=== PATIENT | male | born 1940 | race Caucasian/White ===

== ENCOUNTER 2020-05-06 10:36 | Inpatient (IN) | payer BC, MEDICARE ==
[2020-05-06] MEDS ORDERED: SODIUM CHLORIDE 0.9% 500 ML 500 ML IV STA (10:46)
--- NOTE | 2020-05-06 10:51 | ED ---
General Adult HPI - General Stated complaint: Altered mental status Time Seen by Provider: 05/06/20 10:39 Source: patient Mode of arrival: EMS Limitations: no limitations - History of Present Illness Initial comments: Dictation was produced using [employer] dictation software. please excuse any grammatical, word or spelling errors. This patient was cared for during a federal and state declared state of emergency secondary to Covid 19 Chief Complaint: 79-year-old male presents with altered mental status. History of Present Illness: 79-year-old male is brought in by EMS for altered mental status. Patient was allegedly on the phone with his significant other who lives in [place]. He was found to be really abnormal with his speech over the phone. EMS was called. Patient allegedly lives alone. He has his family members assist with taking care of him. Patient unable to provide history of present illness this time. According to EMS who received report from patient's daughter that he's been seemingly more confused over the last 7 days however considerably worse this morning. It's unclear with patient's medical history is. Patient unable to provide detailed HPI. Unable to obtain significant mental status PHYSICAL EXAM: General Impression: Alert and oriented x2/4, not in acute distress HEENT: Normocephalic atraumatic, extra-ocular movements intact, pupils equal and reactive to light bilaterally, mucous membranes moist. Cardiovascular: Heart regular rate and rhythm Chest: Able to complete full sentences, no retractions, no tachypnea Abdomen: abdomen soft, non-tender, non-distended, no organomegaly Musculoskeletal: Pulses present and equal in all extremities, no peripheral edema Motor: no focal deficits noted Neurological: CN II-XII grossly intact, no focal motor or sensory deficits noted, and NIH 4, aphasic Skin: Intact with no visualized rashes ED course: 79-year-old male with unknown past medical history presents with altered mental status. Code stroke was paged. Patient is NIH of 0. He is aphasic. At this point is unclear when the onset of symptoms was. Rest of history suggesting of 7 days or yesterday. Case is discussed with Dr. Murray, stroke neurologist at approximately 10:55 AM. Patient not a TPA candidate. Computed tomography scan of the brain shows no acute processes. Chest x-ray does show patchy infiltrates concerning for pneumonia. CT angios the head and neck shows 60% luminal diameter narrowing of the proximal right internal carotid artery. No other vascular negative she is noted. There are patchy groundglass opacities in the lungs concerning for coronavirus. Pending rapid coronavirus test. Patient given azithromycin. EKG shows no onset atrial fibrillation. Patient started on heparin. Patient given aspirin. Patient be admitted. Case was discussed with Dr. Ruby who is willing to accept patients care. Neurology will be consulted. EKG interpretation: Ventricular rate 81, A. fib, QRS 96, QTC 462. No IL prolongation, no QTC prolongation, no ST or T-wave changes noted. - Related Data Home Medications Medication Instructions Recorded Confirmed Atorvastatin Calcium [Lipitor] 20 mg PO DAILY 05/06/20 05/06/20 Clopidogrel [Plavix] 75 mg PO DAILY 05/06/20 05/06/20 Lisinopril-Hctz 20-25 mg 1 tab PO DAILY 05/06/20 05/06/20 [Zestoretic 20-25] Allergies Allergy/AdvReac Type Severity Reaction Status Date / Time No Known Allergies Allergy Verified 05/06/20 11:56 Review of Systems ROS Statement: Those systems with pertinent positive or pertinent negative responses have been documented in the HPI. ROS Other: All systems not noted in ROS Statement are negative. Past Medical History Past Medical History: CVA/TIA History of Any Multi-Drug Resistant Organisms: None Reported Past Surgical History: Unable to Obtain Past Psychological History: No Psychological Hx Reported Smoking Status: Never smoker Past Alcohol Use History: None Reported Past Drug Use History: None Reported General Exam Limitations: no limitations Course Vital Signs 05/06/20 05/06/20 11:23 12:43 Temperature 98.5 F Pulse Rate 77 78 Respiratory 16 14 Rate Blood Pressure 137/70 109/70 O2 Sat by Pulse 97 96 Oximetry Medical Decision Making - Lab Data Result diagrams: 05/06/20 11:24 05/06/20 11:24 Lab Results 05/06/20 05/06/20 05/06/20 Range/Units 11:24 11:24 11:24 WBC 3.4 L (3.8-10.6) k/uL RBC 3.91 L (4.30-5.90) m/uL Hgb 12.5 L (13.0-17.5) gm/dL Hct 36.2 L (39.0-53.0) % MCV 92.6 (80.0-100.0) fL MCH 31.9 (25.0-35.0) pg MCHC 34.5 (31.0-37.0) g/dL RDW 13.0 (11.5-15.5) % Plt Count 178 (150-450) k/uL MPV 7.6 Neutrophils % 83 % Lymphocytes % 8 % Monocytes % 7 % Eosinophils % 0 % Basophils % 0 % Neutrophils # 2.8 (1.3-7.7) k/uL Lymphocytes # 0.3 L (1.0-4.8) k/uL Monocytes # 0.2 (0-1.0) k/uL Eosinophils # 0.0 (0-0.7) k/uL Basophils # 0.0 (0-0.2) k/uL PT 11.4 (9.0-12.0) sec INR 1.1 (<1.2) APTT 19.2 L (22.0-30.0) sec Sodium 131 L (137-145) mmol/L Potassium 3.7 (3.5-5.1) mmol/L Chloride 97 L (98-107) mmol/L Carbon Dioxide 26 (22-30) mmol/L Anion Gap 8 mmol/L BUN 63 H (9-20) mg/dL Creatinine 1.27 H (0.66-1.25) mg/dL Est GFR (CKD-EPI)AfAm 62 (>60 ml/min/1.73 sqM) Est GFR (CKD-EPI)NonAf 53 (>60 ml/min/1.73 sqM) Glucose 157 H (74-99) mg/dL Calcium 7.8 L (8.4-10.2) mg/dL Total Bilirubin 1.2 (0.2-1.3) mg/dL AST 49 (17-59) U/L ALT 30 (4-49) U/L Alkaline Phosphatase 32 L (38-126) U/L Troponin I (0.000-0.034) ng/mL Total Protein 5.5 L (6.3-8.2) g/dL Albumin 3.0 L (3.5-5.0) g/dL 12/15/20 Range/Units 11:24 WBC (3.8-10.6) k/uL RBC (4.30-5.90) m/uL Hgb (13.0-17.5) gm/dL Hct (39.0-53.0) % MCV (80.0-100.0) fL MCH (25.0-35.0) pg MCHC (31.0-37.0) g/dL RDW (11.5-15.5) % Plt Count (150-450) k/uL MPV Neutrophils % % Lymphocytes % % Monocytes % % Eosinophils % % Basophils % % Neutrophils # (1.3-7.7) k/uL Lymphocytes # (1.0-4.8) k/uL Monocytes # (0-1.0) k/uL Eosinophils # (0-0.7) k/uL Basophils # (0-0.2) k/uL PT (9.0-12.0) sec INR (<1.2) APTT (22.0-30.0) sec Sodium (137-145) mmol/L Potassium (3.5-5.1) mmol/L Chloride (98-107) mmol/L Carbon Dioxide (22-30) mmol/L Anion Gap mmol/L BUN (9-20) mg/dL Creatinine (0.66-1.25) mg/dL Est GFR (CKD-EPI)AfAm (>60 ml/min/1.73 sqM) Est GFR (CKD-EPI)NonAf (>60 ml/min/1.73 sqM) Glucose (74-99) mg/dL Calcium (8.4-10.2) mg/dL Total Bilirubin (0.2-1.3) mg/dL AST (17-59) U/L ALT (4-49) U/L Alkaline Phosphatase (38-126) U/L Troponin I 0.050 H* (0.000-0.034) ng/mL Total Protein (6.3-8.2) g/dL Albumin (3.5-5.0) g/dL Disposition Clinical Impression: Stroke, New onset a-fib, Pneumonia Disposition: ADMITTED IP TO THIS [facility] Condition: Fair Referrals: Naz Ruby DO [Primary Care Provider] - 1-2 days Decision Time: 13:09
--- NOTE | 2020-05-06 11:12 | CT ---
EXAMINATION TYPE: CT brain wo con for TPA DATE OF EXAM: 05/06/2020 COMPARISON: 05/16/2020 INDICATION: Neuro deficits DLP: 1074.8 mGycm, Automated exposure control for dose reduction was used. CONTRAST: None CT of the brain is performed utilizing 3 mm thick sections through the posterior fossa and 3 mm thick sections through the remaining calvarium. Study is performed within 24 hours of arrival to the hosp ital. No abnormal hyperdensity is present to suggest an acute intracranial hemorrhage. No mass lesion is evident. Physiologic basal ganglion calcifications present bilaterally. No acute infarcts are evident. Ventricles and sulci are prominent for the patient age. Paranasal sinuses and mastoid air cells within the [id number] are clear. No significant interval change. IMPRESSIONS: 1. Atrophy. 2. No acute intracranial process.
--- NOTE | 2020-05-06 11:39 | XR ---
EXAMINATION TYPE: XR chest 2V DATE OF EXAM: 05/06/2020 COMPARISON: 06/16/2013 TECHNIQUE: PA and lateral views submitted. HISTORY: Altered mental status FINDINGS: There is patchy bilateral areas of consolidation and interstitial prominence. Prominence the right hi lum also noted. Patient is rotated which may account for the finding. No sizable pneumothorax. Arthro joel of the shoulders. Heart size normal. IMPRESSION: 1. Patchy bilateral infiltrates correlate for developing pneumonia, interstitial pneumonia or venous congestion
[2020-05-06 11:40] LABS: Basophils % (A) 0 %; Eosinophils % (A) 0 %; HCT 36.2 % (39.0-53.0); HGB 12.5 gm/dL (13.0-17.5); Lymphocytes # (A) 0.3 k/uL (1.0-4.8); Lymphocytes % (A) 8 %; MCH 31.9 pg (25.0-35.0); MCHC 34.5 g/dL (31.0-37.0); MCV 92.6 fL (80.0-100.0); Mean Platelet Volume 7.6; Monocytes # (A) 0.2 k/uL (0-1.0); Monocytes % (A) 7 %; Neutrophils # (A) 2.8 k/uL (1.3-7.7); Neutrophils % (A) 83 %; Platelet Count 178 k/uL (150-450); RBC 3.91 m/uL (4.30-5.90); WBC 3.4 k/uL (3.8-10.6)
[2020-05-06 11:49] LABS: Calcium 7.8 mg/dL (8.4-10.2); Potassium 3.7 mmol/L (3.5-5.1); Total Bilirubin 1.2 mg/dL (0.2-1.3); Total Protein 5.5 g/dL (6.3-8.2)
[2020-05-06 11:57] LABS: INR 1.1 (<1.2); Prothrombin Time 11.4 sec (9.0-12.0)
--- NOTE | 2020-05-06 12:13 | CT ---
EXAMINATION TYPE: CT angio head neck DATE OF EXAM: 05/06/2020 HISTORY: AMS, code stroke. Acute onset neuro deficit. COMPARISON: CTA neck March 11, 2016 CT DLP: 574.6 mGycm. Automated Exposure Control for Dose Reduction was Utilized. TECHNIQUE: CTA scan of the head and neck are performed with IV Contrast, patient injected with 65 mL of Isovue 370, axial images are obtained, coronal and sagittal reformatted images are reviewed. Thre e-D reconstructed images are created on an independent workstation and reviewed. FINDINGS: Carotid/Vascular Structures: Normal three-vessel origin from aortic arch. Normal origin right common carotid artery from the right brachiocephalic artery. Stable mild to moderate eccentric noncalcified plaque in the left subclavian artery. No significant stenosis. No significant plaque or stenosis righ t common carotid artery. Persistent severe predominantly noncalcified plaque right carotid bulb exten ds into proximal internal carotid artery causing significant stenosis over roughly 1.0 to 1.5 cm segm ent, ligament diameter narrowed to 2.0 mm and reconstitutes to 5.0 mm superior to this. This has prog ressed from 2016 study. Remainder right internal carotid artery shows mild calcified plaque. No signi ficant plaque or stenosis right external carotid artery. There is [id number] calcified plaque l eft carotid bulb extending into proximal internal carotid artery without significant stenosis. Remain mery of common and internal carotid arteries is unremarkable. Patent external carotid artery. Dominant right vertebral artery filling the basilar artery is redemonstrated. Patent left posterior c ommunicating artery is redemonstrated. Hypoplastic right posterior communicating artery. No new signi ficant focal stenosis or aneurysmal change of the posterior circulation. Patent small caliber anterio r communicating artery. No significant focal stenosis or aneurysmal change in the anterior circulatio n. Other: Moderate disc space narrowing and spurring C4-C5 through C6-C7 levels with straightening align ment. Visualized upper lungs show partial visualization of groundglass opacities and peripheral organ izing consolidations bilaterally. IMPRESSION: 1. Significant stenosis proximal right internal carotid artery up to 60% luminal diameter narrowing p rogressed from 2016 study. 2. No new significant stenosis or aneurysm at level of [place]. 3. Patchy areas of groundglass opacity and organizing peripheral consolidation in the visualized uppe r lungs, correlate to exclude covid-19 infection in current environment.
[2020-05-06 12:21] LABS: Partial Thromboplastin Time 19.2 sec (22.0-30.0)
[2020-05-06] MEDS ORDERED: HEPARIN SODIUM,PORCINE 5,000 UNIT/ML 1 ML VIAL IV ONE (12:58)
[2020-05-06] MEDS ORDERED: AZITHROMYCIN 500 MG in SODIUM CHLORIDE 0.9% 250 ML IVPB STA (12:58)
[2020-05-06] MEDS ORDERED: HEPARIN SODIUM,PORCINE 5,000 UNIT/ML 1 ML VIAL IV PRN (12:58)
[2020-05-06] MEDS ORDERED: ASPIRIN 81 MG PO STA (13:07)
[2020-05-06] MEDS: SODIUM CHLORIDE 0.9% 1,000 ML IV SCH ×2 (14:31→23:52)
[2020-05-06] MEDS: HEPARIN SOD,PORK IN 0.45% NACL 25,000 UNIT in 0.45% NACL 1 250ML.BAG IV SCH (14:41)
[2020-05-06] MEDS ORDERED: ACETAMINOPHEN TAB 325 MG TAB PO PRN (18:46)
[2020-05-06] MEDS ORDERED: ATORVASTATIN 80 MG TAB PO SCH (21:00)
[2020-05-06] MEDS: TIMOLOL 0.5% OPHTH DROPS 5 ML BTL RIGHT EYE SCH (22:16)
[2020-05-06] MEDS: prednisoLONE ACETATE 1% OPHTH DROPS 5 ML BTL RIGHT EYE SCH (22:17)
[2020-05-07 06:31] LABS: Cholesterol 79 mg/dL (<200); HDL Cholesterol 23 mg/dL (40-60); LDL Cholesterol,Calculated 43 mg/dL (0-99); Triglycerides 65 mg/dL (<150)
[2020-05-07] MEDS ORDERED: ASPIRIN 325 MG TAB PO SCH (09:00)
[2020-05-07 09:02] LABS: African American GFR (CKD) >90 (>60 ml/min/1.73 sqM); Anion Gap 2 mmol/L; Blood Urea Nitrogen 34 mg/dL (9-20); Calcium 7.6 mg/dL (8.4-10.2); Carbon Dioxide 31 mmol/L (22-30); Chloride 102 mmol/L (98-107); Glucose 117 mg/dL (74-99); Non-African American GFR(CKD) 85 (>60 ml/min/1.73 sqM); Potassium 3.4 mmol/L (3.5-5.1); Sodium 135 mmol/L (137-145)
[2020-05-07 09:03] LABS: Basophils % (A) 1 %; Eosinophils % (A) 1 %; HCT 34.7 % (39.0-53.0); HGB 12.4 gm/dL (13.0-17.5); Lymphocytes # (A) 0.5 k/uL (1.0-4.8); Lymphocytes % (A) 12 %; MCH 33.5 pg (25.0-35.0); MCHC 35.9 g/dL (31.0-37.0); MCV 93.5 fL (80.0-100.0); Mean Platelet Volume 7.4; Monocytes # (A) 0.3 k/uL (0-1.0); Monocytes % (A) 9 %; Neutrophils # (A) 2.9 k/uL (1.3-7.7); Neutrophils % (A) 77 %; Platelet Count 169 k/uL (150-450); RBC 3.71 m/uL (4.30-5.90); RDW 12.3 % (11.5-15.5); WBC 3.8 k/uL (3.8-10.6)
[2020-05-07] MEDS: prednisoLONE ACETATE 1% OPHTH DROPS 5 ML BTL RIGHT EYE SCH ×3 (10:13→21:11)
[2020-05-07] MEDS: TIMOLOL 0.5% OPHTH DROPS 5 ML BTL RIGHT EYE SCH ×3 (10:13→21:11)
[2020-05-07] MEDS: CLOPIDOGREL 75 MG TAB PO SCH (10:13)
[2020-05-07] MEDS: ATORVASTATIN 20 MG TAB PO SCH (10:13)
[2020-05-07] MEDS: LISINOPRIL-HCTZ 20-25 MG 1 EACH TAB PO SCH (10:13)
[2020-05-07 11:51] LABS: Glucose,Whole Blood 109 mg/dL (75-99)
[2020-05-07] MEDS ORDERED: Potassium Replacement Protocol 1 EACH MISC MISCELLANE PRN (12:48)
--- NOTE | 2020-05-07 13:00 | P.CNNES ---
History of Present Illness Consult date: 05/07/20 Requesting physician: Papito Hawkins Reason for Consult: CVA History of Present Illness: Patient is a 79-year-old male, came to the hospital yesterday at 10:36 AM by ambulance for altered mental status. Patient does not know why he came to the hospital, states "somebody sent me here". according to the electronic records, patient was on the phone with his significant other who lives in [place]. She noted that patient was speaking abnormal over the phone. Patient has been seemingly more confused over last 7 days however considerably worse this morning. Stroke code was initiated, his NIH stroke scale was 0. Patient was aphasic. Patient's onset of symptoms was not clear, therefore patient was considered not a candidate for TPA. Vital signs on arrival was blood pressure 137/70, pulse is 77, temperature 98. 5.blood test showsWBC 3.4 hemoglobin 12.5 and platelets 178. PT/INR normal, sodium 131 potassium 3.7, BUN 63, creatinine 1.27, troponin mildly elevated 0.05,total cholesterol 79, LDL 43, HDL 23 and triglycerides 65. Patient is collins virus positive. Computed tomography scan of head showed no acute process, cerebral atrophy. CTA of head and neck showed significant stenosis proximal right ICA up to 60% luminal diameter narrowing progressed from 2016 study. No new significant stenosis or aneurysm at the level of [place]. Patchy areas of groundglass opacity and organizing peripheral consolidation in the visualized upper lungs, correlate to exclude Covid 19 infection in current environment. Patient's chest x-ray showed patchy bilateral infiltrates correlate for developing pneumonia, interstitial pneumonia or venous congestion. EKG shows atrial fibrillation. Patient has been started on heparin infusion. Patient takes Zestoretic, Plavix 75 mg, Lipitor 20 mg at home. Review of Systems patient denies any chest pain shortness of breath wheezing or cough. Denies any double vision, loss of vision, hearing loss, hoarseness, sore throat, dysphagia. Denies any abdominal pain nausea vomiting. All other review of systems unremarkable. Past Medical History Past Medical History: Atrial Fibrillation, CVA/TIA History of Any Multi-Drug Resistant Organisms: None Reported Past Surgical History: No Surgical Hx Reported Past Anesthesia/Blood Transfusion Reactions: No Reported Reaction Past Psychological History: No Psychological Hx Reported Smoking Status: Never smoker Past Alcohol Use History: None Reported Past Drug Use History: None Reported Medications and Allergies Home Medications Medication Instructions Recorded Confirmed Type Atorvastatin Calcium [Lipitor] 20 mg PO DAILY 05/06/20 05/06/20 History Clopidogrel [Plavix] 75 mg PO DAILY 05/06/20 05/06/20 History Lisinopril-Hctz 20-25 mg 1 tab PO DAILY 05/06/20 05/06/20 History [Zestoretic 20-25] Timolol 0.5% Ophth Soln [Timoptic 1 drop RIGHT EYE TID 05/06/20 05/06/20 History 0.5% Ophth Soln] prednisoLONE ACETATE 1% OPHTH 1 drop RIGHT EYE TID 05/06/20 05/06/20 History [Pred Forte 1%] Allergies Allergy/AdvReac Type Severity Reaction Status Date / Time No Known Allergies Allergy Verified 05/06/20 11:56 Physical Examination - Vital Signs Vital Signs: Vital Signs Temp Pulse Pulse Resp BP BP Pulse Ox 05/07/20 04:00 98.0 F 65 18 105/58 94 L 05/07/20 02:00 65 18 05/07/20 00:00 97.6 F 65 18 130/72 97 05/06/20 20:00 97.4 F L 65 18 116/56 94 L 05/06/20 16:32 99.1 F 61 16 115/62 99 05/06/20 15:10 69 18 129/81 100 05/06/20 14:04 69 18 103/63 98 05/06/20 12:43 98.5 F 78 14 109/70 96 05/06/20 11:23 77 16 137/70 97 Intake and Output 05/06/20 05/07/20 05/07/20 22:59 06:59 14:59 Intake Total 236 944.206 Output Total 465 Balance 236 479.206 Intake: IV 800 0.9 800 Intake, IV Titration 144.206 Amount Heparin Sod,Pork in 0.45% 144.206 NaCl 25,000 unit In 0.45 % NaCl 1 250ml.bag @ 12 UNITS/KG/HR 9.972 mls/hr IV .Q24H [facility] Rx#: [id number] Oral 236 Output: Urine 465 Other: Voiding Method Toilet Toilet # Voids 1 1 Weight 83.098 kg 76 kg on examination patient is an elderly male, in no acute distress. Patient is alert and awake. Speech and language functions are normal. Attention, concentration, fund of knowledge appears adequate. He knows that he is in [facility] in [facility] and that it is April 2020. Knows his name and age. On cranial nerve examination pupils are round and reactive to light, visual russell are full to confrontation, extraocular muscles are intact with no nystagmus. Face is symmetric, tongue protrudes to the midline. Palatal elevation and sensation normal. Hearing and shoulder shrug normal. On muscle strength testing there is no pronator drift and the strength is normal in arms and legs distally and proximally reflexes are 1+ and plantars downgoing. Sensory touch is equal. No ataxia for liduqm-rb-oein testing, tone and bulk of muscles normal. Gait deferred. On general examination, there is no obvious murmur, S1 and S2 audible, abdomen soft nontender, chest is clear, neck is supple, peripheral pulses are present. No edema. Results - Laboratory Findings CBC and BMP: 05/07/20 07:56 05/07/20 07:56 Abnormal Lab Findings: Abnormal Labs 05/06/20 05/06/20 05/06/20 11:24 11:24 11:24 WBC 3.4 L RBC 3.91 L Hgb 12.5 L Hct 36.2 L Lymphocytes # 0.3 L APTT 19.2 L Sodium 131 L Potassium Chloride 97 L Carbon Dioxide BUN 63 H Creatinine 1.27 H Glucose 157 H Calcium 7.8 L Alkaline Phosphatase 32 L Troponin I Total Protein 5.5 L Albumin 3.0 L HDL Cholesterol Coronavirus (PCR) 05/06/20 05/06/20 05/06/20 11:24 14:45 22:22 WBC RBC Hgb Hct Lymphocytes # APTT 76.4 H Sodium Potassium Chloride Carbon Dioxide BUN Creatinine Glucose Calcium Alkaline Phosphatase Troponin I 0.050 H* Total Protein Albumin HDL Cholesterol Coronavirus (PCR) Detected A 05/07/20 05/07/20 05/07/20 05:31 05:31 07:56 WBC RBC 3.71 L Hgb 12.4 L Hct 34.7 L Lymphocytes # 0.5 L APTT 67.7 H Sodium Potassium Chloride Carbon Dioxide BUN Creatinine Glucose Calcium Alkaline Phosphatase Troponin I Total Protein Albumin HDL Cholesterol 23 L Coronavirus (PCR) 05/07/20 05/07/20 07:56 07:56 WBC RBC Hgb Hct Lymphocytes # APTT Sodium 135 L Potassium 3.4 L Chloride Carbon Dioxide 31 H BUN 34 H Creatinine Glucose 117 H Calcium 7.6 L Alkaline Phosphatase Troponin I 0.043 H* Total Protein Albumin HDL Cholesterol Coronavirus (PCR) Assessment and Plan Assessment: * Probable TIA manifesting with transient aphasia, now seems to have resolved. His current examination is normal, with NIH stroke scale is 0. * New onset atrial fibrillation * Right ICA stenosis, 60%, progressed from 2016 study. * Acute COVID-19 infection. Plan: * Patient has been started on Apixaban 5 mg twice a day for atrial fibrillation, for secondary stroke prevention. * Patient is also on Plavix 75 mg daily for atherosclerotic carotid disease. Consider vascular surgical consultation. * Continue Lipitor 20 mg. Patient's lipids are well controlled, with belkys sterol 79, LDL 43, HDL 23 and triglycerides 65. * We will check hemoglobin A1c. * 2-D echo completed, results pending. Cardiology on the case.
[2020-05-07] MEDS: POTASSIUM CHLORIDE ER 20 MEQ TAB.ER PO SCH ×2 (13:22→13:23)
[2020-05-07] MEDS: APIXABAN 5 MG TAB PO SCH ×2 (13:22→21:10)
[2020-05-07] MEDS: SODIUM CHLORIDE 0.9% 1,000 ML IV SCH ×2 (13:22→21:13)
[2020-05-07] MEDS: HEPARIN SOD,PORK IN 0.45% NACL 25,000 UNIT in 0.45% NACL 1 250ML.BAG IV SCH (13:23)
--- NOTE | 2020-05-07 15:28 | P.CRDCN ---
History of Present Illness Consult date: 05/07/20 History of present illness: CHIEF COMPLAINT: New onset atrial fibrillation HISTORY OF PRESENT ILLNESS: This is a 79-year-old male with a past medical history significant for TIA, hyperlipidemia, hypertension. Patient is admitted to hospital secondary to possible CVA. We have been asked to see the patient in consultation for new onset atrial fibrillation. DIAGNOSTICS: EKG reveals atrial fibrillation with controlled ventricular rate Chest xray patchy bilateral infiltrates. Correlate for developing pneumonia, interstitial pneumonia, or venous congestion Laboratory data: W BC 3.8. Hemoglobin 12.4. Platelet count 169. Sodium 135. Potassium 3.4. BUN 34. Creatinine 0.81. Troponin 0.050. 0.043. Current home cardiac medications include Lipitor 20 mg daily, Plavix 75mg daily, and lisinopril-HCTZ 20-25mg daily REVIEW OF SYSTEMS: Thorough review of systems not completed secondary to limited evaluation/examination and due to Covid19 PHYSICAL EXAM: Thorough physical exam not completed secondary to limited evaluation/examination and due to Covid19 ASSESSMENT: Acute Covid 19 New-onset atrial fibrillation Possible CVA Hypertension Hyperlipidemia PLAN: Resume home cardiac medications Obtain 2-D echo to assess cardiac structure and function Continue Plavix 75 mg daily. Discontinue aspirin. Begin Eliquis 5 mg PO BID Further recommendations pending patient course Nurse practitioner note has been reviewed by physician. Signing provider agrees with the documented findings, assessment, and plan of care. Past Medical History Past Medical History: Atrial Fibrillation, CVA/TIA History of Any Multi-Drug Resistant Organisms: None Reported Past Surgical History: No Surgical Hx Reported Past Anesthesia/Blood Transfusion Reactions: No Reported Reaction Past Psychological History: No Psychological Hx Reported Smoking Status: Never smoker Past Alcohol Use History: None Reported Past Drug Use History: None Reported Medications and Allergies Home Medications Medication Instructions Recorded Confirmed Type Atorvastatin Calcium [Lipitor] 20 mg PO DAILY 05/06/20 05/06/20 History Clopidogrel [Plavix] 75 mg PO DAILY 05/06/20 05/06/20 History Lisinopril-Hctz 20-25 mg 1 tab PO DAILY 05/06/20 05/06/20 History [Zestoretic 20-25] Timolol 0.5% Ophth Soln [Timoptic 1 drop RIGHT EYE TID 05/06/20 05/06/20 History 0.5% Ophth Soln] prednisoLONE ACETATE 1% OPHTH 1 drop RIGHT EYE TID 05/06/20 05/06/20 History [Pred Forte 1%] Allergies Allergy/AdvReac Type Severity Reaction Status Date / Time No Known Allergies Allergy Verified 05/06/20 11:56 Physical Exam Vitals: Vital Signs Temp Pulse Resp BP Pulse Ox 05/07/20 14:00 76 18 05/07/20 12:00 98.0 F 76 18 133/63 95 05/07/20 08:00 98.6 F 68 18 160/70 96 05/07/20 04:00 98.0 F 65 18 105/58 94 L 05/07/20 02:00 65 18 05/07/20 00:00 97.6 F 65 18 130/72 97 05/06/20 20:00 97.4 F L 65 18 116/56 94 L 05/06/20 16:32 99.1 F 61 16 115/62 99 Intake and Output 05/07/20 05/07/20 05/07/20 06:59 14:59 22:59 Intake Total 944.206 288.614 Output Total 465 200 Balance 479.206 88.614 Intake: IV 800 0.9 800 Intake, IV Titration 144.206 48.614 Amount Heparin Sod,Pork in 0.45% 144.206 48.614 NaCl 25,000 unit In 0.45 % NaCl 1 250ml.bag @ 12 UNITS/KG/HR 9.972 mls/hr IV .Q24H [facility] Rx#: [id number] Oral 240 Output: Urine 465 200 Other: Voiding Method Toilet Toilet # Voids 1 1 Weight 76 kg Results 05/07/20 07:56 05/07/20 07:56 Cardiac Enzymes 05/07/20 Range/Units 07:56 Troponin I 0.043 H* (0.000-0.034) ng/mL Coagulation 05/06/20 05/07/20 05/07/20 Range/Units 22:22 05:31 11:49 APTT 76.4 H 67.7 H 38.3 H (22.0-30.0) sec Lipids 05/07/20 Range/Units 05:31 Triglycerides 65 (<150) mg/dL Cholesterol 79 (<200) mg/dL HDL Cholesterol 23 L (40-60) mg/dL CBC 05/07/20 Range/Units 07:56 WBC 3.8 (3.8-10.6) k/uL RBC 3.71 L (4.30-5.90) m/uL Hgb 12.4 L (13.0-17.5) gm/dL Hct 34.7 L (39.0-53.0) % Plt Count 169 (150-450) k/uL Comprehensive Metabolic Panel 05/07/20 Range/Units 07:56 Sodium 135 L (137-145) mmol/L Potassium 3.4 L (3.5-5.1) mmol/L Chloride 102 (98-107) mmol/L Carbon Dioxide 31 H (22-30) mmol/L BUN 34 H (9-20) mg/dL Creatinine 0.81 (0.66-1.25) mg/dL Glucose 117 H (74-99) mg/dL Calcium 7.6 L (8.4-10.2) mg/dL Current Medications Generic Name Dose Route Start Last Admin Trade Name Freq PRN Reason Stop Dose Admin Acetaminophen 650 mg 05/06/20 18:46 Acetaminophen Tab 325 Mg Tab PO Q6HR PRN Fever and/ or Pain Apixaban 5 mg 05/07/20 12:00 05/07/20 13:22 Apixaban 5 Mg Tab PO 5 mg BID [facility] Administration Atorvastatin Calcium 20 mg 05/07/20 09:00 05/07/20 10:13 Atorvastatin 20 Mg Tab PO 20 mg DAILY [facility] Administration Clopidogrel Bisulfate 75 mg 05/07/20 09:00 05/07/20 10:13 Clopidogrel 75 Mg Tab PO 75 mg DAILY [facility] Administration Lisinopril/HCTZ 1 each 05/07/20 09:00 05/07/20 10:13 Lisinopril-Hctz 20-25 Mg 1 Each Tab PO 1 each DAILY [facility] Administration Heparin Sodium (Porcine) 0 unit 05/06/20 12:58 Heparin Sodium,Porcine 5,000 Unit/Ml 1 Ml Vial IV 05/07/20 18:00 PER PROTOCOL PRN Low PTT Protocol Heparin Sodium/Sodium Chloride 250 mls @ 9.972 mls/hr 05/06/20 13:00 05/07/20 13:23 25,000 unit/ Sodium Chloride IV 05/07/20 18:00 10 units/kg/hr .Q24H [facility] 8.31 mls/hr Administration Protocol 12 UNITS/KG/HR Sodium Chloride 1,000 mls @ 100 mls/hr 05/06/20 13:15 05/07/20 13:22 Saline 0.9% IV 100 mls/hr .Q10H [facility] Administration Miscellaneous Information 1 each 05/07/20 12:48 Potassium Replacement Protocol 1 Each Misc MISCELLANE DAILY PRN Per Protocol Protocol Prednisolone Acetate 1 drops 05/06/20 22:00 05/07/20 10:13 Prednisolone Acetate 1% Ophth Drops 5 Ml Btl RIGHT EYE 1 drops TID [facility] Administration Timolol Maleate 1 drops 05/06/20 22:00 05/07/20 10:13 Timolol 0.5% Ophth Drops 5 Ml Btl RIGHT EYE 1 drops TID [facility] Administration Intake and Output 05/07/20 05/07/20 05/07/20 06:59 14:59 22:59 Intake Total 944.206 288.614 Output Total 465 200 Balance 479.206 88.614 Intake: IV 800 0.9 800 Intake, IV Titration 144.206 48.614 Amount Heparin Sod,Pork in 0.45% 144.206 48.614 NaCl 25,000 unit In 0.45 % NaCl 1 250ml.bag @ 12 UNITS/KG/HR 9.972 mls/hr IV .Q24H [facility] Rx#: [id number] Oral 240 Output: Urine 465 200 Other: Voiding Method Toilet Toilet # Voids 1 1 Weight 76 kg 05/07/20 07:56 05/07/20 07:56
[2020-05-07] MEDS ORDERED: APIXABAN 5 MG TAB PO SCH (21:00)
--- NOTE | 2020-05-07 23:37 | P.HPIM ---
History of Present Illness H&P Date: 05/07/20 Chief Complaint: weakness, AMS Rory Ambriz is a 79 yo M with PMH of HTN, TIA who presented to the hospital via EMS after his significant other noticed him to be slurry words and not making sense. Pt does not remember what brought him into the hospital, apparently he had been acting more confused and lethargic over the past few days and he was on the phone with his significant other when she noticed his behavior. Pt denies cough or shortness of breath although admits to fatigue. On presentation BP stable, WBC 3.4 with lymphopenia, Cr 1.27, trop 0.05, COVID PCR positive. EKG did show new onset atrial fibrillation, CT head no acute process. Review of Systems All systems: negative Constitutional: Reports fatigue, Denies chills, Denies fever Eyes: denies blurred vision, denies pain Ears, nose, mouth and throat: Denies headache, Denies sore throat Cardiovascular: Denies chest pain, Denies shortness of breath Respiratory: Denies cough Gastrointestinal: Denies abdominal pain, Denies diarrhea, Denies nausea, Denies vomiting Musculoskeletal: Denies myalgias Integumentary: Denies pruritus, Denies rash Neurological: Reports aphasia, Reports memory loss, Denies numbness, Denies weakness Psychiatric: Denies anxiety, Denies depression Endocrine: Denies fatigue, Denies weight change Past Medical History Past Medical History: Atrial Fibrillation, CVA/TIA History of Any Multi-Drug Resistant Organisms: None Reported Past Surgical History: No Surgical Hx Reported Past Anesthesia/Blood Transfusion Reactions: No Reported Reaction Past Psychological History: No Psychological Hx Reported Smoking Status: Never smoker Past Alcohol Use History: None Reported Past Drug Use History: None Reported Medications and Allergies Home Medications Medication Instructions Recorded Confirmed Type Atorvastatin Calcium [Lipitor] 20 mg PO DAILY 05/06/20 05/06/20 History Clopidogrel [Plavix] 75 mg PO DAILY 05/06/20 05/06/20 History Lisinopril-Hctz 20-25 mg 1 tab PO DAILY 05/06/20 05/06/20 History [Zestoretic 20-25] Timolol 0.5% Ophth Soln [Timoptic 1 drop RIGHT EYE TID 05/06/20 05/06/20 History 0.5% Ophth Soln] prednisoLONE ACETATE 1% OPHTH 1 drop RIGHT EYE TID 05/06/20 05/06/20 History [Pred Forte 1%] Allergies Allergy/AdvReac Type Severity Reaction Status Date / Time No Known Allergies Allergy Verified 05/06/20 11:56 Physical Exam Vitals: Vital Signs Temp Pulse Resp BP Pulse Ox 05/07/20 20:00 98.0 F 76 18 127/58 96 05/07/20 16:00 98.0 F 70 18 132/94 96 05/07/20 14:00 76 18 05/07/20 12:00 98.0 F 76 18 133/63 95 05/07/20 08:00 98.6 F 68 18 160/70 96 05/07/20 04:00 98.0 F 65 18 105/58 94 L 05/07/20 02:00 65 18 05/07/20 00:00 97.6 F 65 18 130/72 97 Intake and Output 05/07/20 05/07/20 05/08/20 14:59 22:59 06:59 Intake Total 288.614 240 Output Total 200 625 Balance 88.614 -385 Intake: Intake, IV Titration 48.614 Amount Heparin Sod,Pork in 0.45% 48.614 NaCl 25,000 unit In 0.45 % NaCl 1 250ml.bag @ 12 UNITS/KG/HR 9.972 mls/hr IV .Q24H [facility] Rx#: [id number] Oral 240 240 Output: Urine 200 625 Other: Voiding Method Toilet Urinal # Voids 1 General: well nourished, well developed, NAD. Vitals reviewed Eyes: PERRL, EOMI, conjunctiva normal HENT: normocephalic, mucus membranes moist Neck: supple, no JVD Lungs: normal respiratory effort, no wheezes or rales CV: Irregularly irregular, no murmur. Peripheral pulses 2+ Abdomen: soft, nondistended, no organomegaly Lymph: no cervical or axillary LAD Skin: warm and dry. Neuro: A&Ox3, normal mood and affect Results CBC & Chem 7: 05/07/20 07:56 05/07/20 07:56 Labs: Abnormal Lab Results - Last 24 Hours (Table) 05/06/20 05/07/20 05/07/20 Range/Units 14:45 05:31 05:31 RBC (4.30-5.90) m/uL Hgb (13.0-17.5) gm/dL Hct (39.0-53.0) % Lymphocytes # (1.0-4.8) k/uL APTT 67.7 H (22.0-30.0) sec Sodium (137-145) mmol/L Potassium (3.5-5.1) mmol/L Carbon Dioxide (22-30) mmol/L BUN (9-20) mg/dL Glucose (74-99) mg/dL POC Glucose (mg/dL) (75-99) mg/dL Calcium (8.4-10.2) mg/dL Troponin I (0.000-0.034) ng/mL HDL Cholesterol 23 L (40-60) mg/dL Coronavirus (PCR) Detected A (Not Detected) 05/07/20 05/07/20 05/07/20 Range/Units 07:56 07:56 07:56 RBC 3.71 L (4.30-5.90) m/uL Hgb 12.4 L (13.0-17.5) gm/dL Hct 34.7 L (39.0-53.0) % Lymphocytes # 0.5 L (1.0-4.8) k/uL APTT (22.0-30.0) sec Sodium 135 L (137-145) mmol/L Potassium 3.4 L (3.5-5.1) mmol/L Carbon Dioxide 31 H (22-30) mmol/L BUN 34 H (9-20) mg/dL Glucose 117 H (74-99) mg/dL POC Glucose (mg/dL) (75-99) mg/dL Calcium 7.6 L (8.4-10.2) mg/dL Troponin I 0.043 H* (0.000-0.034) ng/mL HDL Cholesterol (40-60) mg/dL Coronavirus (PCR) (Not Detected) 05/07/20 05/07/20 05/07/20 Range/Units 11:48 11:49 18:48 RBC (4.30-5.90) m/uL Hgb (13.0-17.5) gm/dL Hct (39.0-53.0) % Lymphocytes # (1.0-4.8) k/uL APTT 38.3 H 48.5 H (22.0-30.0) sec Sodium (137-145) mmol/L Potassium (3.5-5.1) mmol/L Carbon Dioxide (22-30) mmol/L BUN (9-20) mg/dL Glucose (74-99) mg/dL POC Glucose (mg/dL) 109 H (75-99) mg/dL Calcium (8.4-10.2) mg/dL Troponin I (0.000-0.034) ng/mL HDL Cholesterol (40-60) mg/dL Coronavirus (PCR) (Not Detected) Thrombosis Risk Factor Assmnt - Choose All That Apply Any of the Below Risk Factors Present?: No Each Risk Factor Represents 3 Points: Age 75 years or older Thrombosis Risk Factor Assessment Total Risk Factor Score: 3 Thrombosis Risk Factor Assessment Level: Moderate Risk Assessment and Plan (1) TIA (transient ischemic attack) Current Visit: Yes Status: Acute Code(s): G45.9 - TRANSIENT CEREBRAL ISCHEMIC ATTACK, UNSPECIFIED SNOMED Code(s): 985821260 (2) COVID-19 Current Visit: Yes Status: Acute Code(s): U07.1 - COVID-19 SNOMED Code(s): 752161696 (3) New onset a-fib Current Visit: Yes Status: Acute Code(s): I48.91 - UNSPECIFIED ATRIAL FIBRILLATION SNOMED Code(s): 28143624 Plan: 1. TIA, likely secondary to COVID 19 and atrial fibrillation. Neurology consult, resume lipitor and plavix 2. Atrial fibrillation. Cardiology consulted, echocardiogram, start eliquis and continue plavix 3. Essential hypertension. Continue lisinopril 4. COVID 19 positive, start azithromycin, vitamin C
[2020-05-08 03:42] LABS: Hemoglobin A1C 6.6 % (4.0-6.0)
[2020-05-08] MEDS: SODIUM CHLORIDE 0.9% 1,000 ML IV SCH ×3 (06:18→21:11)
--- NOTE | 2020-05-08 07:59 | ECHOF ---
Referral Reason:new afib, lv function MEASUREMENTS -------- HEIGHT: 172.7 cm WEIGHT: 75.7 kg BP: RVIDd: 3.1 cm (< 3.3) IVSd: 1.1 cm (0.6 - 1.1) LVIDd: 3.4 cm (3.9 - 5.3) LVPWd: 1.2 cm (0.6 - 1.1) IVSs: 2.5 cm LVIDs: 1.3 cm LVPWs: 2.4 cm LA Diam: 1.3 cm (2.7 - 3.8) Ao Diam: 2.6 cm (2.0 - 3.7) AV Cusp: 2.0 cm (1.5 - 2.6) LA Diam: 3.8 cm (2.7 - 3.8) MV EXCURSION: 12.148 mm (> 18.000) MV EF SLOPE: 102 mm/s (70 - 150) EPSS: 0.7 cm AR PHT: 988 ms RAP: 5.00 mmHg RVSP: 21.99 mmHg FINDINGS -------- Undetermined rhythm. This was a technically adequate study. The left ventricular size is normal. There is borderline concentric left ventricular hypertrophy. Overall left ventricular systolic function is normal with, an EF between 55 - 60 %. The right ventricle is normal in size. The left atrial size is normal. The right atrial size is normal. Aortic valve is trileaflet and is mildly thickened. Trace amount of aortic regurgitation. The mitral valve is normal. There is trace mitral regurgitation. The tricuspid valve appears structurally normal. Trace tricuspid regurgitation present. Right evert tricular systolic pressure is normal at < 35 mmHg. There is no pulmonic regurgitation present. The aortic root size is normal. IVC Not well visulized. There is no pericardial effusion. CONCLUSIONS -------- 1. The left ventricular size is normal. 2. There is borderline concentric left ventricular hypertrophy. 3. Overall left ventricular systolic function is normal with, an EF between 55 - 60 %. 4. Aortic valve is trileaflet and is mildly thickened. 5. Trace amount of aortic regurgitation. 6. There is trace mitral regurgitation. 7. Trace tricuspid regurgitation present. 8. There is no pericardial effusion. CAR TOP BOLTER: Serene Ruelas RD
[2020-05-08] MEDS: CLOPIDOGREL 75 MG TAB PO SCH (08:43)
[2020-05-08] MEDS: ASCORBIC ACID 500 MG TAB PO SCH (08:43)
[2020-05-08] MEDS: APIXABAN 5 MG TAB PO SCH ×2 (08:43→21:06)
[2020-05-08] MEDS: LISINOPRIL-HCTZ 20-25 MG 1 EACH TAB PO SCH (08:43)
[2020-05-08] MEDS: ATORVASTATIN 20 MG TAB PO SCH (08:43)
[2020-05-08] MEDS: prednisoLONE ACETATE 1% OPHTH DROPS 5 ML BTL RIGHT EYE SCH ×3 (08:44→21:06)
[2020-05-08] MEDS: TIMOLOL 0.5% OPHTH DROPS 5 ML BTL RIGHT EYE SCH ×3 (08:44→21:06)
[2020-05-08] MEDS ORDERED: Potassium Replacement Protocol 1 EACH MISC MISCELLANE PRN (09:55)
[2020-05-08 12:13] LABS: Basophils % (A) 1 %; Eosinophils # (A) 0.1 k/uL (0-0.7); Eosinophils % (A) 1 %; HCT 35.7 % (39.0-53.0); HGB 12.2 gm/dL (13.0-17.5); Lymphocytes # (A) 0.6 k/uL (1.0-4.8); Lymphocytes % (A) 11 %; MCH 32.1 pg (25.0-35.0); MCHC 34.3 g/dL (31.0-37.0); MCV 93.7 fL (80.0-100.0); Mean Platelet Volume 7.4; Monocytes # (A) 0.3 k/uL (0-1.0); Monocytes % (A) 7 %; Neutrophils # (A) 3.9 k/uL (1.3-7.7); Neutrophils % (A) 79 %; Platelet Count 182 k/uL (150-450); RBC 3.81 m/uL (4.30-5.90)
[2020-05-08 12:30] LABS: African American GFR (CKD) >90 (>60 ml/min/1.73 sqM); Anion Gap 3 mmol/L; Blood Urea Nitrogen 24 mg/dL (9-20); Calcium 7.9 mg/dL (8.4-10.2); Carbon Dioxide 31 mmol/L (22-30); Chloride 101 mmol/L (98-107); Glucose 147 mg/dL (74-99); Non-African American GFR(CKD) >90 (>60 ml/min/1.73 sqM); Potassium 4.3 mmol/L (3.5-5.1); Sodium 135 mmol/L (137-145)
--- NOTE | 2020-05-08 15:03 | P.PN ---
Subjective Progress Note Date: 05/08/20 CHIEF COMPLAINT: New onset atrial fibrillation HISTORY OF PRESENT ILLNESS: This is a 79-year-old male with a past medical history significant for TIA, hyperlipidemia, hypertension. Patient is admitted to hospital secondary to possible CVA. Cardiology is following for new onset atrial fibrillation. Echocardiogram completed revealing ejection fraction 55-60%, trace mitral regurgitation, trace aortic regurgitation, and trace tricuspid regurgitation. PHYSICAL EXAM: Thorough physical exam not completed secondary to limited evaluation/examination and due to Covid19 ASSESSMENT: Acute Covid 19 New-onset paroxysmal atrial fibrillation Possible CVA Hypertension Hyperlipidemia PLAN: Continue current cardiac medications Continue Eliquis and Plavix. Aspirin does not need to be resumed. We will sign off. Please reconsult if needed. Patient to follow-up on an outpatient basis. Nurse practitioner note has been reviewed by physician. Signing provider agrees with the documented findings, assessment, and plan of care. Objective - Vital Signs Vital signs: Vital Signs Temp 99.7 F H 05/08/20 13:00 Pulse 68 05/08/20 14:00 Resp 18 05/08/20 14:00 BP 130/68 05/08/20 12:00 Pulse Ox 96 05/08/20 13:00 Intake & Output 05/07/20 05/08/20 05/08/20 18:59 06:59 18:59 Intake Total 528.614 80 480 Output Total 625 200 Balance -96.386 -120 480 Weight 79 kg Intake: IV 80 0.9 80 Intake, IV Titration 48.614 Amount Heparin Sod,Pork in 0.45% 48.614 NaCl 25,000 unit In 0.45 % NaCl 1 250ml.bag @ 12 UNITS/KG/HR 9.972 mls/hr IV .Q24H [facility] Rx#: [id number] Oral 480 480 Output: Urine 625 200 Other: Voiding Method Toilet Urinal Urinal # Voids 1 2 - Labs CBC & Chem 7: 05/08/20 12:00 05/08/20 12:00 Labs: Abnormal Lab Results - Last 24 Hours (Table) 05/07/20 05/07/20 05/08/20 Range/Units 18:48 18:48 12:00 RBC 3.81 L (4.30-5.90) m/uL Hgb 12.2 L (13.0-17.5) gm/dL Hct 35.7 L (39.0-53.0) % Lymphocytes # 0.6 L (1.0-4.8) k/uL APTT 48.5 H (22.0-30.0) sec Sodium (137-145) mmol/L Carbon Dioxide (22-30) mmol/L BUN (9-20) mg/dL Glucose (74-99) mg/dL Hemoglobin A1c 6.6 H (4.0-6.0) % Calcium (8.4-10.2) mg/dL 05/08/20 Range/Units 12:00 RBC (4.30-5.90) m/uL Hgb (13.0-17.5) gm/dL Hct (39.0-53.0) % Lymphocytes # (1.0-4.8) k/uL APTT (22.0-30.0) sec Sodium 135 L (137-145) mmol/L Carbon Dioxide 31 H (22-30) mmol/L BUN 24 H (9-20) mg/dL Glucose 147 H (74-99) mg/dL Hemoglobin A1c (4.0-6.0) % Calcium 7.9 L (8.4-10.2) mg/dL
[2020-05-08] MEDS: CHOLECALCIFEROL 1,000 UNIT TAB PO SCH (17:14)
--- NOTE | 2020-05-08 18:30 | P.DS ---
Providers Date of admission: 05/06/20 13:12 Expected date of discharge: 05/08/20 Attending physician: Clifford Ruby MD Consults: 05/06/20 13:10 Consult Physician Routine Consulting Provider: Marshall Castaneda Consult Reason/Comments: cva Do you want consulting provider notified?: Yes Primary care physician: Naz Ruby Hospital Course: Final Diagnoses: Transient aphasia, suspect TIA, symptoms resolved Acute Covid-19 infection Carotid stenosis, right ICA 60%, progressed from 2016, further follow-up outpatient with vascular surgery New onset paroxysmal A. fib Essential hypertension Hyperlipidemia Hospital course:Rory Ambriz is a 79 yo M with PMH of HTN, TIA who presented to the hospital via EMS after his significant other noticed him to be slurry words and not making sense. Pt does not remember what brought him into the hospital, apparently he had been acting more confused and lethargic over the past few days and he was on the phone with his significant other when she noticed his behavior. Pt denies cough or shortness of breath although admits to fatigue. On presentation BP stable, WBC 3.4 with lymphopenia, Cr 1.27, trop 0.05, COVID PCR positive. EKG did show new onset atrial fibrillation, CT head no acute process. Evaluated by both cardiology and neurology with recommendations noted and appreciated. Echo reported EF 55-60%. Continues on Eliquis and Plavix, statin. Cleared by both neurology and cardiology for discharge. Minimal low-grade fevers currently. Continue monitoring overnight with discharge planning in progress for tomorrow morning, in a stable condition with guarded prognosis. The impression and plan of care has been dictated as directed. : I performed a history and examination of this patient, discussed the same with the dictator. I agree with the dictator's note ,documented as a scribe. Any additional findings or plans will be noted. Patient Condition at Discharge: Stable Plan - Discharge Summary New Discharge Prescriptions: New Apixaban [Eliquis] 5 mg PO BID #60 tab Zinc Sulfate [Orazinc] 220 mg PO DAILY #30 capsule Ascorbic Acid [Vitamin C] 500 mg PO DAILY tab Cholecalciferol [Vitamin D3 (25 Mcg = 1000 Iu)] 1,000 unit PO DAILY #30 tablet Continue Lisinopril-Hctz 20-25 mg [Zestoretic 20-25] 1 tab PO DAILY Clopidogrel [Plavix] 75 mg PO DAILY Atorvastatin Calcium [Lipitor] 20 mg PO DAILY Timolol 0.5% Ophth Soln [Timoptic 0.5% Ophth Soln] 1 drop RIGHT EYE TID prednisoLONE ACETATE 1% OPHTH [Pred Forte 1%] 1 drop RIGHT EYE TID Discharge Medication List Atorvastatin Calcium [Lipitor] 20 mg PO DAILY 05/06/20 [History] Clopidogrel [Plavix] 75 mg PO DAILY 05/06/20 [History] Lisinopril-Hctz 20-25 mg [Zestoretic 20-25] 1 tab PO DAILY 05/06/20 [History] Timolol 0.5% Ophth Soln [Timoptic 0.5% Ophth Soln] 1 drop RIGHT EYE TID 05/06/20 [History] prednisoLONE ACETATE 1% OPHTH [Pred Forte 1%] 1 drop RIGHT EYE TID 05/06/20 [History] Apixaban [Eliquis] 5 mg PO BID #60 tab 05/08/20 [Rx] Ascorbic Acid [Vitamin C] 500 mg PO DAILY tab 05/08/20 [Rx] Cholecalciferol [Vitamin D3 (25 Mcg = 1000 Iu)] 1,000 unit PO DAILY #30 tablet 05/08/20 [Rx] Zinc Sulfate [Orazinc] 220 mg PO DAILY #30 capsule 05/08/20 [Rx] Follow up Appointment(s)/Referral(s): [facility] [Provider Group] - 2 Weeks Naz Ruby DO [Primary Care Provider] - 3 Days [facility], [NON-STAFF] - 1-2 Days Fred Palacios DO [STAFF PHYSICIAN] - 2 Weeks Activity/Diet/Wound Care/Special Instructions: Outpatient follow-up with vascular surgery regarding right internal carotid artery stenosis up to 60% progressed from 2016.
--- NOTE | 2020-05-08 19:50 | P.PN ---
Subjective Progress Note Date: 05/08/20 Patient was seen for a follow-up. Offers no complaints. Denies headache, denies any new focal symptoms. Objective - Vital Signs Vital signs: Vital Signs Temp 98.6 F 05/08/20 16:00 Pulse 70 05/08/20 16:00 Resp 18 05/08/20 16:00 BP 145/67 05/08/20 16:00 Pulse Ox 97 05/08/20 16:00 Intake & Output 05/08/20 05/08/20 05/09/20 06:59 18:59 06:59 Intake Total 80 720 Output Total 200 600 Balance -120 120 Weight 79 kg Intake: IV 80 0.9 80 Oral 720 Output: Urine 200 600 Other: Voiding Method Urinal Urinal # Voids 2 0 # Bowel Movements 0 - Exam On examination patient is alert and awake in no distress. Patient is very hard of hearing. Patient's speech and language functions are normal. Patient's pupils are round and reacting, visual russell are full, extraocular muscles intact, face is symmetric and tongue protrudes the midline. On muscle strength testing there is no pronator drift and the strength is normal in arms and legs. No ataxia. Sensations are equal with no neglect. - Labs CBC & Chem 7: 05/08/20 12:00 05/08/20 12:00 Labs: Abnormal Lab Results - Last 24 Hours (Table) 05/07/20 05/08/20 05/08/20 Range/Units 18:48 12:00 12:00 RBC 3.81 L (4.30-5.90) m/uL Hgb 12.2 L (13.0-17.5) gm/dL Hct 35.7 L (39.0-53.0) % Lymphocytes # 0.6 L (1.0-4.8) k/uL Sodium 135 L (137-145) mmol/L Carbon Dioxide 31 H (22-30) mmol/L BUN 24 H (9-20) mg/dL Glucose 147 H (74-99) mg/dL Hemoglobin A1c 6.6 H (4.0-6.0) % Calcium 7.9 L (8.4-10.2) mg/dL Assessment and Plan Assessment: * Probable TIA manifesting with transient aphasia, now seems to have resolved. His current examination is normal, with NIH stroke scale is 0. * New onset atrial fibrillation * Right ICA stenosis, 60%, progressed from 2016 study. * Acute COVID-19 infection. Plan: * Patient has been started on Apixaban 5 mg twice a day for atrial fibrillation, for secondary stroke prevention. * Patient is also on Plavix 75 mg daily for atherosclerotic carotid disease. Consider vascular surgical consultation. * Continue Lipitor 20 mg. Patient's lipids are well controlled, with cholesterol 79, LDL 43, HDL 23 and triglycerides 65. * Hemoglobin A1c 6.6, well controlled. * 2-D echo revealed normal left-ventricular size, borderline concentric LVH, EF is 55-60%. Aortic valve is trileaflet and is mildly thickened. Trace AR. Mild MR. Cardiology on the case. * Neurologically clear for discharge. We will sign off. Please reconsult if any concerns.
[2020-05-09 04:35] VITALS: RESP 16; TEMP 98.1
[2020-05-09] MEDS: ASCORBIC ACID 500 MG TAB PO SCH (09:45)
[2020-05-09] MEDS: ATORVASTATIN 20 MG TAB PO SCH (09:45)
[2020-05-09] MEDS: CLOPIDOGREL 75 MG TAB PO SCH (09:45)
[2020-05-09] MEDS: APIXABAN 5 MG TAB PO SCH (09:45)
[2020-05-09] MEDS: LISINOPRIL-HCTZ 20-25 MG 1 EACH TAB PO SCH (09:45)
[2020-05-09] MEDS: CHOLECALCIFEROL 1,000 UNIT TAB PO SCH (09:45)
[2020-05-09] MEDS: TIMOLOL 0.5% OPHTH DROPS 5 ML BTL RIGHT EYE SCH (09:47)
[2020-05-09] MEDS: prednisoLONE ACETATE 1% OPHTH DROPS 5 ML BTL RIGHT EYE SCH (09:47)
[2020-05-09 13:09] VITALS: BP 114/68; PULSE 72
== END 2020-05-09 11:54 | disposition home health service (06) | DRG 177 ==
LOC: EC 10:36 → 3SCARD 13:12
PROVIDERS: ADMIT Family Medicine; ATTEND Family Medicine
DX: U07.1 COVID-19 (principal); J12.89 Other viral pneumonia; R47.01 Aphasia; G45.9 Transient cerebral ischemic attack, unspecified; I48.91 Unspecified atrial fibrillation; R29.700 NIHSS score 0; E11.9 Type 2 diabetes mellitus without complications; D72.810 Lymphocytopenia; I65.21 Occlusion and stenosis of right carotid artery; I10 Essential (primary) hypertension; I48.0 Paroxysmal atrial fibrillation; E78.5 Hyperlipidemia, unspecified; Z79.899 Other long term (current) drug therapy; Z79.02 Long term (current) use of antithrombotics/antiplatelets; Z86.73 Personal history of transient ischemic attack (TIA), and cerebral infarction without residual deficits
CPT/HCPCS: 36415; 70450; 70496; 70498; 71046; 80048; 80053; 80061; 83036; 83735; 84484; 85025; 85610; 85730; 93005; 93306; 96365; 99285

== ENCOUNTER → 2020-06-19 | Outpatient (CLI) | payer MEDICARE ==
--- NOTE | 2020-06-19 19:16 | MR ---
MR brain without contrast HISTORY: Cerebrovascular accident, behavior changes, memory loss and balance Multiplanar multisequence imaging through the brain Correlation CT brain 05/06/2020 There is no restricted diffusion. Cortical atrophy is again noted. Cerebellopontine angles, corpus ca llosum, pituitary, cervical medullary junction are unremarkable. There is no hemorrhage or hydrocepha priscila. Periventricular scattered and confluent hyperintensities are present on inversion recovery T2-we ighted sequences, approximately 15-20 lesions are present. Mucoperiosteal thickening present within t he ethmoid air cells. The orbits show symmetric appearance. There are normal vascular flow voids. IMPRESSION: Age-related changes of atrophy and chronic small vessel ischemia.
== END | disposition home or self-care (01) ==
LOC: RADMRIMAIN 07:25
PROVIDERS: ATTEND Psychiatry & Neurology Neurology
DX: I67.82 Cerebral ischemia (principal); G31.1 Senile degeneration of brain, not elsewhere classified
CPT/HCPCS: 70551

== ENCOUNTER 2022-11-07 09:54 | Inpatient (IN) | payer MEDICARE ==
[2022-11-07] MEDS ORDERED: ACETAMINOPHEN TAB 500 MG TAB PO STA (10:11)
[2022-11-07 10:25] LABS: Glucose,Whole Blood 205 mg/dL (70-110)
[2022-11-07 10:37] LABS: Basophils % (A) 0 %; Eosinophils % (A) 0 %; HCT 39.8 % (39.0-53.0); HGB 13.3 gm/dL (13.0-17.5); Lymphocytes # (A) 0.5 k/uL (1.0-4.8); Lymphocytes % (A) 4 %; MCH 32.2 pg (25.0-35.0); MCHC 33.4 g/dL (31.0-37.0); MCV 96.1 fL (80.0-100.0); Mean Platelet Volume 7.8; Monocytes # (A) 1.1 k/uL (0-1.0); Monocytes % (A) 7 %; Neutrophils # (A) 13.2 k/uL (1.3-7.7); Neutrophils % (A) 89 %; Platelet Count 161 k/uL (150-450); RBC 4.14 m/uL (4.30-5.90); RDW 13.9 % (11.5-15.5); WBC 14.9 k/uL (3.8-10.6)
[2022-11-07 10:46] LABS: INR 1.1 (<1.2); Partial Thromboplastin Time 24.3 sec (22.0-30.0); Prothrombin Time 11.7 sec (9.0-12.0)
[2022-11-07 10:59] LABS: ALT 24 U/L (4-49); AST 29 U/L (17-59); African American GFR (CKD) 9 (>60 ml/min/1.73 sqM); Albumin 4.4 g/dL (3.5-5.0); Alkaline Phosphatase 62 U/L (38-126); Anion Gap 14 mmol/L; Blood Urea Nitrogen 61 mg/dL (9-20); Calcium 8.8 mg/dL (8.4-10.2); Carbon Dioxide 24 mmol/L (22-30); Chloride 100 mmol/L (98-107); Glucose 204 mg/dL (74-99); Non-African American GFR(CKD) 8 (>60 ml/min/1.73 sqM); Potassium 4.8 mmol/L (3.5-5.1); Sodium 138 mmol/L (137-145); Total Bilirubin 2.8 mg/dL (0.2-1.3); Total Protein 7.2 g/dL (6.3-8.2)
--- NOTE | 2022-11-07 10:59 | CT ---
EXAMINATION TYPE: CT brain wo con CT DLP: 1099.4 mGycm, Automated exposure control for dose reduction was used. DATE OF EXAM: 11/07/2022 10:44 AM COMPARISON: 05/06/2020. CLINICAL INDICATION:Male, 82 years old with history of Altered mental status, Altered mental status, Fever, confusion, History of stroke TECHNIQUE: Brain: Axial CT images of the brain were obtained with coronal and sagittal reformats created and rev iewed. Contrast used: None. Oral contrast used: None. FINDINGS: Brain: Extra-axial spaces: No abnormal extra-axial fluid collections. Ventricular system: Dilatation in proportion to cerebral atrophy. Cerebral parenchyma: Cerebral atrophy. Mineralization of the basal ganglia. No acute intraparenchymal hemorrhage or mass effect. The schreiber-white junction is well differentiated. Scattered hypoattenuatin g areas are seen within the white matter. Cerebellum: Unremarkable. Mass effect: No evidence of midline shift. Intracranial vasculature: Atherosclerotic calcifications of the intracranial vessels. Soft tissues: Normal. Calvarium/osseous structures: No depressed skull fracture. Paranasal sinuses and mastoid air cells: Mild scattered paranasal sinus disease. Visualized orbits: Bilateral aphakia IMPRESSION: 1. No acute intracranial process. 2. Nonspecific white matter changes, likely secondary to chronic small vessel ischemic disease.
--- NOTE | 2022-11-07 10:59 | XR ---
EXAMINATION TYPE: XR chest 2V DATE OF EXAM: 11/07/2022 10:44 AM COMPARISON: Chest radiographs from 05/06/2020 TECHNIQUE: XR chest 2V Frontal and lateral views of the chest. CLINICAL INDICATION:Male, 82 years old with history of altered mental status; FINDINGS: Lungs/Pleura: There is no evidence of pleural effusion, focal consolidation, or pneumothorax. Pulmonary vascularity: Unremarkable. Heart/mediastinum: Cardiomediastinal silhouette is prominent in size. Musculoskeletal: No acute osseous pathology. IMPRESSION: No acute cardiopulmonary disease/process.
[2022-11-07 11:48] LABS: Appearance,Urine Turbid (Clear); Bilirubin,Urine Negative (Negative); Blood,Urine Moderate (Negative); Color,Urine Light Red; Glucose,Urine (UA) Negative (Negative); Ketones,Urine Negative (Negative); Leukocyte Esterase,Urine Large (Negative); Nitrite,Urine Negative (Negative); Protein,Urine 3+ (Negative); RBC,Urine >182 /hpf (0-5); Urobilinogen,Urine <2.0 mg/dL (<2.0); WBC,Urine >182 /hpf (0-5)
[2022-11-07 11:50] LABS: Specific Gravity,Urine 1.011 (1.001-1.035)
[2022-11-07] MEDS ORDERED: cefTRIAXone IN SWFI 1,000 MG/10 ML SYRINGE IVP STA (11:55)
--- NOTE | 2022-11-07 11:55 | ED ---
Altered Mental Status HPI - General Chief Complaint: Altered Mental Status Stated Complaint: AMS Time Seen by Provider: 11/07/22 09:55 Source: EMS Mode of arrival: EMS Limitations: altered mental status - History of Present Illness Initial Comments: 82-year-old male with past medical history of CVA, A. fib who presents to the emergency department with altered mental status. Significant other is at bedside and provides the history. States that the patient was very fatigued yesterday. They went to visit her daughter in [place]. She states that he dosed off throughout the course of the day which is not atypical for him but he seemed more disoriented than usual. He does have some dementia. This morning the confusion seemed to be even worse and therefore she called EMS. Patient has no complaints. Denies headache or visual changes. Does not remember events from yesterday. No chest pain or shortness of breath. No abdominal pain. EMS did find that the patient had a fever. He denies cough or changes in his bowel habits. Does admit that he has had decreased frequency of urination. No other alleviating, precipitating modifying factors MD Complaint: confusion - Related Data Home Medications Medication Instructions Recorded Confirmed Atorvastatin Calcium [Lipitor] 20 mg PO HS 05/06/20 11/07/22 Timolol 0.5% Ophth Soln [Timoptic 1 drop RIGHT EYE TID 05/06/20 11/07/22 0.5% Ophth Soln] Donepezil [Aricept] 5 mg PO BID 06/23/22 11/07/22 Escitalopram [Lexapro] 10 mg PO DAILY 06/23/22 11/07/22 Memantine [Namenda] 10 mg PO BID 11/07/22 11/07/22 Mirabegron [Myrbetriq] 50 mg PO DAILY 11/07/22 11/07/22 oxyBUTYnin chloride [oxyBUTYnin 5 mg PO DAILY 11/07/22 11/07/22 chloride ER] Previous Rx's Medication Instructions Recorded Apixaban [Eliquis] 2.5 mg PO BID #60 tab 11/12/22 Ketoconazole 2% Cream [Nizoral 2%] 1 applic TOPICAL BID PRN #0 11/12/22 Magnesium Oxide [Mag-Ox] 400 mg PO BID #0 tab 11/12/22 amLODIPine [Norvasc] 5 mg PO BID #30 tab 11/12/22 polyethylene glycoL 3350 [Miralax] 17 gm PO DAILY packet 11/12/22 Ciprofloxacin HCl [Cipro] 500 mg PO Q12HR 5 Days #10 tab 11/15/22 Allergies Allergy/AdvReac Type Severity Reaction Status Date / Time No Known Allergies Allergy Verified 11/07/22 15:11 Review of Systems ROS Statement: Those systems with pertinent positive or pertinent negative responses have been documented in the HPI. ROS Other: All systems not noted in ROS Statement are negative. Past Medical History Past Medical History: Atrial Fibrillation, CVA/TIA, Sleep Apnea/CPAP/BIPAP Additional Past Medical History / Comment(s): Some memory issues. History of Any Multi-Drug Resistant Organisms: None Reported Past Surgical History: Hernia Repair Additional Past Surgical History / Comment(s): implant in bladder in 2021. (incontinence) States thinks he had a TURP. Past Anesthesia/Blood Transfusion Reactions: No Reported Reaction Past Psychological History: No Psychological Hx Reported Smoking Status: Never smoker Past Alcohol Use History: None Reported Past Drug Use History: None Reported - Past Family History Mother Family Medical History: Cancer Father Family Medical History: Myocardial Infarction (MA) Sister(s) Family Medical History: CVA/TIA General Exam Limitations: altered mental status General appearance: alert, in no apparent distress, lethargic Head exam: Present: atraumatic, normocephalic, normal inspection Eye exam: Present: normal appearance, PERRL, EOMI. Absent: scleral icterus, conjunctival injection, periorbital swelling ENT exam: Present: normal exam, mucous membranes moist Neck exam: Present: normal inspection. Absent: tenderness, meningismus, lymphadenopathy Respiratory exam: Present: normal lung sounds bilaterally. Absent: respiratory distress, wheezes, rales, rhonchi, stridor Cardiovascular Exam: Present: regular rate, normal rhythm, normal heart sounds. Absent: systolic murmur, diastolic murmur, rubs, gallop, clicks GI/Abdominal exam: Present: soft, normal bowel sounds. Absent: distended, tenderness, guarding, rebound, rigid Extremities exam: Present: normal inspection, full ROM, normal capillary refill. Absent: tenderness, pedal edema, joint swelling, calf tenderness Back exam: Present: normal inspection Neurological exam: Present: alert, CN II-XII intact Psychiatric exam: Present: flat affect Skin exam: Present: warm, dry, intact, normal color. Absent: rash Course Vital Signs 11/07/22 11/07/22 09:57 11:45 Temperature 102.1 F H 98.6 F Pulse Rate 86 Respiratory 20 Rate Blood Pressure 179/83 O2 Sat by Pulse 97 Oximetry Medical Decision Making - Medical Decision Making Was pt. sent in by a medical professional or institution (, PARK, VENEREAL DISEASE INVESTIGATOR, urgent care, hospital, or snf...) When possible be specific @ -no Did you speak to anyone other than the patient for history (EMS, parent, family, police, friend...)? What history was obtained from this source @ -significant other provides history Did you review nursing and triage notes (agree or disagree)? Why? @ -I reviewed and agree with nursing and triage notes Were old charts reviewed (outside hosp., previous admission, EMS record, old EKG, old radiological studies, urgent care reports/EKG's, snf records)? Report findings @ -no Differential Diagnosis (chest pain, altered mental status, abdominal pain women, abdominal pain men, vaginal bleeding, weakness, fever, dyspnea, syncope, headache, dizziness, GI bleed, back pain, seizure, CVA, palpatations, mental health, musculoskeletal)? @ -cva, sah, brain mass, sepsis, uti, alyssa EKG interpreted by me (3pts min.). @ -Yes and demonstrates sinus rhythm with a rate of 89. AZ interval 182. QRS 100. QTC of 406. No acute ST segment elevation or depression X-rays interpreted by me (1pt min.). @ yes - no acute process CT interpreted by me (1pt min.). @ -yes - no acute process U/S interpreted by me (1pt. min.). @ -None done What testing was considered but not performed or refused? (CT, X-rays, U/S, labs)? Why? @ -None What meds were considered but not given or refused? Why? @ -None Did you discuss the management of the patient with other professionals (professionals i.e. P[facility] Isbell, VENEREAL DISEASE INVESTIGATOR, lab, RT, psych nurse, social media intern, burn center nurse, teacher, police officer booking, bilingual patient support caseworker)? Give summary @ -dr chan who will admit pt Was smoking cessation discussed for >3mins.? @ -No Was critical care preformed (if so, how long)? @ -no Were there social determinants of health that impacted care today? How? (Homelessness, low income, unemployed, alcoholism, drug addiction, transportation, low edu. Level, literacy, decrease access to med. care, detention, rehab)? @ -No Was there de-escalation of care discussed even if they declined (Discuss DNR or withdrawal of care, Hospice)? DNR status @ -No What co-morbidities impacted this encounter? (DM, HTN, Smoking, COPD, CAD, Cancer, CVA, ARF, Chemo, Hep., AIDS, mental health diagnosis, sleep apnea, morbid obesity)? @ -dementia, boh Was patient admitted / discharged? Hospital course, mention meds given and route, prescriptions, significant lab abnormalities, going to OR and other pertinent info. @ -Upon arrival patient is placed in room 2. Thorough history and physical exam was performed. Last known well was Tuesday. EKG is performed here patient hooked to continuous pulse ox and cardiac monitoring. Lab studies are conducted which demonstrates a markedly elevated creatinine at 5.9. Johnson is placed and patient does put out 1100 mL of urine. Urinalysis demonstrates UTI. Blood cultures obtained and patient is given Rocephin 1 g. troponin is elevated likely due to kidney injury. CT the head is negative for acute process. Patient will be admitted for for nephrology consultation. Spoke with Dr. Chan for admission. Undiagnosed new problem with uncertain prognosis? @ -yes Drug Therapy requiring intensive monitoring for toxicity (Heparin, Nitro, Insulin, Cardizem)? @ -No Were any procedures done? @ -yes, johnson insertion Diagnosis/symptom? @ -acute kidney injury, acute uti, acute encephalopathy, urinary retention Acute, or Chronic, or Acute on Chronic? @ -acute Uncomplicated (without systemic symptoms) or Complicated (systemic symptoms)? @ -complicated Side effects of treatment? @ -allergic reaction Exacerbation, Progression, or Severe Exacerbation? @ -No Poses a threat to life or bodily function? How? (Chest pain, USA, MA, pneumonia, PE, COPD, DKA, ARF, appy, cholecystitis, CVA, Diverticulitis, Homicidal, Suicidal, threat to staff... and all critical care pts) @ -yes, patient in severe kidney failure - Lab Data Result diagrams: 11/10/22 06:56 11/13/22 07:00 Lab Results 11/07/22 11/07/22 11/07/22 Range/Units 10:17 10:17 10:17 WBC 14.9 H (3.8-10.6) k/uL RBC 4.14 L (4.30-5.90) m/uL Hgb 13.3 (13.0-17.5) gm/dL Hct 39.8 (39.0-53.0) % MCV 96.1 (80.0-100.0) fL MCH 32.2 (25.0-35.0) pg MCHC 33.4 (31.0-37.0) g/dL RDW 13.9 (11.5-15.5) % Plt Count 161 (150-450) k/uL MPV 7.8 Neutrophils % 89 % Lymphocytes % 4 % Monocytes % 7 % Eosinophils % 0 % Basophils % 0 % Neutrophils # 13.2 H (1.3-7.7) k/uL Lymphocytes # 0.5 L (1.0-4.8) k/uL Monocytes # 1.1 H (0-1.0) k/uL Eosinophils # 0.0 (0-0.7) k/uL Basophils # 0.0 (0-0.2) k/uL PT 11.7 (9.0-12.0) sec INR 1.1 (<1.2) APTT 24.3 (22.0-30.0) sec Sodium (137-145) mmol/L Potassium (3.5-5.1) mmol/L Chloride (98-107) mmol/L Carbon Dioxide (22-30) mmol/L Anion Gap mmol/L BUN (9-20) mg/dL Creatinine (0.66-1.25) mg/dL Est GFR (CKD-EPI)AfAm (>60 ml/min/1.73 sqM) Est GFR (CKD-EPI)NonAf (>60 ml/min/1.73 sqM) Glucose (74-99) mg/dL POC Glucose (mg/dL) (70-110) mg/dL POC Glu Decision Analyst ID Lactic Ac Sepsis Rflx Plasma Lactic Acid Babar (0.7-2.0) mmol/L Calcium (8.4-10.2) mg/dL Total Bilirubin (0.2-1.3) mg/dL AST (17-59) U/L ALT (4-49) U/L Alkaline Phosphatase (38-126) U/L Troponin I (0.000-0.034) ng/mL Total Protein (6.3-8.2) g/dL Albumin (3.5-5.0) g/dL Urine Color Light Red Urine Appearance Turbid (Clear) Urine pH 6.0 (5.0-8.0) Ur Specific [place] 1.011 (1.001-1.035) Urine Protein 3+ H (Negative) Urine Glucose (UA) Negative (Negative) Urine Ketones Negative (Negative) Urine Blood Moderate H (Negative) Urine Nitrite Negative (Negative) Urine Bilirubin Negative (Negative) Urine Urobilinogen <2.0 (<2.0) mg/dL Ur Leukocyte Esterase Large H (Negative) Urine RBC >182 H (0-5) /hpf Urine WBC >182 H (0-5) /hpf Urine WBC Clumps Many H (None) /hpf Influenza Type A (PCR) (Not Detectd) Influenza Type B (PCR) (Not Detectd) RSV (PCR) (Not Detectd) SARS-CoV-2 (PCR) (Not Detectd) 11/07/22 11/07/22 11/07/22 Range/Units 10:17 10:17 10:17 WBC (3.8-10.6) k/uL RBC (4.30-5.90) m/uL Hgb (13.0-17.5) gm/dL Hct (39.0-53.0) % MCV (80.0-100.0) fL MCH (25.0-35.0) pg MCHC (31.0-37.0) g/dL RDW (11.5-15.5) % Plt Count (150-450) k/uL MPV Neutrophils % % Lymphocytes % % Monocytes % % Eosinophils % % Basophils % % Neutrophils # (1.3-7.7) k/uL Lymphocytes # (1.0-4.8) k/uL Monocytes # (0-1.0) k/uL Eosinophils # (0-0.7) k/uL Basophils # (0-0.2) k/uL PT (9.0-12.0) sec INR (<1.2) APTT (22.0-30.0) sec Sodium 138 (137-145) mmol/L Potassium 4.8 (3.5-5.1) mmol/L Chloride 100 (98-107) mmol/L Carbon Dioxide 24 (22-30) mmol/L Anion Gap 14 mmol/L BUN 61 H (9-20) mg/dL Creatinine 5.95 H (0.66-1.25) mg/dL Est GFR (CKD-EPI)AfAm 9 (>60 ml/min/1.73 sqM) Est GFR (CKD-EPI)NonAf 8 (>60 ml/min/1.73 sqM) Glucose 204 H (74-99) mg/dL POC Glucose (mg/dL) (70-110) mg/dL POC Glu Decision Analyst ID Lactic Ac Sepsis Rflx Plasma Lactic Acid Babar (0.7-2.0) mmol/L Calcium 8.8 (8.4-10.2) mg/dL Total Bilirubin 2.8 H (0.2-1.3) mg/dL AST 29 (17-59) U/L ALT 24 (4-49) U/L Alkaline Phosphatase 62 (38-126) U/L Troponin I 0.060 H* (0.000-0.034) ng/mL Total Protein 7.2 (6.3-8.2) g/dL Albumin 4.4 (3.5-5.0) g/dL Urine Color Urine Appearance (Clear) Urine pH (5.0-8.0) Ur Specific [place] (1.001-1.035) Urine Protein (Negative) Urine Glucose (UA) (Negative) Urine Ketones (Negative) Urine Blood (Negative) Urine Nitrite (Negative) Urine Bilirubin (Negative) Urine Urobilinogen (<2.0) mg/dL Ur Leukocyte Esterase (Negative) Urine RBC (0-5) /hpf Urine WBC (0-5) /hpf Urine WBC Clumps (None) /hpf Influenza Type A (PCR) Not Detected (Not Detectd) Influenza Type B (PCR) Not Detected (Not Detectd) RSV (PCR) Not Detected (Not Detectd) SARS-CoV-2 (PCR) Not Detected (Not Detectd) 11/07/22 11/07/22 11/07/22 Range/Units 10:19 10:22 11:04 WBC (3.8-10.6) k/uL RBC (4.30-5.90) m/uL Hgb (13.0-17.5) gm/dL Hct (39.0-53.0) % MCV (80.0-100.0) fL MCH (25.0-35.0) pg MCHC (31.0-37.0) g/dL RDW (11.5-15.5) % Plt Count (150-450) k/uL MPV Neutrophils % % Lymphocytes % % Monocytes % % Eosinophils % % Basophils % % Neutrophils # (1.3-7.7) k/uL Lymphocytes # (1.0-4.8) k/uL Monocytes # (0-1.0) k/uL Eosinophils # (0-0.7) k/uL Basophils # (0-0.2) k/uL PT (9.0-12.0) sec INR (<1.2) APTT (22.0-30.0) sec Sodium (137-145) mmol/L Potassium (3.5-5.1) mmol/L Chloride (98-107) mmol/L Carbon Dioxide (22-30) mmol/L Anion Gap mmol/L BUN (9-20) mg/dL Creatinine (0.66-1.25) mg/dL Est GFR (CKD-EPI)AfAm (>60 ml/min/1.73 sqM) Est GFR (CKD-EPI)NonAf (>60 ml/min/1.73 sqM) Glucose (74-99) mg/dL POC Glucose (mg/dL) 205 H (70-110) mg/dL POC Glu Decision Analyst ID Manju Lisa Lactic Ac Sepsis Rflx Y Plasma Lactic Acid Babar 2.1 H* (0.7-2.0) mmol/L Calcium (8.4-10.2) mg/dL Total Bilirubin (0.2-1.3) mg/dL AST (17-59) U/L ALT (4-49) U/L Alkaline Phosphatase (38-126) U/L Troponin I (0.000-0.034) ng/mL Total Protein (6.3-8.2) g/dL Albumin (3.5-5.0) g/dL Urine Color Urine Appearance (Clear) Urine pH (5.0-8.0) Ur Specific [place] (1.001-1.035) Urine Protein (Negative) Urine Glucose (UA) (Negative) Urine Ketones (Negative) Urine Blood (Negative) Urine Nitrite (Negative) Urine Bilirubin (Negative) Urine Urobilinogen (<2.0) mg/dL Ur Leukocyte Esterase (Negative) Urine RBC (0-5) /hpf Urine WBC (0-5) /hpf Urine WBC Clumps (None) /hpf Influenza Type A (PCR) (Not Detectd) Influenza Type B (PCR) (Not Detectd) RSV (PCR) (Not Detectd) SARS-CoV-2 (PCR) (Not Detectd) Disposition Clinical Impression: Acute encephalopathy, Acute kidney failure, Urinary retention, Pyrexia Disposition: ADMITTED IP TO THIS HOSP Condition: Stable Is patient prescribed a controlled substance at d/c from ED?: No Time of Disposition: 11:51 Decision to Admit Reason: Admit from EC Decision Date: 11/07/22 Decision Time: 12:01
[2022-11-07] MEDS ORDERED: NALOXONE 0.4 MG/ML 1 ML VIAL IV PRN (12:05)
[2022-11-07] MEDS: SODIUM CHLORIDE 0.9% 1,000 ML IV SCH (12:22)
--- NOTE | 2022-11-07 14:40 | P.HPIM ---
History of Present Illness H&P Date: 11/07/22 History of present illness; patient is a 82 year old gentleman with past medical history significant for CVA, dementia presented to the ER because of altered mental status. Most of the history is taken from the EMR and from the patient's significant other at the bedside. According to her patient has been acting did not his usual self since yesterday, patient has been very lethargic and has been dosing throughout the day. There was no complain of any nausea or vomiting. No complaint of chest pain or shortness of breath. This morning he became more confused so she called EMS and brought him to the ER. Initial vital signs in the ER showed patient to have a temperature of 102.1. Initial lab work done in the ER showed white count of 14.9, hemoglobin 13.3, sodium 138, potassium 4.8, BUN 61, creatinine 5.95 CT brain negative for acute intracranial process Chest x-ray showed no acute cardiopulmonary process REVIEW OF SYSTEMS: Review of systems cannot be obtained as patient is confused at this time PHYSICAL EXAMINATION: GENERAL: The patient is alert to self, baseline dementia, not in any acute distress. Well developed, well nourished. HEENT: Pupils are round and equally reacting to light. EOMI. No scleral icterus. No conjunctival pallor. Normocephalic, atraumatic. No pharyngeal erythema. No thyromegaly. CARDIOVASCULAR: S1 and S2 present. No murmurs, rubs, or gallops. PULMONARY: Chest is clear to auscultation, no wheezing or crackles. ABDOMEN: Soft, nontender, nondistended, normoactive bowel sounds. No palpable organomegaly. MUSCULOSKELETAL: No joint swelling or deformity. EXTREMITIES: No cyanosis, clubbing, or pedal edema. NEUROLOGICAL: Gross neurological examination did not reveal any focal deficits. SKIN: No rashes. Assessment and plan Acute kidney injury Acute metabolic encephalopathy UTI History of dementia Hypertension Plan; Monitor vital signs Monitor CBC Strict I's and O's Daily weights Continue IV fluids Continue IV Rocephin Follow-up on urine culture Nephrology consulted urology consulted Past Medical History Past Medical History: Atrial Fibrillation, CVA/TIA, Dementia, Hearing Disorder / Deafness, Hyperlipidemia, Memory Impairment, Prostate Disorder, Renal Disease, Sleep Apnea/CPAP/BIPAP Additional Past Medical History / Comment(s): tia 2018 ?, cva 2019, urinary incontinence, glaucoma History of Any Multi-Drug Resistant Organisms: None Reported Past Surgical History: Hernia Repair, Prostate Surgery Additional Past Surgical History / Comment(s): bladder stimulator in 2021, States thinks he had a TURP. Past Anesthesia/Blood Transfusion Reactions: No Reported Reaction Past Psychological History: No Psychological Hx Reported Smoking Status: Never smoker Past Alcohol Use History: None Reported Past Drug Use History: None Reported - Past Family History Mother Family Medical History: Cancer Father Family Medical History: Myocardial Infarction (MS) Sister(s) Family Medical History: CVA/TIA Medications and Allergies Home Medications Medication Instructions Recorded Confirmed Type Atorvastatin Calcium [Lipitor] 20 mg PO DAILY 05/06/20 06/24/22 History Lisinopril-Hctz 20-25 mg 1 tab PO DAILY 05/06/20 06/24/22 History [Zestoretic 20-25] Timolol 0.5% Ophth Soln [Timoptic 1 drop RIGHT EYE TID 05/06/20 06/24/22 History 0.5% Ophth Soln] Apixaban [Eliquis] 5 mg PO BID #60 tab 05/08/20 06/24/22 Rx Ascorbic Acid [Vitamin C] 500 mg PO DAILY tab 05/08/20 06/24/22 Rx Cholecalciferol [Vitamin D3 (25 1,000 unit PO DAILY #30 tablet 05/08/20 06/24/22 Rx Mcg = 1000 Iu)] Zinc Sulfate [Orazinc] 220 mg PO DAILY #30 capsule 05/08/20 06/24/22 Rx Donepezil [Aricept] 5 mg PO DAILY 06/23/22 06/24/22 History Escitalopram [Lexapro] 10 mg PO DAILY 06/23/22 06/24/22 History Allergies Allergy/AdvReac Type Severity Reaction Status Date / Time No Known Allergies Allergy Verified 11/07/22 10:01 Physical Exam Vitals: Vital Signs Temp Pulse Pulse Resp BP BP Pulse Ox 11/07/22 13:50 97.4 F L 94 18 159/71 94 L 11/07/22 13:21 82 18 172/80 96 11/07/22 11:45 98.6 F 11/07/22 09:57 102.1 F H 86 20 179/83 97 Intake and Output 11/06/22 11/07/22 11/07/22 22:59 06:59 14:59 Output Total 1300 Balance -1300 Output: Urine 1300 Other: Voiding Method Indwelling Catheter Weight 93.894 kg Results CBC & Chem 7: 11/07/22 10:17 11/07/22 10:17 Labs: Abnormal Lab Results - Last 24 Hours (Table) 11/07/22 11/07/22 11/07/22 Range/Units 10:17 10:17 10:17 WBC 14.9 H (3.8-10.6) k/uL RBC 4.14 L (4.30-5.90) m/uL Neutrophils # 13.2 H (1.3-7.7) k/uL Lymphocytes # 0.5 L (1.0-4.8) k/uL Monocytes # 1.1 H (0-1.0) k/uL BUN 61 H (9-20) mg/dL Creatinine 5.95 H (0.66-1.25) mg/dL Glucose 204 H (74-99) mg/dL POC Glucose (mg/dL) (70-110) mg/dL Plasma Lactic Acid Babar (0.7-2.0) mmol/L Total Bilirubin 2.8 H (0.2-1.3) mg/dL Troponin I (0.000-0.034) ng/mL Urine Protein 3+ H (Negative) Urine Blood Moderate H (Negative) Ur Leukocyte Esterase Large H (Negative) Urine RBC >182 H (0-5) /hpf Urine WBC >182 H (0-5) /hpf Urine WBC Clumps Many H (None) /hpf 11/07/22 11/07/22 11/07/22 Range/Units 10:17 10:19 10:22 WBC (3.8-10.6) k/uL RBC (4.30-5.90) m/uL Neutrophils # (1.3-7.7) k/uL Lymphocytes # (1.0-4.8) k/uL Monocytes # (0-1.0) k/uL BUN (9-20) mg/dL Creatinine (0.66-1.25) mg/dL Glucose (74-99) mg/dL POC Glucose (mg/dL) 205 H (70-110) mg/dL Plasma Lactic Acid Babar 2.1 H* (0.7-2.0) mmol/L Total Bilirubin (0.2-1.3) mg/dL Troponin I 0.060 H* (0.000-0.034) ng/mL Urine Protein (Negative) Urine Blood (Negative) Ur Leukocyte Esterase (Negative) Urine RBC (0-5) /hpf Urine WBC (0-5) /hpf Urine WBC Clumps (None) /hpf Thrombosis Risk Factor Assmnt - Choose All That Apply Each Risk Factor Represents 3 Points: Age 75 years or older Thrombosis Risk Factor Assessment Total Risk Factor Score: 3 Thrombosis Risk Factor Assessment Level: Moderate Risk
[2022-11-07] MEDS: TIMOLOL 0.5% OPHTH DROPS 5 ML BTL RIGHT EYE SCH ×2 (18:16→20:10)
[2022-11-07] MEDS ORDERED: DEXTROSE 50% SYRINGE 50 ML IVP PRN ×2 (18:28)
[2022-11-07] MEDS ORDERED: ONDANSETRON 4 MG/2 ML VIAL IVP PRN (18:30)
--- NOTE | 2022-11-07 19:31 | US ---
EXAMINATION TYPE: US kidneys/renal and bladder DATE OF EXAM: 11/07/2022 COMPARISON: NONE CLINICAL INDICATION: Male, 82 years old with history of diana; DIANA EXAM MEASUREMENTS: Right Kidney: 10.0 x 3.9 x 5.2 cm Left Kidney: 10.3 x 5.9 x 4.0 cm Right Kidney: No hydronephrosis or masses seen. Normal cortical-medullary differentiation. Left Kidney: No hydronephrosis or masses seen. Normal cortical medullary differentiation. Bladder: Collapsed around Lama catheter. IMPRESSION: No evidence for hydronephrosis.
[2022-11-07] MEDS: APIXABAN 2.5 MG TABLET PO SCH (20:02)
[2022-11-07] MEDS: ATORVASTATIN 20 MG TAB PO SCH (20:02)
[2022-11-07] MEDS: ACETAMINOPHEN TAB 325 MG TAB PO PRN (20:03)
[2022-11-07] MEDS: amLODIPine 5 MG TAB PO SCH (20:03)
[2022-11-07] MEDS: MEMANTINE 10 MG TAB PO SCH (20:25)
[2022-11-07] MEDS: DONEPEZIL 5 MG TAB PO SCH (20:25)
[2022-11-07 20:37] LABS: Glucose,Whole Blood 187 mg/dL (70-110)
[2022-11-07] MEDS: INSULIN ASPART (NovoLOG) 100 UNIT/ML VIAL SQ SCH (20:59)
[2022-11-07] MEDS ORDERED: APIXABAN 5 MG TAB PO SCH (21:00)
[2022-11-08] MEDS: SODIUM CHLORIDE 0.9% 1,000 ML IV SCH ×2 (03:25→16:08)
[2022-11-08 06:38] LABS: Basophils % (A) 0 %; Eosinophils % (A) 0 %; HCT 35.8 % (39.0-53.0); HGB 11.8 gm/dL (13.0-17.5); Lymphocytes # (A) 0.8 k/uL (1.0-4.8); Lymphocytes % (A) 7 %; MCH 32.6 pg (25.0-35.0); MCHC 33.1 g/dL (31.0-37.0); MCV 98.5 fL (80.0-100.0); Mean Platelet Volume 8.2; Monocytes # (A) 0.8 k/uL (0-1.0); Monocytes % (A) 7 %; Neutrophils # (A) 9.4 k/uL (1.3-7.7); Neutrophils % (A) 84 %; Platelet Count 126 k/uL (150-450); RBC 3.64 m/uL (4.30-5.90); RDW 13.7 % (11.5-15.5); WBC 11.2 k/uL (3.8-10.6)
[2022-11-08 07:16] LABS: Glucose,Whole Blood 159 mg/dL (70-110)
[2022-11-08 07:58] LABS: African American GFR (CKD) 31 (>60 ml/min/1.73 sqM); Anion Gap 9 mmol/L; Blood Urea Nitrogen 50 mg/dL (9-20); Carbon Dioxide 29 mmol/L (22-30); Chloride 103 mmol/L (98-107); Glucose 169 mg/dL (74-99); Non-African American GFR(CKD) 27 (>60 ml/min/1.73 sqM); Potassium 3.6 mmol/L (3.5-5.1); Sodium 141 mmol/L (137-145)
[2022-11-08] MEDS: APIXABAN 2.5 MG TABLET PO SCH ×2 (09:42→21:38)
[2022-11-08] MEDS: amLODIPine 5 MG TAB PO SCH (09:42)
[2022-11-08] MEDS: ACETAMINOPHEN TAB 325 MG TAB PO PRN ×2 (09:42→22:34)
[2022-11-08] MEDS: FAMOTIDINE 20 MG/2 ML VIAL IV SCH (09:43)
[2022-11-08] MEDS: INSULIN ASPART (NovoLOG) 100 UNIT/ML VIAL SQ SCH ×4 (09:44→21:41)
[2022-11-08] MEDS: ESCITALOPRAM 10 MG TAB PO SCH (09:55)
[2022-11-08] MEDS: MEMANTINE 10 MG TAB PO SCH ×2 (09:56→21:38)
[2022-11-08] MEDS: DONEPEZIL 5 MG TAB PO SCH ×2 (09:56→21:38)
[2022-11-08] MEDS: TIMOLOL 0.5% OPHTH DROPS 5 ML BTL RIGHT EYE SCH ×3 (09:56→21:39)
[2022-11-08 11:09] LABS: Glucose,Whole Blood 247 mg/dL (70-110)
--- NOTE | 2022-11-08 13:31 | P.NPCON ---
History of Present Illness - Reason for Consult acute renal failure - History of Present Illness Patient is an 82-year-old male with history of CVA, dementia who was brought in by the family due to increased confusion and fatigue. Patient was noted to have a temperature of 10 2F and a serum creatinine of 5.9. Significant urine retention of about 1000 mL of urine was noted and a Lama catheter has been placed. He does have a history of BPH for which patient has recently been evaluated by Dr. garcia from urology Serum creatinine improved to 2.1 today. Blood pressure has not been low in fact it is on the higher side. UA shows more than 182 WBCs and patient is started on IV fluids and IV antibiotics. Previous creatinine 0.7 on 05/08/2020. Patient was maintained on ALFREDO inhibitor as prior to admission, currently on hold No history of use of NSAIDs Review of Systems As per HPI Past Medical History Past Medical History: Atrial Fibrillation, CVA/TIA, Dementia, Hearing Disorder / Deafness, Hyperlipidemia, Memory Impairment, Prostate Disorder, Renal Disease, Sleep Apnea/CPAP/BIPAP Additional Past Medical History / Comment(s): tia 2018 ?, cva 2019, urinary incontinence, glaucoma History of Any Multi-Drug Resistant Organisms: None Reported Past Surgical History: Hernia Repair, Prostate Surgery Additional Past Surgical History / Comment(s): bladder stimulator in 2021, States thinks he had a TURP. Past Anesthesia/Blood Transfusion Reactions: No Reported Reaction Past Psychological History: No Psychological Hx Reported Smoking Status: Never smoker Past Alcohol Use History: None Reported Past Drug Use History: None Reported - Past Family History Mother Family Medical History: Cancer Father Family Medical History: Myocardial Infarction ([place]) Sister(s) Family Medical History: CVA/TIA Medications and Allergies Home Medications Medication Instructions Recorded Confirmed Type Atorvastatin Calcium [Lipitor] 20 mg PO HS 05/06/20 11/07/22 History Lisinopril-Hctz 20-25 mg 1 tab PO DAILY 05/06/20 11/07/22 History [Zestoretic 20-25] Timolol 0.5% Ophth Soln [Timoptic 1 drop RIGHT EYE TID 05/06/20 11/07/22 History 0.5% Ophth Soln] Apixaban [Eliquis] 5 mg PO BID #60 tab 05/08/20 11/07/22 Rx Donepezil [Aricept] 5 mg PO BID 06/23/22 11/07/22 History Escitalopram [Lexapro] 10 mg PO DAILY 06/23/22 11/07/22 History Ketoconazole 2% Cream [Nizoral 2%] 1 applic TOPICAL BID 11/07/22 11/07/22 History Memantine [Namenda] 10 mg PO BID 11/07/22 11/07/22 History Mirabegron [Myrbetriq] 50 mg PO DAILY 11/07/22 11/07/22 History oxyBUTYnin chloride [oxyBUTYnin 5 mg PO DAILY 11/07/22 11/07/22 History chloride ER] Allergies Allergy/AdvReac Type Severity Reaction Status Date / Time No Known Allergies Allergy Verified 11/07/22 15:11 Physical Exam Vitals: Vital Signs Temp Pulse Pulse Resp BP Pulse Ox 11/08/22 10:14 101.9 F H 11/08/22 08:00 15 11/08/22 07:20 100 F H 81 15 158/72 98 11/08/22 02:00 99.7 F H 76 16 163/65 95 11/08/22 00:09 99.3 F 11/07/22 20:00 18 11/07/22 19:25 103.1 F H 87 18 157/65 97 11/07/22 15:28 99 F 11/07/22 13:50 97.4 F L 94 18 159/71 94 L Intake and Output 11/07/22 11/08/22 11/08/22 22:59 06:59 14:59 Output Total 750 3300 Balance -750 -3300 Output: Urine 750 3300 Uretheral (Lama) 1500 Other: Voiding Method Indwelling Catheter Indwelling Catheter Patient is awake, comfortable, no acute distress Examination of the heart S1 and S2 Examination of the lungs bilateral breath sounds are heard Abdomen is soft nontender Examination of lower extremities shows no significant edema ENTRY LEVEL ACCOUNT MANAGER exam shows patient is moving all 4 extremities Results - Lab Results Most recent lab results Calcium 8.0 mg/dL (8.4-10.2) L 11/08/22 06:04 11/08/22 06:04 11/08/22 06:04 Assessment and Plan Assessment: 1. Acute kidney injury secondary to urine retention and underlying infection. Nonoliguric and improving. 2. Severe urine retention with underlying history of BPH currently with indwelling Lama catheter. 1300 ML of urine noted on initial Lama placement 3. UTI started on antibiotics, urine culture is pending 4. Hypertension with elevated blood pressure 5. Dyslipidemia 6. Chronic A. fib maintained on anticoagulation 7. History of dementia with previous CVA/TIA Plan: Continue IV fluids Continue Lama catheter Check ultrasound of the kidneys Consult urology Repeat labs in a.m. May resume Alfredo inhibitors tomorrow as blood pressure is elevated. Thank you for the consultation. We will continue to follow the patient with you during her hospitalization
--- NOTE | 2022-11-08 13:54 | P.PN ---
Subjective Progress Note Date: 11/08/22 This is a pleasant 82-year-old gentleman with baseline dementia brought in by family secondary to increased fatigue and confusion .Lama catheter placed for urinary retention .T-max 101.9, WBC decreased to 11.2, maintained on ceftriaxone IV. Continues on gentle IV fluid hydration with renal function improving, BUN 50, creatinine 2.19, bicarb 29. Lama catheter with significant sediment. Positive chills and shivering. Denies chest pain, palpitations or shortness of breath. Objective - Vital Signs Vital signs: Vital Signs Temp 101.9 F H 11/08/22 10:14 Pulse 81 11/08/22 07:20 Resp 15 11/08/22 08:00 BP 158/72 11/08/22 07:20 Pulse Ox 98 11/08/22 07:20 FiO2 Intake & Output 11/07/22 11/08/22 11/08/22 18:59 06:59 18:59 Output Total 20490 Balance -2049 -3299 Weight 93.894 kg Output: Urine 2049 3299 Uretheral (Lama) 1500 Other: Voiding Method Indwelling Catheter Indwelling Catheter Indwelling Catheter - Exam PHYSICAL EXAM: VITAL SIGNS: As above GENERAL: Sitting up in bed, shivering alert and oriented to person, place, baseline dementia HEENT: Conjunctivae normal. eyes normal. NECK: Supple, No JVD. CARDIOVASCULAR: S1, S2 regular.. No murmur RESPIRATION: Breath sounds diminished in the bases. No rhonchi or crackles. ABDOMEN: Soft, nontender . No guarding. no masses palpable. Bowel sounds heard. LEGS: No edema. no swelling NERVOUS SYSTEM: Cranial N 2-12 grossly normal. No focal deficits. Skin: Warm and dry, no rash - Labs CBC & Chem 7: 11/08/22 06:04 11/08/22 06:04 Labs: Abnormal Lab Results - Last 24 Hours (Table) 11/07/22 11/08/22 11/08/22 Range/Units 20:35 06:04 06:04 WBC 11.2 H (3.8-10.6) k/uL RBC 3.64 L (4.30-5.90) m/uL Hgb 11.8 L (13.0-17.5) gm/dL Hct 35.8 L (39.0-53.0) % Plt Count 126 L (150-450) k/uL Neutrophils # 9.4 H (1.3-7.7) k/uL Lymphocytes # 0.8 L (1.0-4.8) k/uL BUN (9-20) mg/dL Creatinine (0.66-1.25) mg/dL Glucose (74-99) mg/dL POC Glucose (mg/dL) 187 H (70-110) mg/dL Hemoglobin A1c 6.7 H (<=6.0) % Calcium (8.4-10.2) mg/dL 11/08/22 11/08/22 11/08/22 Range/Units 06:04 07:15 11:08 WBC (3.8-10.6) k/uL RBC (4.30-5.90) m/uL Hgb (13.0-17.5) gm/dL Hct (39.0-53.0) % Plt Count (150-450) k/uL Neutrophils # (1.3-7.7) k/uL Lymphocytes # (1.0-4.8) k/uL BUN 50 H (9-20) mg/dL Creatinine 2.19 H (0.66-1.25) mg/dL Glucose 169 H (74-99) mg/dL POC Glucose (mg/dL) 159 H 247 H (70-110) mg/dL Hemoglobin A1c (<=6.0) % Calcium 8.0 L (8.4-10.2) mg/dL Assessment and Plan Assessment: Sepsis secondary to acute UTI related to urinary retention Acute renal failure secondary to the above Acute metabolic encephalopathy secondary to the above Urinary retention with history of BPH, Lama catheter placed History of underlying dementia Chronic A. fib History of CVA, TIA Plan: Continue on current medication regime ,monitoring and symptomatic treatment. Maintain IV fluid hydration, antibiotics of IV ceftriaxone. Urine and Blood cultures in progress. Renal ultrasound pending. Urology consult in place, recommendations pending. The impression and plan of care has been dictated as directed. : I performed a history and examination of this patient, discussed the same with the dictator. I agree with the dictator's note ,documented as a scribe. Any additional findings or plans will be noted.
--- NOTE | 2022-11-08 17:10 | P.GSCN ---
History of Present Illness Consult date: 11/08/22 Reason for Consult: Urinary retention Requesting physician: Alexei Chan History of present illness: The patient is an 82-year-old white male who previously sustained a CVA. He has dementia presented to the ER with confusion. He is admitted for evaluation of altered mental status. He has been found to be in urinary retention. A Lama catheter was placed and is currently draining well. The patient underwent sacral neuromodulation by Dr. Rosado June 2022 for overactive bladder symptoms. He did experience slight dysuria prior to admission. He denies hematuria but states that he did pass a clot 1-2 weeks ago. His PSA level was 16.80 in July 2022. Review of Systems - Constitutional Reports chills, Reports fever - Cardiovascular Denies chest pain - Respiratory Denies dyspnea Past Medical History Past Medical History: Atrial Fibrillation, CVA/TIA, Dementia, Hearing Disorder / Deafness, Hyperlipidemia, Memory Impairment, Prostate Disorder, Renal Disease, Sleep Apnea/CPAP/BIPAP Additional Past Medical History / Comment(s): tia 2017 ?, cva 2019, urinary incontinence, glaucoma History of Any Multi-Drug Resistant Organisms: None Reported Past Surgical History: Hernia Repair, Prostate Surgery Additional Past Surgical History / Comment(s): bladder stimulator in 2021, States thinks he had a TURP. Past Anesthesia/Blood Transfusion Reactions: No Reported Reaction Past Psychological History: No Psychological Hx Reported Smoking Status: Never smoker Past Alcohol Use History: None Reported Past Drug Use History: None Reported - Past Family History Mother Family Medical History: Cancer Father Family Medical History: Myocardial Infarction ([place]) Sister(s) Family Medical History: CVA/TIA Medications and Allergies Home Medications Medication Instructions Recorded Confirmed Type Atorvastatin Calcium [Lipitor] 20 mg PO HS 05/06/20 11/07/22 History Lisinopril-Hctz 20-25 mg 1 tab PO DAILY 05/06/20 11/07/22 History [Zestoretic 20-25] Timolol 0.5% Ophth Soln [Timoptic 1 drop RIGHT EYE TID 05/06/20 11/07/22 History 0.5% Ophth Soln] Apixaban [Eliquis] 5 mg PO BID #60 tab 05/08/20 11/07/22 Rx Donepezil [Aricept] 5 mg PO BID 06/23/22 11/07/22 History Escitalopram [Lexapro] 10 mg PO DAILY 06/23/22 11/07/22 History Ketoconazole 2% Cream [Nizoral 2%] 1 applic TOPICAL BID 11/07/22 11/07/22 History Memantine [Namenda] 10 mg PO BID 11/07/22 11/07/22 History Mirabegron [Myrbetriq] 50 mg PO DAILY 11/07/22 11/07/22 History oxyBUTYnin chloride [oxyBUTYnin 5 mg PO DAILY 11/07/22 11/07/22 History chloride ER] Allergies Allergy/AdvReac Type Severity Reaction Status Date / Time No Known Allergies Allergy Verified 11/07/22 15:11 Surgical - Exam Vital Signs Temp Pulse Resp BP Pulse Ox 102.1 F H 86 20 179/83 97 11/07/22 09:57 11/07/22 09:57 11/07/22 09:57 11/07/22 09:57 11/07/22 09:57 - General well developed, well nourished, no distress - Respiratory normal respiratory effort - Abdomen Abdomen: soft, non tender, no guarding, no rigid, no rebound - Genitourinary Normal phallus, normal urethral meatus. Lama catheter is draining clear yellow urine. Normal scrotum and testes. Small right hydrocele. - Psychiatric oriented to time, oriented to person, oriented to place, speech is normal, memory intact Results - Labs 11/08/22 06:04 11/08/22 06:04 Abnormal Lab Results - Last 24 Hours (Table) 11/07/22 11/07/22 11/07/22 Range/Units 10:17 10:17 10:17 WBC 14.9 H (3.8-10.6) k/uL RBC 4.14 L (4.30-5.90) m/uL Hgb (13.0-17.5) gm/dL Hct (39.0-53.0) % Plt Count (150-450) k/uL Neutrophils # 13.2 H (1.3-7.7) k/uL Lymphocytes # 0.5 L (1.0-4.8) k/uL Monocytes # 1.1 H (0-1.0) k/uL BUN 61 H (9-20) mg/dL Creatinine 5.95 H (0.66-1.25) mg/dL Glucose 204 H (74-99) mg/dL POC Glucose (mg/dL) (70-110) mg/dL Plasma Lactic Acid Babar (0.7-2.0) mmol/L Total Bilirubin 2.8 H (0.2-1.3) mg/dL Troponin I (0.000-0.034) ng/mL Urine Protein 3+ H (Negative) Urine Blood Moderate H (Negative) Ur Leukocyte Esterase Large H (Negative) Urine RBC >182 H (0-5) /hpf Urine WBC >182 H (0-5) /hpf Urine WBC Clumps Many H (None) /hpf 11/07/22 11/07/22 11/07/22 Range/Units 10:17 10:19 10:22 WBC (3.8-10.6) k/uL RBC (4.30-5.90) m/uL Hgb (13.0-17.5) gm/dL Hct (39.0-53.0) % Plt Count (150-450) k/uL Neutrophils # (1.3-7.7) k/uL Lymphocytes # (1.0-4.8) k/uL Monocytes # (0-1.0) k/uL BUN (9-20) mg/dL Creatinine (0.66-1.25) mg/dL Glucose (74-99) mg/dL POC Glucose (mg/dL) 205 H (70-110) mg/dL Plasma Lactic Acid Babar 2.1 H* (0.7-2.0) mmol/L Total Bilirubin (0.2-1.3) mg/dL Troponin I 0.060 H* (0.000-0.034) ng/mL Urine Protein (Negative) Urine Blood (Negative) Ur Leukocyte Esterase (Negative) Urine RBC (0-5) /hpf Urine WBC (0-5) /hpf Urine WBC Clumps (None) /hpf 11/07/22 11/08/22 11/08/22 Range/Units 20:35 06:04 07:15 WBC 11.2 H (3.8-10.6) k/uL RBC 3.64 L (4.30-5.90) m/uL Hgb 11.8 L (13.0-17.5) gm/dL Hct 35.8 L (39.0-53.0) % Plt Count 126 L (150-450) k/uL Neutrophils # 9.4 H (1.3-7.7) k/uL Lymphocytes # 0.8 L (1.0-4.8) k/uL Monocytes # (0-1.0) k/uL BUN (9-20) mg/dL Creatinine (0.66-1.25) mg/dL Glucose (74-99) mg/dL POC Glucose (mg/dL) 187 H 159 H (70-110) mg/dL Plasma Lactic Acid Babar (0.7-2.0) mmol/L Total Bilirubin (0.2-1.3) mg/dL Troponin I (0.000-0.034) ng/mL Urine Protein (Negative) Urine Blood (Negative) Ur Leukocyte Esterase (Negative) Urine RBC (0-5) /hpf Urine WBC (0-5) /hpf Urine WBC Clumps (None) /hpf Diabetes panel 11/07/22 Range/Units 10:17 Sodium 138 (137-145) mmol/L Potassium 4.8 (3.5-5.1) mmol/L Chloride 100 (98-107) mmol/L Carbon Dioxide 24 (22-30) mmol/L BUN 61 H (9-20) mg/dL Creatinine 5.95 H (0.66-1.25) mg/dL Glucose 204 H (74-99) mg/dL Calcium 8.8 (8.4-10.2) mg/dL AST 29 (17-59) U/L ALT 24 (4-49) U/L Alkaline Phosphatase 62 (38-126) U/L Total Protein 7.2 (6.3-8.2) g/dL Albumin 4.4 (3.5-5.0) g/dL Calcium panel 11/07/22 Range/Units 10:17 Calcium 8.8 (8.4-10.2) mg/dL Albumin 4.4 (3.5-5.0) g/dL Pituitary panel 11/07/22 Range/Units 10:17 Sodium 138 (137-145) mmol/L Potassium 4.8 (3.5-5.1) mmol/L Chloride 100 (98-107) mmol/L Carbon Dioxide 24 (22-30) mmol/L BUN 61 H (9-20) mg/dL Creatinine 5.95 H (0.66-1.25) mg/dL Glucose 204 H (74-99) mg/dL Calcium 8.8 (8.4-10.2) mg/dL Adrenal panel 11/07/22 Range/Units 10:17 Sodium 138 (137-145) mmol/L Potassium 4.8 (3.5-5.1) mmol/L Chloride 100 (98-107) mmol/L Carbon Dioxide 24 (22-30) mmol/L BUN 61 H (9-20) mg/dL Creatinine 5.95 H (0.66-1.25) mg/dL Glucose 204 H (74-99) mg/dL Calcium 8.8 (8.4-10.2) mg/dL Total Bilirubin 2.8 H (0.2-1.3) mg/dL AST 29 (17-59) U/L ALT 24 (4-49) U/L Alkaline Phosphatase 62 (38-126) U/L Total Protein 7.2 (6.3-8.2) g/dL Albumin 4.4 (3.5-5.0) g/dL - Imaging US - kidney/bladder: report reviewed Assessment and Plan (1) Urinary retention Current Visit: Yes Status: Acute Code(s): R33.9 - RETENTION OF URINE, UNSPECIFIED SNOMED Code(s): 456720207 (2) UTI (urinary tract infection) Current Visit: Yes Status: Acute Code(s): N39.0 - URINARY TRACT INFECTION, SITE NOT SPECIFIED SNOMED Code(s): 48531538 Plan: Continue Rocephin, pending urine and blood cultures. It would be reasonable to remove the Lama catheter prior to discharge for a voiding trial. If the patient is unable to void, or empties his bladder incompletely, the Lama catheter should be replaced. In any case, he should follow up with Dr. Rosado as urinary retention may be the result of sacral neuromodulation. Time with Patient: Greater than 30
[2022-11-08 17:25] LABS: Glucose,Whole Blood 227 mg/dL (70-110)
[2022-11-08 20:36] LABS: Glucose,Whole Blood 246 mg/dL (70-110)
[2022-11-08] MEDS: polyethylene glycoL 3350 17 GM POWD.PACK PO SCH (21:37)
[2022-11-08] MEDS: ATORVASTATIN 20 MG TAB PO SCH (21:38)
[2022-11-08] MEDS: PIPERACILLIN-TAZOBACTAM 3.375 GM in SODIUM CHLORIDE 0.9% 100 ML IVPB SCH (21:38)
[2022-11-09] MEDS: PIPERACILLIN-TAZOBACTAM 3.375 GM in SODIUM CHLORIDE 0.9% 100 ML IVPB SCH ×3 (03:17→21:51)
[2022-11-09] MEDS: SODIUM CHLORIDE 0.9% 1,000 ML IV SCH (03:23)
[2022-11-09 07:40] LABS: Glucose,Whole Blood 168 mg/dL (70-110)
[2022-11-09] MEDS: polyethylene glycoL 3350 17 GM POWD.PACK PO SCH (08:54)
[2022-11-09] MEDS: INSULIN ASPART (NovoLOG) 100 UNIT/ML VIAL SQ SCH ×4 (08:54→21:52)
[2022-11-09] MEDS: APIXABAN 2.5 MG TABLET PO SCH ×2 (08:56→21:52)
[2022-11-09] MEDS: FAMOTIDINE 20 MG/2 ML VIAL IV SCH (08:56)
[2022-11-09] MEDS: amLODIPine 5 MG TAB PO SCH (08:56)
[2022-11-09] MEDS: ESCITALOPRAM 10 MG TAB PO SCH (08:57)
[2022-11-09] MEDS: DONEPEZIL 5 MG TAB PO SCH ×2 (08:57→22:16)
[2022-11-09] MEDS: MEMANTINE 10 MG TAB PO SCH ×2 (08:57→22:16)
[2022-11-09] MEDS: TIMOLOL 0.5% OPHTH DROPS 5 ML BTL RIGHT EYE SCH ×3 (08:58→21:51)
--- NOTE | 2022-11-09 09:05 | CT ---
EXAMINATION TYPE: CT brain wo con CT DLP: 1162.50 mGycm, Automated exposure control for dose reduction was used. DATE OF EXAM: 11/09/2022 8:29 AM COMPARISON: 11/07/2022, MRI 06/11/2020. CLINICAL INDICATION:Male, 82 years old with history of pt fall, Pt fell last night and hit head on ba throom door. LOC undetermined. TECHNIQUE: Brain: Axial CT images of the brain were obtained with coronal and sagittal reformats created and rev iewed. Contrast used: None. Oral contrast used: None. FINDINGS: Brain: Extra-axial spaces: No abnormal extra-axial fluid collections. Ventricular system: Dilatation in proportion to cerebral atrophy. Cerebral parenchyma: Cerebral atrophy. Mineralization of the basal ganglia. No acute intraparenchymal hemorrhage or mass effect. The schreiber-white junction is well differentiated. Cerebellum: Unremarkable. Mass effect: No evidence of midline shift. Intracranial vasculature: Atherosclerotic calcifications of the intracranial vessels. Soft tissues: Normal. Calvarium/osseous structures: No depressed skull fracture. Paranasal sinuses and mastoid air cells: Mild scattered paranasal sinus disease. Visualized orbits: Bilateral aphakia IMPRESSION: 1. No acute intracranial process. 2. Nonspecific white matter changes, likely secondary to chronic small vessel ischemic disease. 3. Generalized cerebral atrophy changes.
[2022-11-09] MEDS ORDERED: FUROSEMIDE 10 MG/ML 4 ML VIAL IV STA (11:59)
[2022-11-09 12:31] LABS: Glucose,Whole Blood 150 mg/dL (70-110)
--- NOTE | 2022-11-09 14:17 | P.PN ---
Subjective Patient is seen for follow-up for acute kidney injury mostly obstructive uropathy with significant urine retention. Currently improving with indwelling Lama catheter. Patient was maintained on IV fluids and developed shortness of breath today. Patient received IV Lasix. Fluids have been discontinued. Labs are pending from today Objective - Vital Signs Vital signs: Vital Signs Temp 99.7 F H 11/09/22 07:41 Pulse 83 11/09/22 07:41 Resp 18 11/09/22 07:41 BP 174/76 11/09/22 07:41 Pulse Ox 95 11/09/22 07:41 FiO2 Intake & Output 11/08/22 11/09/22 11/09/22 18:59 06:59 18:59 Intake Total 540 Output Total 1325 950 Balance -1325 -410 Intake: Oral 540 Output: Urine 1325 950 Other: Voiding Method Indwelling Catheter Indwelling Catheter Indwelling Catheter # Bowel Movements 1 1 - Exam Patient is awake, comfortable, no acute distress Examination of the heart S1 and S2 Examination of the lungs bilateral breath sounds are heard Abdomen is soft nontender Examination of lower extremities shows no significant edema CASH PROCESSING SPECIALIST exam shows patient is moving all 4 extremities - Labs CBC & Chem 7: 11/08/22 06:04 11/08/22 06:04 Labs: Abnormal Lab Results - Last 24 Hours (Table) 11/08/22 11/08/22 11/09/22 Range/Units 17:24 20:33 07:38 POC Glucose (mg/dL) 227 H 246 H 168 H (70-110) mg/dL 11/09/22 Range/Units 12:29 POC Glucose (mg/dL) 150 H (70-110) mg/dL Microbiology - Last 24 Hours (Table) 11/07/22 10:00 Blood Culture Gram Stain - Preliminary Blood 11/07/22 10:15 Blood Culture Gram Stain - Preliminary Blood Blood Culture - Preliminary Pseudomonas spec Assessment and Plan Assessment: 1. Acute kidney injury secondary to urine retention and underlying infection. Nonoliguric and improving. 2. Severe urine retention with underlying history of BPH currently with indwelling Lama catheter. 1300 ML of urine noted on initial Lama placement 3. UTI started on antibiotics, urine culture is pending 4. Hypertension with elevated blood pressure 5. Dyslipidemia 6. Chronic A. fib maintained on anticoagulation 7. History of dementia with previous CVA/TIA 8. Volume overload Plan: DC IV fluids Repeat labs in a.m. Continue with Lama catheter
[2022-11-09 17:25] LABS: Glucose,Whole Blood 236 mg/dL (70-110)
[2022-11-09 20:19] LABS: Glucose,Whole Blood 160 mg/dL (70-110)
[2022-11-09 20:56] LABS: Carbon Dioxide 25.6 mmol/L (21.6-31.8); Chloride 102 mmol/L (96-109); Glucose 133 mg/dL (70-110); Potassium 3.4 mmol/L (3.5-5.5); Sodium 142 mmol/L (135-145)
[2022-11-09] MEDS: ATORVASTATIN 20 MG TAB PO SCH (21:52)
--- NOTE | 2022-11-09 22:32 | P.CONS ---
History of Present Illness - Reason for Consult Consult date: 11/09/22 - History of Present Illness Patient is a 82-year-old male with a past medical history significant for CVA atrial fibrillation patient was brought into the hospital 2 days ago for evaluation of mental status changes apparently the patient was noticed to be very fatigued and not himself she thought the patient was having a stroke or with EMS was called and the patient was brought into the ER on arrival to the ER patient was noticed to be febrile with a temperature of 102.1 F no significant tachycardia blood pressure was stable and no hypoxemia patient did have vital of 14.9 with a left shift did have elevated BUN and creatinine though there was a normal lactic acid was elevated urine was positive patient is cleared for negative for any pneumonia abdominal bladder ultrasound no evidence of hydronephrosis patient was treated with Rocephin blood culture subsequently came back positive for Pseudomonas patient is antibiotic was switched over to Zosyn infectious was consulted for further management of antibiotic at this morning. On today's evaluation that is 11/09/2022 patient did have a low-grade fever of 99.7 this morning however the patient did spike 102.8 F last night, patient currently denies having any headache or URI symptoms no chest pain no shortness of breath no cough no abdominal pain patient did have some difficulty urination requiring Lama catheter placement and denies having any diarrhea Past Medical History Past Medical History: Atrial Fibrillation, CVA/TIA, Dementia, Hearing Disorder / Deafness, Hyperlipidemia, Memory Impairment, Prostate Disorder, Renal Disease, Sleep Apnea/CPAP/BIPAP Additional Past Medical History / Comment(s): tia 2018 ?, cva 2019, urinary incontinence, glaucoma History of Any Multi-Drug Resistant Organisms: None Reported Past Surgical History: Hernia Repair, Prostate Surgery Additional Past Surgical History / Comment(s): bladder stimulator in 2021, States thinks he had a TURP. Past Anesthesia/Blood Transfusion Reactions: No Reported Reaction Past Psychological History: No Psychological Hx Reported Smoking Status: Never smoker Past Alcohol Use History: None Reported Past Drug Use History: None Reported - Past Family History Mother Family Medical History: Cancer Father Family Medical History: Myocardial Infarction ([place]) Sister(s) Family Medical History: CVA/TIA Medications and Allergies Home Medications Medication Instructions Recorded Confirmed Type Atorvastatin Calcium [Lipitor] 20 mg PO HS 05/06/20 11/07/22 History Lisinopril-Hctz 20-25 mg 1 tab PO DAILY 05/06/20 11/07/22 History [Zestoretic 20-25] Timolol 0.5% Ophth Soln [Timoptic 1 drop RIGHT EYE TID 05/06/20 11/07/22 History 0.5% Ophth Soln] Apixaban [Eliquis] 5 mg PO BID #60 tab 05/08/20 11/07/22 Rx Donepezil [Aricept] 5 mg PO BID 06/23/22 11/07/22 History Escitalopram [Lexapro] 10 mg PO DAILY 06/23/22 11/07/22 History Ketoconazole 2% Cream [Nizoral 2%] 1 applic TOPICAL BID 11/07/22 11/07/22 History Memantine [Namenda] 10 mg PO BID 11/07/22 11/07/22 History Mirabegron [Myrbetriq] 50 mg PO DAILY 11/07/22 11/07/22 History oxyBUTYnin chloride [oxyBUTYnin 5 mg PO DAILY 11/07/22 11/07/22 History chloride ER] Allergies Allergy/AdvReac Type Severity Reaction Status Date / Time No Known Allergies Allergy Verified 11/07/22 15:11 Physical Exam Vitals: Vital Signs Temp Pulse Resp BP Pulse Ox 11/09/22 07:41 99.7 F H 83 18 174/76 95 11/09/22 01:17 99.0 F 66 17 153/70 95 11/08/22 19:40 102.8 F H 84 15 142/64 95 Intake and Output 11/08/22 11/09/22 11/09/22 22:59 06:59 14:59 Intake Total 540 Output Total 625 950 Balance -85 -950 Intake: Oral 540 Output: Urine 625 950 Other: Voiding Method Indwelling Catheter Indwelling Catheter # Bowel Movements 1 1 Results CBC & Chem 7: 11/08/22 06:04 11/09/22 05:56 Labs: Abnormal Lab Results - Last 24 Hours (Table) 11/08/22 11/08/22 11/09/22 Range/Units 17:24 20:33 07:38 POC Glucose (mg/dL) 227 H 246 H 168 H (70-110) mg/dL 11/09/22 Range/Units 12:29 POC Glucose (mg/dL) 150 H (70-110) mg/dL Microbiology - Last 24 Hours (Table) 11/07/22 10:00 Blood Culture Gram Stain - Preliminary Blood 11/07/22 10:15 Blood Culture Gram Stain - Preliminary Blood Blood Culture - Preliminary Pseudomonas spec Assessment and Plan Plan: 1patient presented hospital with sepsis in this patient who did have a fever elevated white count elevated lactic acid source likely complicated urinary tract infection, Patient with evidence of Pseudomonas bacteremia likely secondary urinary source ultrasound was negative for any hydronephrosis 2-blood cultures will be repeated document clearance of his bacteremia 3-patient to continue with the Zosyn however discharge antibiotic on the basis of final sensitivity Family at the bedside questions Answered We will follow on clinical condition and cultures to further adjust medication if needed Thank you for this consultation we will follow the patient along with you
[2022-11-10] MEDS: PIPERACILLIN-TAZOBACTAM 3.375 GM in SODIUM CHLORIDE 0.9% 100 ML IVPB SCH ×3 (05:27→20:44)
[2022-11-10 07:39] LABS: Basophils % (A) 0 %; Eosinophils # (A) 0.1 k/uL (0-0.7); Eosinophils % (A) 2 %; HCT 33.9 % (39.0-53.0); HGB 11.5 gm/dL (13.0-17.5); Lymphocytes % (A) 12 %; MCH 32.5 pg (25.0-35.0); MCHC 33.9 g/dL (31.0-37.0); MCV 95.9 fL (80.0-100.0); Mean Platelet Volume 8.6; Monocytes # (A) 0.7 k/uL (0-1.0); Monocytes % (A) 8 %; Neutrophils # (A) 6.3 k/uL (1.3-7.7); Neutrophils % (A) 76 %; Platelet Count 147 k/uL (150-450); RBC 3.54 m/uL (4.30-5.90); RDW 13.5 % (11.5-15.5); WBC 8.3 k/uL (3.8-10.6)
[2022-11-10 07:41] LABS: Glucose,Whole Blood 142 mg/dL (70-110)
[2022-11-10 07:44] LABS: ALT 45 U/L (4-49); AST 46 U/L (17-59); African American GFR (CKD) 81 (>60 ml/min/1.73 sqM); Albumin 2.8 g/dL (3.5-5.0); Albumin/Globulin Ratio 1.1; Alkaline Phosphatase 53 U/L (38-126); Anion Gap 8 mmol/L; Blood Urea Nitrogen 20 mg/dL (9-20); Calcium 7.2 mg/dL (8.4-10.2); Carbon Dioxide 32 mmol/L (22-30); Chloride 98 mmol/L (98-107); Globulin 2.5 g/dL; Glucose 135 mg/dL (74-99); Non-African American GFR(CKD) 70 (>60 ml/min/1.73 sqM); Potassium 2.8 mmol/L (3.5-5.1); Sodium 138 mmol/L (137-145); Total Bilirubin 1.2 mg/dL (0.2-1.3); Total Protein 5.3 g/dL (6.3-8.2)
[2022-11-10] MEDS: INSULIN ASPART (NovoLOG) 100 UNIT/ML VIAL SQ SCH ×4 (07:59→20:43)
[2022-11-10] MEDS ORDERED: POTASSIUM CHLORIDE ER 20 MEQ TAB.ER PO STA (08:17)
--- NOTE | 2022-11-10 08:18 | P.PN ---
Subjective Patient is seen in follow-up for acute kidney injury. Renal function continues to improve. Nonoliguric. No vomiting or diarrhea. Hemodynamically stable. Vital signs are stable. General: No acute distress. HEENT: Head exam is unremarkable. LUNGS: No audible rhonchi or wheezes. HEART: Rate and Rhythm are regular. ABDOMEN: Nontender. EXTREMITITES: No edema. Objective - Vital Signs Vital signs: Vital Signs Temp 98.2 F 11/10/22 07:07 Pulse 75 11/10/22 07:07 Resp 16 11/10/22 07:07 BP 142/63 11/10/22 07:07 Pulse Ox 96 11/10/22 07:07 FiO2 Intake & Output 11/09/22 11/10/22 11/10/22 18:59 06:59 18:59 Intake Total 100 540 Output Total 2900 1675 Balance -2800 -1135 Intake: Intake, IV Titration 100 Amount Piperacillin-Tazobactam 3 100 .375 gm In Sodium Chloride 0.9% 100 ml @ 25 mls/hr IVPB Q8H [facility] Rx#: [id number] Oral 540 Output: Urine 2900 1675 Other: Voiding Method Indwelling Catheter Indwelling Catheter # Bowel Movements 2 - Labs CBC & Chem 7: 11/10/22 06:56 11/10/22 06:28 Labs: Abnormal Lab Results - Last 24 Hours (Table) 11/09/22 11/09/22 11/09/22 Range/Units 05:56 12:29 17:23 RBC (4.30-5.90) m/uL Hgb (13.0-17.5) gm/dL Hct (39.0-53.0) % Plt Count (150-450) k/uL Potassium 3.4 L (3.5-5.5) mmol/L Carbon Dioxide (22-30) mmol/L Anion Gap 14.40 H (4.00-12.00) mmol/L BUN 28.0 H (9.0-27.0) mg/dL Est GFR (CKD-EPI) 50 L (>=60) Glucose 133 H (70-110) mg/dL POC Glucose (mg/dL) 150 H 236 H (70-110) mg/dL Calcium 8.0 L (8.7-10.3) mg/dL Total Protein (6.3-8.2) g/dL Albumin (3.5-5.0) g/dL 11/09/22 11/10/22 11/10/22 Range/Units 20:18 06:28 06:56 RBC 3.54 L (4.30-5.90) m/uL Hgb 11.5 L (13.0-17.5) gm/dL Hct 33.9 L (39.0-53.0) % Plt Count 147 L (150-450) k/uL Potassium 2.8 L (3.5-5.5) mmol/L Carbon Dioxide 32 H (22-30) mmol/L Anion Gap (4.00-12.00) mmol/L BUN (9.0-27.0) mg/dL Est GFR (CKD-EPI) (>=60) Glucose 135 H (70-110) mg/dL POC Glucose (mg/dL) 160 H (70-110) mg/dL Calcium 7.2 L (8.7-10.3) mg/dL Total Protein 5.3 L (6.3-8.2) g/dL Albumin 2.8 L (3.5-5.0) g/dL 11/10/22 Range/Units 07:38 RBC (4.30-5.90) m/uL Hgb (13.0-17.5) gm/dL Hct (39.0-53.0) % Plt Count (150-450) k/uL Potassium (3.5-5.5) mmol/L Carbon Dioxide (22-30) mmol/L Anion Gap (4.00-12.00) mmol/L BUN (9.0-27.0) mg/dL Est GFR (CKD-EPI) (>=60) Glucose (70-110) mg/dL POC Glucose (mg/dL) 142 H (70-110) mg/dL Calcium (8.7-10.3) mg/dL Total Protein (6.3-8.2) g/dL Albumin (3.5-5.0) g/dL Microbiology - Last 24 Hours (Table) 11/08/22 14:32 Urine Culture - Preliminary Urine,Catheterized Gram Neg Bacilli 11/07/22 10:00 Blood Culture Gram Stain - Preliminary Blood 11/07/22 10:15 Blood Culture Gram Stain - Preliminary Blood Blood Culture - Preliminary Pseudomonas spec Assessment and Plan Plan: Assessment: 1. Acute kidney injury injury to urinary retention. Renal function improving. Creatinine 1.0 today. 2. Urinary retention with history of BPH. Has Lama catheter. Urology following. 3. Pseudomonas bacteremia and gram-negative UTI on antibiotics. ID following. 4. Benign hypertension. Stable. 5. Mild volume overload status post IV Lasix yesterday. Off IV fluids. 6. Hypokalemia from diuresis. Plan: Encourage oral intake. Add Flomax. Avoid nephrotoxins. Replace potassium. Check magnesium level today as well.
[2022-11-10] MEDS: TIMOLOL 0.5% OPHTH DROPS 5 ML BTL RIGHT EYE SCH ×3 (09:50→20:44)
[2022-11-10] MEDS: amLODIPine 5 MG TAB PO SCH (09:52)
[2022-11-10] MEDS: TAMSULOSIN 0.4 MG CAP.ER.24H PO SCH (09:52)
[2022-11-10] MEDS: APIXABAN 2.5 MG TABLET PO SCH ×2 (09:52→20:44)
[2022-11-10] MEDS: FAMOTIDINE 20 MG/2 ML VIAL IV SCH (09:53)
[2022-11-10] MEDS ORDERED: Potassium Replacement Protocol 1 EACH MISC MISCELLANE PRN (09:53)
[2022-11-10] MEDS ORDERED: Magnesium Replacement Protocol 1 EACH MISC MISCELLANE PRN (09:53)
[2022-11-10] MEDS: DONEPEZIL 5 MG TAB PO SCH ×2 (09:53→20:43)
[2022-11-10] MEDS: MEMANTINE 10 MG TAB PO SCH ×2 (09:53→20:43)
[2022-11-10] MEDS: ESCITALOPRAM 10 MG TAB PO SCH (09:53)
[2022-11-10] MEDS: polyethylene glycoL 3350 17 GM POWD.PACK PO SCH (09:54)
--- NOTE | 2022-11-10 09:54 | P.CRDCN ---
History of Present Illness History of present illness: HISTORY OF PRESENT ILLNESS: This is a 82-year-old male with a past medical history significant for hypertension, CVA, paroxysmal atrial fibrillation, obstructive sleep apnea, and dementia. Patient follows in the office with Dr. Sterling and was last seen in the office in October 2021. We have been asked to see the patient in consultation for atrial fibrillation and edema. Patient examined at the bedside. Patient is admitted to the hospital secondary to urinary tract infection, sepsis, acute kidney failure, and confusion. Patient currently denies any chest pain or pressure. He denies any shortness of breath. Apparently, the patient had some generalized edema yesterday and received a dose of IV Lasix. The patient is currently euvolemic on examination this morning and has no lower extremity edema. Telemetry reveals sinus mechanism. * EKG reveals sinus mechanism with no signs of acute ischemia * Chest xray negative for acute process * Laboratory data: W BC 11.2. Hemoglobin 11.8. Platelet count 126. Sodium 141. Potassium 3.6. BUN 50. Creatinine 2.19. Troponin 0.060. * Current home cardiac medications include Eliquis 5mg BID, Lipitor 20 mg at night, lisinopril-hydrochlorothiazide 20-25mg daily * Most recent echocardiogram obtained in April 2020 revealed ejection fraction 55-60%, trace aortic regurgitation, trace mitral regurgitation, trace tricuspid regurgitation REVIEW OF SYSTEMS: At the time of my exam: CONSTITUTIONAL: Denies fever or chills. HEENT: Denies blurred vision, vision changes, or eye pain. Denies hemoptysis CARDIOVASCULAR: Denies chest pain. Denies orthopnea. Denies PND. Denies palpitations RESPIRATORY: Denies shortness of breath. GASTROINTESTINAL: Denies abdominal pain. Denies nausea or vomiting. HEMATOLOGIC: Denies bleeding disorders. GENITOURINARY: Denies any blood in urine. SKIN: Denies pruitis. Denies rash. PHYSICAL EXAM: VITAL SIGNS: Reviewed. GENERAL: Well-developed in no acute distress. HEENT: Head is normocephalic. Pupils are equal, round. Sclerae anicteric. Mucous membranes of the mouth are moist. Neck supple. No JVD or thyromegaly LUNGS: Respirations even and unlabored. Lungs essentially clear to auscultation bilaterally. HEART: Regular rate and rhythm. S1 and S2 heard. ABDOMEN: Soft. Nondistended. Nontender. EXTREMITIES: Normal range of motion. No clubbing or cyanosis. Peripheral pulses intact. No lower extremity edema NEUROLOGIC: Awake and alert. Oriented x 3. ASSESSMENT: Urinary tract infection Sepsis, secondary to above Acute kidney injury, improving Acute metabolic encephalopathy Paroxysmal atrial fibrillation History of CVA/TIA History of hypertension History of obstructive sleep apnea History of dementia PLAN: Obtain 2-D echo to assess cardiac structure and function Continue current cardiac medications Patient is currently euvolemic and does not require addition of diuretics Patient is currently stable from a cardiac standpoint We will sign off. Please reconsult if needed. Nurse practitioner note has been reviewed by physician. Signing provider agrees with the documented findings, assessment, and plan of care. Past Medical History Past Medical History: Atrial Fibrillation, CVA/TIA, Dementia, Hearing Disorder / Deafness, Hyperlipidemia, Memory Impairment, Prostate Disorder, Renal Disease, Sleep Apnea/CPAP/BIPAP Additional Past Medical History / Comment(s): tia 2018 ?, cva 2019, urinary incontinence, glaucoma History of Any Multi-Drug Resistant Organisms: None Reported Past Surgical History: Hernia Repair, Prostate Surgery Additional Past Surgical History / Comment(s): bladder stimulator in 2021, States thinks he had a TURP. Past Anesthesia/Blood Transfusion Reactions: No Reported Reaction Past Psychological History: No Psychological Hx Reported Smoking Status: Never smoker Past Alcohol Use History: None Reported Past Drug Use History: None Reported - Past Family History Mother Family Medical History: Cancer Father Family Medical History: Myocardial Infarction ([place]) Sister(s) Family Medical History: CVA/TIA Medications and Allergies Home Medications Medication Instructions Recorded Confirmed Type Atorvastatin Calcium [Lipitor] 20 mg PO HS 05/06/20 11/07/22 History Lisinopril-Hctz 20-25 mg 1 tab PO DAILY 05/06/20 11/07/22 History [Zestoretic 20-25] Timolol 0.5% Ophth Soln [Timoptic 1 drop RIGHT EYE TID 05/06/20 11/07/22 History 0.5% Ophth Soln] Apixaban [Eliquis] 5 mg PO BID #60 tab 05/08/20 11/07/22 Rx Donepezil [Aricept] 5 mg PO BID 06/23/22 11/07/22 History Escitalopram [Lexapro] 10 mg PO DAILY 06/23/22 11/07/22 History Ketoconazole 2% Cream [Nizoral 2%] 1 applic TOPICAL BID 11/07/22 11/07/22 History Memantine [Namenda] 10 mg PO BID 11/07/22 11/07/22 History Mirabegron [Myrbetriq] 50 mg PO DAILY 11/07/22 11/07/22 History oxyBUTYnin chloride [oxyBUTYnin 5 mg PO DAILY 11/07/22 11/07/22 History chloride ER] Allergies Allergy/AdvReac Type Severity Reaction Status Date / Time No Known Allergies Allergy Verified 11/07/22 15:11 Physical Exam Vitals: Vital Signs Temp Pulse Resp BP Pulse Ox 11/09/22 07:41 99.7 F H 83 18 174/76 95 11/09/22 01:17 99.0 F 66 17 153/70 95 11/08/22 19:40 102.8 F H 84 15 142/64 95 Intake and Output 11/08/22 11/09/22 11/09/22 22:59 06:59 14:59 Intake Total 540 Output Total 625 950 Balance -85 -950 Intake: Oral 540 Output: Urine 625 950 Other: Voiding Method Indwelling Catheter Indwelling Catheter # Bowel Movements 1 1 Results 11/10/22 06:56 11/10/22 06:28 Current Medications Generic Name Dose Route Start Last Admin Trade Name Freq PRN Reason Stop Dose Admin Acetaminophen 650 mg 11/07/22 12:05 11/08/22 22:34 Acetaminophen Tab 325 Mg Tab PO 650 mg Q6HR PRN Administration Mild Pain or Fever > 100.5 Amlodipine Besylate 5 mg 11/07/22 18:30 11/09/22 08:56 Amlodipine 5 Mg Tab PO 5 mg DAILY [place] Administration Apixaban 2.5 mg 11/07/22 21:00 11/09/22 08:56 Apixaban 2.5 Mg Tablet PO 2.5 mg BID [place] Administration Protocol Atorvastatin Calcium 20 mg 11/07/22 21:00 11/08/22 21:38 Atorvastatin 20 Mg Tab PO 20 mg HS [place] Administration Dextrose/Water 25 ml 11/07/22 18:28 Dextrose 50% Syringe 50 Ml IVP PER PROTOCOL PRN Hypoglycemia Protocol Dextrose/Water 50 ml 11/07/22 18:28 Dextrose 50% Syringe 50 Ml IVP PER PROTOCOL PRN Hypoglycemia Protocol Donepezil HCl 5 mg 11/07/22 21:00 11/09/22 08:57 Donepezil 5 Mg Tab PO 5 mg BID [place] Administration Escitalopram Oxalate 10 mg 11/08/22 09:00 11/09/22 08:57 Escitalopram 10 Mg Tab PO 10 mg DAILY [place] Administration Famotidine 20 mg 11/08/22 09:00 11/09/22 08:56 Famotidine 20 Mg/2 Ml Vial IV 20 mg DAILY [place] Administration Sodium Chloride 1,000 mls @ 75 mls/hr 11/07/22 12:15 11/09/22 03:23 Saline 0.9% IV Not Given .[id number] [place] Piperacillin Sod/Tazobactam 100 mls @ 25 mls/hr 11/08/22 20:00 11/09/22 12:46 Sod 3.375 gm/ Sodium Chloride IVPB 25 mls/hr Q8H [place] Administration Insulin Aspart 0 unit 11/07/22 21:00 11/09/22 12:40 Insulin Aspart (Novolog) 100 Unit/Ml Vial SQ Not Given ACHS [facility] Protocol Memantine 10 mg 11/07/22 21:00 11/09/22 08:57 Memantine 10 Mg Tab PO 10 mg BID [place] Administration Naloxone HCl 0.2 mg 11/07/22 12:05 Naloxone 0.4 Mg/Ml 1 Ml Vial IV Q2M PRN Opioid Reversal Ondansetron HCl 4 mg 11/07/22 18:30 Ondansetron 4 Mg/2 Ml Vial IVP Q6HR PRN Nausea And Vomiting Polyethylene Glycol 17 gm 11/08/22 20:45 11/09/22 08:54 Polyethylene Glycol 3350 17 Gm Powd.Pack PO 17 gm DAILY [place] Administration Timolol Maleate 1 drops 11/07/22 16:00 11/09/22 08:58 Timolol 0.5% Ophth Drops 5 Ml Btl RIGHT EYE 1 drops TID [place] Administration Intake and Output 11/08/22 11/09/22 11/09/22 22:59 06:59 14:59 Intake Total 540 Output Total 625 950 Balance -85 -950 Intake: Oral 540 Output: Urine 625 950 Other: Voiding Method Indwelling Catheter Indwelling Catheter # Bowel Movements 1 1 11/08/22 06:04 11/08/22 06:04
[2022-11-10] MEDS: POTASSIUM CHLORIDE 20 MEQ in WATER FOR INJECTION 1 100ML.BAG IVPB SCH ×2 (10:01→11:47)
--- NOTE | 2022-11-10 10:22 | P.PN ---
Subjective Progress Note Date: 11/09/22 This is a pleasant 82-year-old gentleman with baseline dementia brought in by family secondary to increased fatigue and confusion .Lama catheter placed for urinary retention .T-max 101.9, WBC decreased to 11.2, maintained on ceftriaxone IV. Continues on gentle IV fluid hydration with renal function improving, BUN 50, creatinine 2.19, bicarb 29. Lama catheter with significant sediment. Positive chills and shivering. Denies chest pain, palpitations or shortness of breath. 11/09/22 T-max 102.8. Denies sweats or chills .Blood cultures returned positive for pseudomonas aeruginosa, antibiotics adjusted to Zosyn. Creatinine/electrolytes pending. Positive diet intake. Denies abdominal pain, reports bowel movement yesterday. Denies diarrhea. Yesterday he had slipped, reports hitting the door, brain CT report no acute intracranial process. Denies lightheadedness dizziness or focal deficits. Denies headache. Denies chest pain, palpitations or shortness of breath. Maintaining O2 sats in the mid 90s on room air. Renal ultrasound reporting no evidence for hydronephrosis. Evaluated by urology, recommendations noted including outpatient follow-up as urinary retention may be the result of sacral neural modulation, which he underwent recently in June 2022. Objective - Vital Signs Vital signs: Vital Signs Temp 99.7 F H 11/09/22 07:41 Pulse 83 11/09/22 07:41 Resp 18 11/09/22 07:41 BP 174/76 11/09/22 07:41 Pulse Ox 95 11/09/22 07:41 FiO2 Intake & Output 11/08/22 11/09/22 11/09/22 18:59 06:59 18:59 Intake Total 540 Output Total 1325 950 Balance -1325 -410 Intake: Oral 540 Output: Urine 1325 950 Other: Voiding Method Indwelling Catheter Indwelling Catheter Indwelling Catheter # Bowel Movements 1 1 - Exam PHYSICAL EXAM: VITAL SIGNS: As above GENERAL: Sitting up in bed, alert and oriented to person, place, baseline dementia. No labored breathing with conversing. HEENT: Conjunctivae normal. eyes normal. NECK: Supple, No JVD. CARDIOVASCULAR: S1, S2 regular.. No murmur RESPIRATION: Unlabored, Breath sounds diminished in the bases. ABDOMEN: Soft, nontender . No guarding. no masses palpable. Bowel sounds heard. LEGS: No edema. no swelling, no clubbing, no calf tenderness. NERVOUS SYSTEM: Cranial N 2-12 grossly normal. No focal deficits. Skin: Warm and dry, no rash. - Labs CBC & Chem 7: 11/10/22 06:56 11/10/22 06:28 Labs: Abnormal Lab Results - Last 24 Hours (Table) 11/08/22 11/08/22 11/09/22 Range/Units 17:24 20:33 07:38 POC Glucose (mg/dL) 227 H 246 H 168 H (70-110) mg/dL 11/09/22 Range/Units 12:29 POC Glucose (mg/dL) 150 H (70-110) mg/dL Microbiology - Last 24 Hours (Table) 11/07/22 10:00 Blood Culture Gram Stain - Preliminary Blood 11/07/22 10:15 Blood Culture Gram Stain - Preliminary Blood Blood Culture - Preliminary Pseudomonas spec Assessment and Plan Assessment: Sepsis secondary to acute UTI, related to urinary retention Acute pseudomonas bacteremia, suspect related to the above Acute renal failure secondary to urinary retention Acute metabolic encephalopathy secondary to the above, improving Urinary retention with history of BPH, sacral neuromodulation by Dr. Rosado June 2022,Lama catheter placed History of underlying dementia Chronic A. fib History of CVA, TIA Plan: Continue on current medication regime ,monitoring and symptomatic treatment. Labs pending. Antibiotics adjusted, final sensitivity pending. Urine and repeat Blood cultures in progress. PT OT consulted. The impression and plan of care has been dictated as directed. : I performed a history and examination of this patient, discussed the same with the dictator. I agree with the dictator's note ,documented as a scribe. Any additional findings or plans will be noted.
--- NOTE | 2022-11-10 11:00 | P.PN ---
Subjective Progress Note Date: 11/10/22 This is a pleasant 82-year-old gentleman with baseline dementia brought in by family secondary to increased fatigue and confusion .Lama catheter placed for urinary retention .T-max 101.9, WBC decreased to 11.2, maintained on ceftriaxone IV. Continues on gentle IV fluid hydration with renal function improving, BUN 50, creatinine 2.19, bicarb 29. Lama catheter with significant sediment. Positive chills and shivering. Denies chest pain, palpitations or shortness of breath. 11/09/22 T-max 102.8. Denies sweats or chills .Blood cultures returned positive for pseudomonas aeruginosa, antibiotics adjusted to Zosyn. Creatinine/electrolytes pending. Positive diet intake. Denies abdominal pain, reports bowel movement yesterday. Denies diarrhea. Yesterday he had slipped, reports hitting the door, brain CT report no acute intracranial process. Denies lightheadedness dizziness or focal deficits. Denies headache. Denies chest pain, palpitations or shortness of breath. Maintaining O2 sats in the mid 90s on room air. Renal ultrasound reporting no evidence for hydronephrosis. Evaluated by urology, recommendations noted including outpatient follow-up as urinary retention may be the result of sacral neural modulation, which he underwent recently in June 2022. 11/10/2022 Patient apparently developed mild fluid overload yesterday afternoon accompanied by some generalized edema. IV fluids were discontinued and received a single dose of IV Lasix. This morning, laying flat in bed resting, no edema, denies chest pain, palpitations or shortness of breath. Maintaining O2 sats of 96% on room air.Denies nausea vomiting or diarrhea, no abdominal pain. Renal function continues to improve, creatinine decreased to 1. Potassium 2.8, magnesium 1.5, supplementation ordered. Telemetry sinus. Continues on Zosyn, T-max. 99.7. Objective - Vital Signs Vital signs: Vital Signs Temp 98.2 F 11/10/22 07:07 Pulse 75 11/10/22 07:07 Resp 16 11/10/22 07:07 BP 142/63 11/10/22 07:07 Pulse Ox 96 11/10/22 07:07 FiO2 Intake & Output 11/09/22 11/10/22 11/10/22 18:59 06:59 18:59 Intake Total 100 540 Output Total 2900 1675 Balance -2429 -0920 Intake: Intake, IV Titration 100 Amount Piperacillin-Tazobactam 3 100 .375 gm In Sodium Chloride 0.9% 100 ml @ 25 mls/hr IVPB Q8H [facility] Rx#: [id number] Oral 540 Output: Urine 2900 1675 Other: Voiding Method Indwelling Catheter Indwelling Catheter # Bowel Movements 2 - Exam PHYSICAL EXAM: VITAL SIGNS: As above GENERAL: Sitting up in bed, alert and oriented to person, place, NAD. HEENT: Normocephalic, Conjunctivae normal. eyes normal. NECK: Supple, No JVD. CARDIOVASCULAR: S1, S2 regular. No murmur RESPIRATION: Unlabored, Breath sounds diminished in the bases. ABDOMEN: Soft, nontender . No guarding. no masses palpable. Bowel sounds heard. LEGS: No edema. no swelling, no clubbing, no calf tenderness. NERVOUS SYSTEM: Cranial N 2-12 grossly normal. No focal deficits. Skin: Warm and dry, no rash. Microbiology 11/07/22 10:15 Blood Blood Culture Gram Stain - Final 11/07/22 10:15 Blood Blood Culture - Final Pseudomonas aeruginosa 11/07/22 10:00 Blood Blood Culture Gram Stain - Final 11/07/22 10:00 Blood Blood Culture - Final Pseudomonas aeruginosa 11/08/22 14:32 Urine,Catheterized Urine Culture - Preliminary Gram Neg Bacilli - Labs CBC & Chem 7: 11/10/22 06:56 11/10/22 06:28 Labs: Abnormal Lab Results - Last 24 Hours (Table) 11/09/22 11/09/22 11/09/22 Range/Units 05:56 12:29 17:23 RBC (4.30-5.90) m/uL Hgb (13.0-17.5) gm/dL Hct (39.0-53.0) % Plt Count (150-450) k/uL Potassium 3.4 L (3.5-5.5) mmol/L Carbon Dioxide (22-30) mmol/L Anion Gap 14.40 H (4.00-12.00) mmol/L BUN 28.0 H (9.0-27.0) mg/dL Est GFR (CKD-EPI) 50 L (>=60) Glucose 133 H (70-110) mg/dL POC Glucose (mg/dL) 150 H 236 H (70-110) mg/dL Calcium 8.0 L (8.7-10.3) mg/dL Magnesium (1.6-2.3) mg/dL Total Protein (6.3-8.2) g/dL Albumin (3.5-5.0) g/dL 11/09/22 11/10/22 11/10/22 Range/Units 20:18 06:28 06:28 RBC (4.30-5.90) m/uL Hgb (13.0-17.5) gm/dL Hct (39.0-53.0) % Plt Count (150-450) k/uL Potassium 2.8 L (3.5-5.5) mmol/L Carbon Dioxide 32 H (22-30) mmol/L Anion Gap (4.00-12.00) mmol/L BUN (9.0-27.0) mg/dL Est GFR (CKD-EPI) (>=60) Glucose 135 H (70-110) mg/dL POC Glucose (mg/dL) 160 H (70-110) mg/dL Calcium 7.2 L (8.7-10.3) mg/dL Magnesium 1.5 L (1.6-2.3) mg/dL Total Protein 5.3 L (6.3-8.2) g/dL Albumin 2.8 L (3.5-5.0) g/dL 11/10/22 11/10/22 Range/Units 06:56 07:38 RBC 3.54 L (4.30-5.90) m/uL Hgb 11.5 L (13.0-17.5) gm/dL Hct 33.9 L (39.0-53.0) % Plt Count 147 L (150-450) k/uL Potassium (3.5-5.5) mmol/L Carbon Dioxide (22-30) mmol/L Anion Gap (4.00-12.00) mmol/L BUN (9.0-27.0) mg/dL Est GFR (CKD-EPI) (>=60) Glucose (70-110) mg/dL POC Glucose (mg/dL) 142 H (70-110) mg/dL Calcium (8.7-10.3) mg/dL Magnesium (1.6-2.3) mg/dL Total Protein (6.3-8.2) g/dL Albumin (3.5-5.0) g/dL Microbiology - Last 24 Hours (Table) 11/08/22 14:32 Urine Culture - Preliminary Urine,Catheterized Gram Neg Bacilli 11/07/22 10:00 Blood Culture Gram Stain - Preliminary Blood 11/07/22 10:15 Blood Culture Gram Stain - Preliminary Blood Blood Culture - Preliminary Pseudomonas spec Assessment and Plan Assessment: Sepsis secondary to acute gram-negative bacilli UTI, related to urinary retention Acute pseudomonas bacteremia, suspect related to the above Acute renal failure secondary to urinary retention Acute metabolic encephalopathy secondary to the above, improving Urinary retention with history of BPH, sacral neuromodulation by Dr. Rosado June 2022,Lama catheter placed History of underlying dementia Chronic A. fib History of CVA, TIA Hypokalemia Hypomagnesemia Plan: Continue on current medication regime ,monitoring and symptomatic treatment. Potassium and magnesium supplementation ordered with repeat potassium level later this afternoon. Antibiotics as per ID. Repeat Blood cultures in progress. Echo pending. PT OT. The impression and plan of care has been dictated as directed. .: I performed a history and examination of this patient, discussed the same with the dictator. I agree with the dictator's note ,documented as a scribe. Any additional findings or plans will be noted.
[2022-11-10 12:03] LABS: Glucose,Whole Blood 283 mg/dL (70-110)
--- NOTE | 2022-11-10 12:43 | CA ---
Transthoracic Echo Report Name: Rory Ambriz Age: 82 Gender: M : 1940 Exam Date: 11/09/2022 14:06 Exam Location: [place] [facility] Ht (in): 68 Wt (lb): 207 Ordering Physician: Yulissa Jansen Attending/Referring Phys: [id number], Inderjit Blow Machine T[employer] Aster Gomez [facility] Procedure CPT: Indications: LV function Cardiac Hx: Technical Quality: Technically difficult study Contrast 1: Lumason Total Dose (mL): 5 Contrast 2: Total Dose (mL): MEASUREMENTS (Male / Female) Normal Values 2D ECHO LV Diastolic Diameter PLAX 4.9 cm 4.2 - 5.9 / 3.9 - 5.3 cm LV Systolic Diameter PLAX 3.1 cm IVS Diastolic Thickness 1.2 cm 0.6 - 1.0 / 0.6 - 0.9 cm LVPW Diastolic Thickness 1.0 cm 0.6 - 1.0 / 0.6 - 0.9 cm LV Relative Wall Thickness 0.5 LVOT Diameter 2.0 cm Ascending Aorta Diameter 3.1 cm M-MODE Aortic Root Diameter MM 2.9 cm LA Systolic Diameter MM 4.3 cm LA Ao Ratio MM 1.5 AV Cusp Separation MM 1.6 cm DOPPLER AV Peak Velocity 150.7 cm/s AV Peak Gradient 9.1 mmHg AV Mean Velocity 116.7 cm/s AV Mean Gradient 5.8 mmHg AV Velocity Time Integral 28.7 cm LVOT Peak Velocity 98.8 cm/s LVOT Peak Gradient 3.9 mmHg LVOT Velocity Time Integral 24.7 cm LVOT Stroke Volume 79.0 cm??? LVOT Stroke Volume Index 38.1 ml/m??? LVOT Cardiac Index 2532.1 cm???/min???m??? AV Area Cont Eq vti 2.8 cm??? AV Area Cont Eq pk 2.1 cm??? Mitral E Point Velocity 60.7 cm/s Mitral A Point Velocity 74.5 cm/s Mitral E to A Ratio 0.8 MV Deceleration Time 162.9 ms LV E' Lateral Velocity 8.9 cm/s Mitral E to LV E' Lateral Ratio 6.8 LV E' Septal Velocity 5.7 cm/s Mitral E to LV E' Septal Ratio 10.7 Right Atrial Pressure 8.0 mmHg FINDINGS Left Ventricle Mildly increased septal wall thickness. No obvious regional wall motion abnormalities. Left ventricular ejection fraction is estimated at 60-65%. Right Ventricle Right ventricular mild to moderate dilation Right Atrium Right atrium not well visualized. Left Atrium Normal left atrial size. Mitral Valve Mild thickening/calcification of the posterior mitral valve leaflet. Aortic Valve Trileaflet aortic valve. Thickened aortic valve without stenosis. No aortic regurgitation. Tricuspid Valve Structurally normal tricuspid valve. No tricuspid regurgitation. Pulmonic Valve Structurally normal pulmonic valve. No pulmonic regurgitation. Pericardium No pericardial effusion. Aorta Normal size aortic root and proximal ascending aorta. CONCLUSIONS Mild increased left ventricular wall thickness Left ventricular ejection fraction 60-65% Mild to moderate right ventricular dilation No pericardial effusion Previewed by: Dr. Juancarlos Maria DO (Electronically Signed) Final Date: 10 November 2022 12:42
--- NOTE | 2022-11-10 16:45 | P.PN ---
Subjective Progress Note Date: 11/10/22 Principal diagnosis: Pseudomonas urinary tract infection and bacteremia Patient is a 82-year-old male with multiple comorbidities presented to the hospital with mental status changes and weakness patient did have evidence of complicated UTI with evidence of pseudomonas bacteremia On today's evaluation that is 11/10/2022, the patient is afebrile she is more awake and alert today, the patient is breathing comfortably, patient denies any chest pain shortness of breath or cough no abdominal pain or diarrhea Objective - Vital Signs Vital signs: Vital Signs Temp 98.4 F 11/10/22 11:15 Pulse 72 11/10/22 11:15 Resp 16 11/10/22 11:15 BP 156/68 11/10/22 11:15 Pulse Ox 97 11/10/22 11:15 FiO2 Intake & Output 11/09/22 11/10/22 11/10/22 18:59 06:59 18:59 Intake Total 100 540 Output Total 2900 1675 Balance -2800 -1135 Intake: Intake, IV Titration 100 Amount Piperacillin-Tazobactam 3 100 .375 gm In Sodium Chloride 0.9% 100 ml @ 25 mls/hr IVPB Q8H [facility] Rx#: [id number] Oral 540 Output: Urine 2900 1675 Other: Voiding Method Indwelling Catheter Indwelling Catheter Indwelling Catheter # Bowel Movements 2 - Exam GENERAL DESCRIPTION: An elderly male lying in bed in no distress RESPIRATORY SYSTEM: Unlabored breathing , decreased breath sounds at bases HEART: S1 S2 regular rate and rhythm , ABDOMEN: Soft , no tenderness EXTREMITIES: No edema feet - Labs CBC & Chem 7: 11/10/22 06:56 11/10/22 16:19 Labs: Abnormal Lab Results - Last 24 Hours (Table) 11/09/22 11/09/22 11/09/22 Range/Units 05:56 12:29 17:23 RBC (4.30-5.90) m/uL Hgb (13.0-17.5) gm/dL Hct (39.0-53.0) % Plt Count (150-450) k/uL Potassium 3.4 L (3.5-5.5) mmol/L Carbon Dioxide (22-30) mmol/L Anion Gap 14.40 H (4.00-12.00) mmol/L BUN 28.0 H (9.0-27.0) mg/dL Est GFR (CKD-EPI) 50 L (>=60) Glucose 133 H (70-110) mg/dL POC Glucose (mg/dL) 150 H 236 H (70-110) mg/dL Calcium 8.0 L (8.7-10.3) mg/dL Magnesium (1.6-2.3) mg/dL Total Protein (6.3-8.2) g/dL Albumin (3.5-5.0) g/dL 11/09/22 11/10/22 11/10/22 Range/Units 20:18 06:28 06:28 RBC (4.30-5.90) m/uL Hgb (13.0-17.5) gm/dL Hct (39.0-53.0) % Plt Count (150-450) k/uL Potassium 2.8 L (3.5-5.5) mmol/L Carbon Dioxide 32 H (22-30) mmol/L Anion Gap (4.00-12.00) mmol/L BUN (9.0-27.0) mg/dL Est GFR (CKD-EPI) (>=60) Glucose 135 H (70-110) mg/dL POC Glucose (mg/dL) 160 H (70-110) mg/dL Calcium 7.2 L (8.7-10.3) mg/dL Magnesium 1.5 L (1.6-2.3) mg/dL Total Protein 5.3 L (6.3-8.2) g/dL Albumin 2.8 L (3.5-5.0) g/dL 11/10/22 11/10/22 11/10/22 Range/Units 06:56 07:38 12:00 RBC 3.54 L (4.30-5.90) m/uL Hgb 11.5 L (13.0-17.5) gm/dL Hct 33.9 L (39.0-53.0) % Plt Count 147 L (150-450) k/uL Potassium (3.5-5.5) mmol/L Carbon Dioxide (22-30) mmol/L Anion Gap (4.00-12.00) mmol/L BUN (9.0-27.0) mg/dL Est GFR (CKD-EPI) (>=60) Glucose (70-110) mg/dL POC Glucose (mg/dL) 142 H 283 H (70-110) mg/dL Calcium (8.7-10.3) mg/dL Magnesium (1.6-2.3) mg/dL Total Protein (6.3-8.2) g/dL Albumin (3.5-5.0) g/dL Microbiology - Last 24 Hours (Table) 11/07/22 10:15 Blood Culture Gram Stain - Final Blood Blood Culture - Final Pseudomonas aeruginosa 11/07/22 10:00 Blood Culture Gram Stain - Final Blood Blood Culture - Final Pseudomonas aeruginosa 11/08/22 14:32 Urine Culture - Preliminary Urine,Catheterized Gram Neg Bacilli Assessment and Plan (1) Bacteremia due to Pseudomonas Current Visit: Yes Status: Acute Code(s): R78.81 - BACTEREMIA; B96.5 - PSEUDOMONAS (MALLEI) CAUSING DISEASES CLASSD [facility] SNOMED Code(s): 7396478874 (2) UTI (urinary tract infection) Current Visit: Yes Status: Acute Code(s): N39.0 - URINARY TRACT INFECTION, SITE NOT SPECIFIED SNOMED Code(s): 84073038 Plan: 1patient presented hospital with sepsis in this patient who did have a fever elevated white count elevated lactic acid source likely complicated urinary tract infection, Patient with evidence of Pseudomonas bacteremia likely secondary urinary source ultrasound was negative for any hydronephrosis 2-blood cultures has been repeated document clearance of his bacteremia 3-patient to continue with the Zosyn however pseudomonas is a sensitive pathogen sensitive to Cipro, it the patient is going home, will be able to finish therapy with oral Cipro but if going to the longterm short course of cefepime will help Time with Patient: Less than 30
[2022-11-10 17:13] LABS: Glucose,Whole Blood 155 mg/dL (70-110)
[2022-11-10] MEDS: POTASSIUM CHLORIDE ER 20 MEQ TAB.ER PO SCH ×2 (17:49→19:06)
[2022-11-10 20:24] LABS: Glucose,Whole Blood 222 mg/dL (70-110)
[2022-11-10] MEDS: ATORVASTATIN 20 MG TAB PO SCH (20:44)
[2022-11-11] MEDS: PIPERACILLIN-TAZOBACTAM 3.375 GM in SODIUM CHLORIDE 0.9% 100 ML IVPB SCH ×3 (03:59→19:54)
[2022-11-11 07:22] LABS: African American GFR (CKD) 87 (>60 ml/min/1.73 sqM); Anion Gap 6 mmol/L; Blood Urea Nitrogen 16 mg/dL (9-20); Calcium 7.7 mg/dL (8.4-10.2); Carbon Dioxide 31 mmol/L (22-30); Chloride 100 mmol/L (98-107); Glucose 131 mg/dL (74-99); Non-African American GFR(CKD) 76 (>60 ml/min/1.73 sqM); Potassium 3.5 mmol/L (3.5-5.1); Sodium 137 mmol/L (137-145)
[2022-11-11 07:36] LABS: Glucose,Whole Blood 159 mg/dL (70-110)
[2022-11-11] MEDS: INSULIN ASPART (NovoLOG) 100 UNIT/ML VIAL SQ SCH ×4 (08:17→21:24)
[2022-11-11] MEDS: TAMSULOSIN 0.4 MG CAP.ER.24H PO SCH (08:17)
[2022-11-11] MEDS: polyethylene glycoL 3350 17 GM POWD.PACK PO SCH (08:17)
[2022-11-11] MEDS: APIXABAN 2.5 MG TABLET PO SCH ×2 (08:17→21:25)
[2022-11-11] MEDS: FAMOTIDINE 20 MG/2 ML VIAL IV SCH (08:17)
[2022-11-11] MEDS: amLODIPine 5 MG TAB PO SCH ×2 (08:17→21:24)
[2022-11-11] MEDS: DONEPEZIL 5 MG TAB PO SCH ×2 (08:18→21:25)
[2022-11-11] MEDS: ESCITALOPRAM 10 MG TAB PO SCH (08:18)
[2022-11-11] MEDS: MEMANTINE 10 MG TAB PO SCH ×2 (08:18→21:25)
[2022-11-11] MEDS: TIMOLOL 0.5% OPHTH DROPS 5 ML BTL RIGHT EYE SCH ×3 (08:19→21:25)
[2022-11-11] MEDS ORDERED: Magnesium Replacement Protocol 1 EACH MISC MISCELLANE PRN (09:41)
[2022-11-11] MEDS ORDERED: POTASSIUM CHLORIDE ER 20 MEQ TAB.ER PO STA (09:41)
--- NOTE | 2022-11-11 10:20 | P.PN ---
Subjective Progress Note Date: 11/11/22 This is a pleasant 82-year-old gentleman with baseline dementia brought in by family secondary to increased fatigue and confusion .Lama catheter placed for urinary retention .T-max 101.9, WBC decreased to 11.2, maintained on ceftriaxone IV. Continues on gentle IV fluid hydration with renal function improving, BUN 50, creatinine 2.19, bicarb 29. Lama catheter with significant sediment. Positive chills and shivering. Denies chest pain, palpitations or shortness of breath. 11/09/22 T-max 102.8. Denies sweats or chills .Blood cultures returned positive for pseudomonas aeruginosa, antibiotics adjusted to Zosyn. Creatinine/electrolytes pending. Positive diet intake. Denies abdominal pain, reports bowel movement yesterday. Denies diarrhea. Yesterday he had slipped, reports hitting the door, brain CT report no acute intracranial process. Denies lightheadedness dizziness or focal deficits. Denies headache. Denies chest pain, palpitations or shortness of breath. Maintaining O2 sats in the mid 90s on room air. Renal ultrasound reporting no evidence for hydronephrosis. Evaluated by urology, recommendations noted including outpatient follow-up as urinary retention may be the result of sacral neural modulation, which he underwent recently in June 2022. 11/10/2022 Patient apparently developed mild fluid overload yesterday afternoon accompanied by some generalized edema. IV fluids were discontinued and received a single dose of IV Lasix. This morning, laying flat in bed resting, no edema, denies chest pain, palpitations or shortness of breath. Maintaining O2 sats of 96% on room air.Denies nausea vomiting or diarrhea, no abdominal pain. Renal function continues to improve, creatinine decreased to 1. Potassium 2.8, magnesium 1.5, supplementation ordered. Telemetry sinus. Continues on Zosyn, T-max. 99.7. 11/11/2022 maintained on Zosyn. Repeat cultures in progress. Lama with clear urine. Afebrile. Magnesium and potassium improving after supplementation, 3.5 and 1.6. Additional supplementation today ordered. Renal function continues improving, BUN 16, creatinine 0.94. Bicarb 31. Ambulating to bathroom with assistance, tolerated exertion well. Good diet intake, denies nausea, vomiting or diarrhea. Denies abdominal pain. Denies chest pain, palpitations or shortness of breath. Echo reporting normal LV function, EF 60-65%, [id number] right ventricular dilation. Objective - Vital Signs Vital signs: Vital Signs Temp 98.4 F 11/11/22 07:24 Pulse 69 11/11/22 07:24 Resp 17 11/11/22 07:24 BP 173/81 11/11/22 07:24 Pulse Ox 96 11/11/22 07:24 FiO2 Intake & Output 11/10/22 11/11/22 11/11/22 18:59 06:59 18:59 Output Total 1000 1500 Balance -1000 -1500 Output: Urine 1000 1500 Other: Voiding Method Indwelling Catheter Indwelling Catheter # Bowel Movements 1 - Exam PHYSICAL EXAM: VITAL SIGNS: As above GENERAL: Sitting up in bed, alert and oriented 3, NAD. HEENT: Normocephalic, Conjunctivae normal. eyes normal. NECK: Supple, No JVD. CARDIOVASCULAR: S1, S2 regular. No murmur RESPIRATION: Unlabored, Breath sounds essentially clear to auscultation. ABDOMEN: Soft, nondistended, nontender . No guarding, no rigidity. +BS LEGS: No edema. no swelling, no clubbing, no calf tenderness. NERVOUS SYSTEM: Cranial N 2-12 grossly normal. No focal deficits. Skin: Warm and dry, no rash. Microbiology 11/08/22 14:32 Urine,Catheterized Urine Culture - Final Pseudomonas aeruginosa 11/07/22 10:15 Blood Blood Culture Gram Stain - Final 11/07/22 10:15 Blood Blood Culture - Final Pseudomonas aeruginosa 11/07/22 10:00 Blood Blood Culture Gram Stain - Final 11/07/22 10:00 Blood Blood Culture - Final Pseudomonas aeruginosa - Labs CBC & Chem 7: 11/10/22 06:56 11/11/22 06:00 Labs: Abnormal Lab Results - Last 24 Hours (Table) 11/10/22 11/10/22 11/10/22 Range/Units 06:28 12:00 16:19 Potassium 3.2 L (3.5-5.1) mmol/L Carbon Dioxide (22-30) mmol/L Glucose (74-99) mg/dL POC Glucose (mg/dL) 283 H (70-110) mg/dL Calcium (8.4-10.2) mg/dL Magnesium 1.5 L (1.6-2.3) mg/dL 11/10/22 11/10/22 11/11/22 Range/Units 17:06 20:23 06:00 Potassium (3.5-5.1) mmol/L Carbon Dioxide 31 H (22-30) mmol/L Glucose 131 H (74-99) mg/dL POC Glucose (mg/dL) 155 H 222 H (70-110) mg/dL Calcium 7.7 L (8.4-10.2) mg/dL Magnesium (1.6-2.3) mg/dL 11/11/22 Range/Units 07:25 Potassium (3.5-5.1) mmol/L Carbon Dioxide (22-30) mmol/L Glucose (74-99) mg/dL POC Glucose (mg/dL) 159 H (70-110) mg/dL Calcium (8.4-10.2) mg/dL Magnesium (1.6-2.3) mg/dL Microbiology - Last 24 Hours (Table) 11/08/22 14:32 Urine Culture - Final Urine,Catheterized Pseudomonas aeruginosa 11/07/22 10:15 Blood Culture Gram Stain - Final Blood Blood Culture - Final Pseudomonas aeruginosa 11/07/22 10:00 Blood Culture Gram Stain - Final Blood Blood Culture - Final Pseudomonas aeruginosa Assessment and Plan Assessment: Sepsis secondary to acute gram-negative bacilli UTI, related to urinary r etention Acute pseudomonas bacteremia, suspect related to the above Acute renal failure secondary to urinary retention Acute metabolic encephalopathy secondary to the above, improving Urinary retention with history of BPH, sacral neuromodulation by Dr. Rosado June 2022,Lama catheter placed History of underlying dementia Chronic A. fib History of CVA, TIA Hypokalemia Hypomagnesemia Plan: Continue on current medication regime ,monitoring and symptomatic treatment. Lama order to be discontinued , voiding trial , post void residuals ordered. Potassium and magnesium supplementation ordered. Antibiotics as per ID. Repeat Blood cultures in progress. PT OT, increase ambulation with assistance. Discharge planning in progress pending repeat blood cultures report clearance of bacteremia, possibly in 48 hours. The impression and plan of care has been dictated as directed. : I performed a history and examination of this patient, discussed the same with the dictator. I agree with the dictator's note ,documented as a scribe. Any additional findings or plans will be noted.
--- NOTE | 2022-11-11 11:10 | P.PN ---
Subjective Patient is seen in follow-up for acute kidney injury. Renal function at baseline. Nonoliguric. Has Lama catheter. No vomiting or diarrhea. Blood pressure on the higher side this morning. Vital signs are stable. General: No acute distress. HEENT: Head exam is unremarkable. LUNGS: No audible rhonchi or wheezes. HEART: Rate and Rhythm are regular. ABDOMEN: Nontender. EXTREMITITES: No edema. Objective - Vital Signs Vital signs: Vital Signs Temp 98.4 F 11/11/22 07:24 Pulse 69 11/11/22 07:24 Resp 17 11/11/22 07:24 BP 173/81 11/11/22 07:24 Pulse Ox 96 11/11/22 07:24 FiO2 Intake & Output 11/10/22 11/11/22 11/11/22 18:59 06:59 18:59 Output Total 1000 1500 700 Balance -1000 -1500 -700 Output: Urine 1000 1500 700 Other: Voiding Method Indwelling Catheter Indwelling Catheter Indwelling Catheter # Bowel Movements 1 1 - Labs CBC & Chem 7: 11/10/22 06:56 11/11/22 06:00 Labs: Abnormal Lab Results - Last 24 Hours (Table) 11/10/22 11/10/22 11/10/22 Range/Units 12:00 16:19 17:06 Potassium 3.2 L (3.5-5.1) mmol/L Carbon Dioxide (22-30) mmol/L Glucose (74-99) mg/dL POC Glucose (mg/dL) 283 H 155 H (70-110) mg/dL Calcium (8.4-10.2) mg/dL 11/10/22 11/11/22 11/11/22 Range/Units 20:23 06:00 07:25 Potassium (3.5-5.1) mmol/L Carbon Dioxide 31 H (22-30) mmol/L Glucose 131 H (74-99) mg/dL POC Glucose (mg/dL) 222 H 159 H (70-110) mg/dL Calcium 7.7 L (8.4-10.2) mg/dL Microbiology - Last 24 Hours (Table) 11/08/22 14:32 Urine Culture - Final Urine,Catheterized Pseudomonas aeruginosa 11/07/22 10:15 Blood Culture Gram Stain - Final Blood Blood Culture - Final Pseudomonas aeruginosa 11/07/22 10:00 Blood Culture Gram Stain - Final Blood Blood Culture - Final Pseudomonas aeruginosa Assessment and Plan Plan: Assessment: 1. Acute kidney injury injury to urinary retention. Renal function near baseline. 2. Urinary retention with history of BPH. Has Lama catheter. On Flomax. Urology following. 3. Pseudomonas bacteremia and UTI on antibiotics. ID following. 4. Benign hypertension. 5. Mild volume overload status post IV Lasix this admission. 6. Hypokalemia from diuresis. Replace. Improved. 7. Mild hypomagnesemia from poor intake and diuresis. Plan: Encourage oral intake. Avoid nephrotoxins. Replace potassium and magnesium. Increase dose of amlodipine to 5 mg twice daily. Hold for systolic blood pressure less than 120.
[2022-11-11] MEDS: MAGNESIUM OXIDE 400 MG TAB PO SCH ×2 (11:18→21:25)
[2022-11-11 12:13] LABS: Glucose,Whole Blood 175 mg/dL (70-110)
[2022-11-11 17:10] LABS: Glucose,Whole Blood 167 mg/dL (70-110)
[2022-11-11 20:11] LABS: Glucose,Whole Blood 194 mg/dL (70-110)
[2022-11-11] MEDS: ATORVASTATIN 20 MG TAB PO SCH (21:25)
[2022-11-12] MEDS: PIPERACILLIN-TAZOBACTAM 3.375 GM in SODIUM CHLORIDE 0.9% 100 ML IVPB SCH ×3 (03:56→20:36)
--- NOTE | 2022-11-12 07:18 | P.PN ---
Subjective Progress Note Date: 11/11/22 Principal diagnosis: Pseudomonas urinary tract infection and bacteremia Patient is a 82-year-old male with multiple comorbidities presented to the hospital with mental status changes and weakness patient did have evidence of complicated UTI with evidence of pseudomonas bacteremia On today's evaluation that is 11/11/2022, the patient remains to be afebrile the patient is breathing comfortably currently on room air no chest pain no shortness of breath or cough no nausea no vomiting no abdominal pain no diarrhea plan is for removal of the Lama catheter today Objective - Vital Signs Vital signs: Vital Signs Temp 98.5 F 11/11/22 11:32 Pulse 70 11/11/22 11:32 Resp 16 11/11/22 11:32 BP 167/71 11/11/22 11:32 Pulse Ox 97 11/11/22 11:32 FiO2 Intake & Output 11/10/22 11/11/22 11/11/22 18:59 06:59 18:59 Output Total 1000 1500 700 Balance -1000 -1500 -700 Output: Urine 1000 1500 700 Other: Voiding Method Indwelling Catheter Indwelling Catheter Indwelling Catheter # Bowel Movements 1 1 - Exam GENERAL DESCRIPTION: An elderly male lying in bed in no distress RESPIRATORY SYSTEM: Unlabored breathing , decreased breath sounds at bases HEART: S1 S2 regular rate and rhythm , ABDOMEN: Soft , no tenderness EXTREMITIES: No edema feet - Labs CBC & Chem 7: 11/10/22 06:56 11/11/22 19:03 Labs: Abnormal Lab Results - Last 24 Hours (Table) 11/10/22 11/10/22 11/10/22 Range/Units 12:00 16:19 17:06 Potassium 3.2 L (3.5-5.1) mmol/L Carbon Dioxide (22-30) mmol/L Glucose (74-99) mg/dL POC Glucose (mg/dL) 283 H 155 H (70-110) mg/dL Calcium (8.4-10.2) mg/dL 11/10/22 11/11/22 11/11/22 Range/Units 20:23 06:00 07:25 Potassium (3.5-5.1) mmol/L Carbon Dioxide 31 H (22-30) mmol/L Glucose 131 H (74-99) mg/dL POC Glucose (mg/dL) 222 H 159 H (70-110) mg/dL Calcium 7.7 L (8.4-10.2) mg/dL Microbiology - Last 24 Hours (Table) 11/08/22 14:32 Urine Culture - Final Urine,Catheterized Pseudomonas aeruginosa 11/07/22 10:15 Blood Culture Gram Stain - Final Blood Blood Culture - Final Pseudomonas aeruginosa 11/07/22 10:00 Blood Culture Gram Stain - Final Blood Blood Culture - Final Pseudomonas aeruginosa Assessment and Plan (1) Bacteremia due to Pseudomonas Current Visit: Yes Status: Acute Code(s): R78.81 - BACTEREMIA; B96.5 - PSEUDOMONAS (MALLEI) CAUSING DISEASES CLASSD [facility] SNOMED Code(s): 4296500221 (2) UTI (urinary tract infection) Current Visit: Yes Status: Acute Code(s): N39.0 - URINARY TRACT INFECTION, SITE NOT SPECIFIED SNOMED Code(s): 41368219 Plan: 1patient presented hospital with sepsis in this patient who did have a fever elevated white count elevated lactic acid source likely complicated urinary tract infection, Patient with evidence of Pseudomonas bacteremia likely secondary urinary source ultrasound was negative for any hydronephrosis 2-blood cultures has been repeated document clearance of his bacteremia 3-patient to continue with the Zosyn however pseudomonas is a sensitive pathogen sensitive to Cipro, the repeat blood culture remains to be negative patient will be able to finish therapy with oral Cipro x10 days if going home and close outpatient follow-up discussed with the [employer] for admitting team Time with Patient: Less than 30
[2022-11-12 07:40] LABS: Glucose,Whole Blood 146 mg/dL (70-110)
[2022-11-12] MEDS: INSULIN ASPART (NovoLOG) 100 UNIT/ML VIAL SQ SCH ×4 (07:41→20:36)
[2022-11-12] MEDS: amLODIPine 5 MG TAB PO SCH ×2 (08:30→20:36)
[2022-11-12] MEDS: FAMOTIDINE 20 MG/2 ML VIAL IV SCH (08:30)
[2022-11-12] MEDS: MAGNESIUM OXIDE 400 MG TAB PO SCH ×2 (08:30→20:35)
[2022-11-12] MEDS: TAMSULOSIN 0.4 MG CAP.ER.24H PO SCH (08:30)
[2022-11-12] MEDS: APIXABAN 2.5 MG TABLET PO SCH (08:30)
[2022-11-12] MEDS: DONEPEZIL 5 MG TAB PO SCH ×2 (08:31→20:35)
[2022-11-12] MEDS: MEMANTINE 10 MG TAB PO SCH ×2 (08:31→20:35)
[2022-11-12] MEDS: polyethylene glycoL 3350 17 GM POWD.PACK PO SCH (08:32)
[2022-11-12] MEDS: ESCITALOPRAM 10 MG TAB PO SCH (08:32)
[2022-11-12] MEDS: TIMOLOL 0.5% OPHTH DROPS 5 ML BTL RIGHT EYE SCH ×3 (08:35→20:36)
[2022-11-12 09:22] VITALS: BMI 31.4
[2022-11-12 09:50] LABS: Blood Urea Nitrogen 17.3 mg/dL (9.0-27.0); Calcium 8.1 mg/dL (8.7-10.3); Carbon Dioxide 24.2 mmol/L (21.6-31.8); Chloride 102 mmol/L (96-109); Glucose 142 mg/dL (70-110); Magnesium 1.7 mg/dL (1.5-2.4); Potassium 3.8 mmol/L (3.5-5.5); Sodium 138 mmol/L (135-145)
--- NOTE | 2022-11-12 09:57 | P.DS ---
Providers Date of admission: 11/07/22 12:05 Expected date of discharge: 11/12/22 Attending physician: Clifford Ruby MD Consults: 11/07/22 13:06 Consult Physician Urgent Consulting Provider: Eric Sauer Consult Reason/Comments: urinary retention Do you want consulting provider notified?: Yes Consult Physician Urgent Consulting Provider: Sharonda Salinas Consult Reason/Comments: alyssa Do you want consulting provider notified?: Yes 11/09/22 11:59 Consult Physician Routine Consulting Provider: Francisco Pryor Consult Reason/Comments: Bacteremia Do you want consulting provider notified?: Yes Primary care physician: [facility] Course: Final Diagnoses: Sepsis secondary to acute pseudomonas UTI, likely complicated, related to urinary retention. Renal ultrasound reporting negative for hydronephrosis. Acute pseudomonas bacteremia, suspect related to the above Acute renal failure secondary to urinary retention Acute metabolic encephalopathy secondary to the above, improving Urinary retention with history of BPH, sacral neuromodulation by Dr. Rosado June 2022,Johnson catheter reinserted secondary to high post void residuals History of underlying dementia Chronic A. fib History of CVA, TIA Hypokalemia Hypomagnesemia Hospital course:This is a pleasant 82-year-old gentleman with baseline dementia brought in by family secondary to increased fatigue and confusion .Johnson catheter placed for urinary retention .T-max 101.9, WBC decreased to 11.2, maintained on ceftriaxone IV. Continues on gentle IV fluid hydration with renal function improving, BUN 50, creatinine 2.19, bicarb 29. Johnson catheter with significant sediment. Positive chills and shivering. Denies chest pain, palpitations or shortness of breath. 11/09/22 T-max 102.8. Denies sweats or chills .Blood cultures returned positive for pseudomonas aeruginosa, antibiotics adjusted to Zosyn. Creatinine/electrolytes pending. Positive diet intake. Denies abdominal pain, reports bowel movement yesterday. Denies diarrhea. Yesterday he had slipped, reports hitting the door, brain CT report no acute intracranial process. Denies lightheadedness dizziness or focal deficits. Denies headache. Denies chest pain, palpitations or shortness of breath. Maintaining O2 sats in the mid 90s on room air. Renal ultrasound reporting no evidence for hydronephrosis. Evaluated by urology, recommendations noted including outpatient follow-up as urinary retention may be the result of sacral neural modulation, which he underwent recently in June 2022. 11/10/2022 Patient apparently developed mild fluid overload yesterday afternoon accompanied by some generalized edema. IV fluids were discontinued and received a single dose of IV Lasix. This morning, laying flat in bed resting, no edema, denies chest pain, palpitations or shortness of breath. Maintaining O2 sats of 96% on room air.Denies nausea vomiting or diarrhea, no abdominal pain. Renal function continues to improve, creatinine decreased to 1. Potassium 2.8, magnesium 1.5, supplementation ordered. Telemetry sinus. Continues on Zosyn, T-max. 99.7. 11/11/2022 maintained on Zosyn. Repeat cultures in progress. Johnson with clear urine. Afebrile. Magnesium and potassium improving after supplementation, 3.5 and 1.6. Additional supplementation today ordered. Renal function continues improving, BUN 16, creatinine 0.94. Bicarb 31. Ambulating to bathroom with assistance, tolerated exertion well. Good diet intake, denies nausea, vomiting or diarrhea. Denies abdominal pain. Denies chest pain, palpitations or short ness of breath. Echo reporting normal LV function, EF 60-65%, [id number] right ventricular dilation. Johnson discontinued, post void residuals high, required reinsertion of Johnson catheter. Antibiotics as per ID, repeat blood cultures currently reporting no growth at 24 hours. Afebrile. Denies any chest pain, palpitations or shortness of breath. Denies any nausea vomiting, diarrhea or abdominal pain. Denies any lightheadedness, dizziness or focal deficits. Significant clinical improvement. Patient will be discharged home later today, in a stable condition with guarded prognosis pending labs, repeat blood cultures at 48 hours continue reporting no growth, final DC recommendations/antibiotics and clearance per ID as well as nephrology. Patient to follow-up with urology, Dr. Rosado in 1 week. The impression and plan of care has been dictated as directed. : I performed a history and examination of this patient, discussed the same with the dictator. I agree with the dictator's note ,documented as a scribe. Any additional findings or plans will be noted. Patient Condition at Discharge: Stable Plan - Discharge Summary Discharge Rx Participant: No New Discharge Prescriptions: New Magnesium Oxide [Mag-Ox] 400 mg PO BID #0 tab Apixaban [Eliquis] 2.5 mg PO BID #60 tab polyethylene glycoL 3350 [Miralax] 17 gm PO DAILY packet amLODIPine [Norvasc] 5 mg PO BID #30 tab Continue Atorvastatin Calcium [Lipitor] 20 mg PO HS Timolol 0.5% Ophth Soln [Timoptic 0.5% Ophth Soln] 1 drop RIGHT EYE TID Donepezil [Aricept] 5 mg PO BID Memantine [Namenda] 10 mg PO BID oxyBUTYnin chloride [oxyBUTYnin chloride ER] 5 mg PO DAILY Escitalopram [Lexapro] 10 mg PO DAILY Mirabegron [Myrbetriq] 50 mg PO DAILY Changed Ketoconazole 2% Cream [Nizoral 2%] 1 applic TOPICAL BID PRN #0 PRN Reason: Rash Discontinued Lisinopril-Hctz 20-25 mg [Zestoretic 20-25] 1 tab PO DAILY Apixaban [Eliquis] 5 mg PO BID #60 tab Discharge Medication List Atorvastatin Calcium [Lipitor] 20 mg PO HS 05/06/20 [History] Timolol 0.5% Ophth Soln [Timoptic 0.5% Ophth Soln] 1 drop RIGHT EYE TID 05/06/20 [History] Donepezil [Aricept] 5 mg PO BID 06/23/22 [History] Escitalopram [Lexapro] 10 mg PO DAILY 06/23/22 [History] Memantine [Namenda] 10 mg PO BID 11/07/22 [History] Mirabegron [Myrbetriq] 50 mg PO DAILY 11/07/22 [History] oxyBUTYnin chloride [oxyBUTYnin chloride ER] 5 mg PO DAILY 11/07/22 [History] Apixaban [Eliquis] 2.5 mg PO BID #60 tab 11/12/22 [Rx] Ketoconazole 2% Cream [Nizoral 2%] 1 applic TOPICAL BID PRN #0 11/12/22 [Rx] Magnesium Oxide [Mag-Ox] 400 mg PO BID #0 tab 11/12/22 [Rx] amLODIPine [Norvasc] 5 mg PO BID #30 tab 11/12/22 [Rx] polyethylene glycoL 3350 [Miralax] 17 gm PO DAILY packet 11/12/22 [Rx] Follow up Appointment(s)/Referral(s): Joseph Rosado MD [STAFF PHYSICIAN] - 1 Week Naz Ruby DO [Primary Care Provider] - 3 Days [facility], [NON-STAFF] - 1 Week Ambulatory/Diagnostic Orders: Complete Blood Count w/diff [LAB.AMB] Time Frame: 3 Days, Location: None Selected Activity/Diet/Wound Care/Special Instructions: Zestoretic on hold . leave johnson in;high PVRs last night requiring reinsertion of johnson Discharge Disposition: HOME WITH HOME HEALTH SERVICES
[2022-11-12] MEDS ORDERED: POTASSIUM CHLORIDE ER 20 MEQ TAB.ER PO STA (11:28)
[2022-11-12] MEDS ORDERED: hydrALAZINE HCL 20 MG/ML 1 ML VIAL IVP PRN (11:33)
--- NOTE | 2022-11-12 11:33 | P.PN ---
Subjective Patient is seen in follow-up for acute kidney injury. Renal function at baseline. Nonoliguric. Has Lama catheter. No vomiting or diarrhea. Sitting up in chair. No active complaints. Vital signs are stable. General: No acute distress. HEENT: Head exam is unremarkable. LUNGS: No audible rhonchi or wheezes. HEART: Rate and Rhythm are regular. ABDOMEN: Nontender. EXTREMITITES: No edema. Objective - Vital Signs Vital signs: Vital Signs Temp 98.2 F 11/12/22 07:33 Pulse 70 11/12/22 07:33 Resp 16 11/12/22 07:33 BP 153/72 11/12/22 07:33 Pulse Ox 96 11/12/22 07:33 FiO2 Intake & Output 11/11/22 11/12/22 11/12/22 18:59 06:59 18:59 Output Total 1050 2022 Balance -1049 Weight 93.894 kg Output: Urine 1050 1500 Uretheral (Lama) 350 Post Void Residual 523 Other: Voiding Method Indwelling Catheter Urinal Indwelling Catheter # Voids 1 # Bowel Movements 1 - Labs CBC & Chem 7: 11/10/22 06:56 11/12/22 06:02 Labs: Abnormal Lab Results - Last 24 Hours (Table) 11/11/22 11/11/22 11/11/22 Range/Units 12:10 17:08 20:09 Glucose (70-110) mg/dL POC Glucose (mg/dL) 175 H 167 H 194 H (70-110) mg/dL Calcium (8.7-10.3) mg/dL 11/12/22 11/12/22 Range/Units 06:02 07:36 Glucose 142 H (70-110) mg/dL POC Glucose (mg/dL) 146 H (70-110) mg/dL Calcium 8.1 L (8.7-10.3) mg/dL Microbiology - Last 24 Hours (Table) 11/10/22 06:56 Blood Culture - Preliminary Blood Assessment and Plan Plan: Assessment: 1. Acute kidney injury injury to urinary retention. Renal function near baseline. 2. Urinary retention with history of BPH. Has Lama catheter. On Flomax. Urology following. 3. Pseudomonas bacteremia and UTI on antibiotics. ID following. 4. Benign hypertension. Dose of amlodipine increase 11/11/2022. 5. Mild volume overload status post IV Lasix this admission. 6. Hypokalemia from diuresis. Replaced. Improved. 7. Mild hypomagnesemia from poor intake and diuresis. Being replaced. On oral magnesium oxide. Plan: Encourage oral intake. Avoid nephrotoxins. Follow-up outpatient in 1-2 weeks post discharge.
[2022-11-12] MEDS ORDERED: MAGNESIUM SULFATE-D5W PMX 1 GM in DEXTROSE/WATER 1 100ML.BAG IVPB ONE (12:00)
[2022-11-12 13:47] LABS: Glucose,Whole Blood 168 mg/dL (70-110)
[2022-11-12 17:19] LABS: Glucose,Whole Blood 154 mg/dL (70-110)
[2022-11-12 19:53] LABS: Glucose,Whole Blood 215 mg/dL (70-110)
[2022-11-12] MEDS: APIXABAN 5 MG TAB PO SCH (20:35)
[2022-11-12] MEDS: ATORVASTATIN 20 MG TAB PO SCH (20:35)
--- NOTE | 2022-11-12 22:37 | P.PN ---
Subjective Progress Note Date: 11/12/22 Principal diagnosis: Pseudomonas urinary tract infection and bacteremia Patient is a 82-year-old male with multiple comorbidities presented to the hospital with mental status changes and weakness patient did have evidence of complicated UTI with evidence of pseudomonas bacteremia On today's evaluation that is 11/12/2022 patient remains to be afebrile patient is breathing comfortably on room air patient denies having any chest pain or shortness of breath or cough Lama catheter has to be reinserted as the patient was unable to urinate Objective - Vital Signs Vital signs: Vital Signs Temp 98.1 F 11/12/22 11:38 Pulse 68 11/12/22 11:38 Resp 18 11/12/22 11:38 BP 153/64 11/12/22 11:38 Pulse Ox 97 11/12/22 11:38 FiO2 Intake & Output 11/11/22 11/12/22 11/12/22 18:59 06:59 18:59 Output Total 1050 2022 Balance -1049 Weight 93.894 kg Output: Urine 1050 1500 Uretheral (Lama) 350 Post Void Residual 523 Other: Voiding Method Indwelling Catheter Urinal Indwelling Catheter # Voids 1 # Bowel Movements 1 - Exam GENERAL DESCRIPTION: An elderly male lying in bed in no distress RESPIRATORY SYSTEM: Unlabored breathing , decreased breath sounds at bases HEART: S1 S2 regular rate and rhythm , ABDOMEN: Soft , no tenderness EXTREMITIES: No edema feet - Labs CBC & Chem 7: 11/10/22 06:56 11/12/22 06:02 Labs: Abnormal Lab Results - Last 24 Hours (Table) 11/11/22 11/11/22 11/12/22 Range/Units 17:08 20:09 06:02 Glucose 142 H (70-110) mg/dL POC Glucose (mg/dL) 167 H 194 H (70-110) mg/dL Calcium 8.1 L (8.7-10.3) mg/dL 11/12/22 Range/Units 07:36 Glucose (70-110) mg/dL POC Glucose (mg/dL) 146 H (70-110) mg/dL Calcium (8.7-10.3) mg/dL Microbiology - Last 24 Hours (Table) 11/10/22 06:56 Blood Culture - Preliminary Blood Assessment and Plan (1) Bacteremia due to Pseudomonas Current Visit: Yes Status: Acute Code(s): R78.81 - BACTEREMIA; B96.5 - PSEUDOMONAS (MALLEI) CAUSING DISEASES CLASSD ELSWHR SNOMED Code(s): 0839297207 (2) UTI (urinary tract infection) Current Visit: Yes Status: Acute Code(s): N39.0 - URINARY TRACT INFECTION, SITE NOT SPECIFIED SNOMED Code(s): 34455065 Plan: 1patient presented hospital with sepsis in this patient who did have a fever elevated white count elevated lactic acid source likely complicated urinary tract infection, Patient with evidence of Pseudomonas bacteremia likely secondary urinary source ultrasound was negative for any hydronephrosis 2-blood cultures has been repeated document clearance of his bacteremia 3-Patient seem to have shown clinical improvement patient repeat blood culture has been negative so far, currently on Zosyn that can be transitioned to oral Cipro on discharge x10 days and close outpatient follow-up Time with Patient: Less than 30
[2022-11-13] MEDS: PIPERACILLIN-TAZOBACTAM 3.375 GM in SODIUM CHLORIDE 0.9% 100 ML IVPB SCH ×3 (03:29→21:12)
[2022-11-13 07:16] LABS: Glucose,Whole Blood 134 mg/dL (70-110)
[2022-11-13] MEDS: INSULIN ASPART (NovoLOG) 100 UNIT/ML VIAL SQ SCH ×4 (07:23→22:59)
[2022-11-13] MEDS: FAMOTIDINE 20 MG/2 ML VIAL IV SCH (08:59)
[2022-11-13] MEDS: APIXABAN 5 MG TAB PO SCH ×2 (08:59→21:13)
[2022-11-13] MEDS: TAMSULOSIN 0.4 MG CAP.ER.24H PO SCH (08:59)
[2022-11-13] MEDS: DONEPEZIL 5 MG TAB PO SCH ×2 (08:59→21:13)
[2022-11-13] MEDS: ESCITALOPRAM 10 MG TAB PO SCH (08:59)
[2022-11-13] MEDS: MAGNESIUM OXIDE 400 MG TAB PO SCH ×2 (08:59→21:13)
[2022-11-13] MEDS: amLODIPine 5 MG TAB PO SCH ×2 (08:59→21:13)
[2022-11-13] MEDS: MEMANTINE 10 MG TAB PO SCH ×2 (08:59→21:13)
[2022-11-13] MEDS: TIMOLOL 0.5% OPHTH DROPS 5 ML BTL RIGHT EYE SCH ×3 (09:00→21:13)
[2022-11-13] MEDS: polyethylene glycoL 3350 17 GM POWD.PACK PO SCH (09:00)
[2022-11-13 11:51] LABS: Glucose,Whole Blood 200 mg/dL (70-110)
--- NOTE | 2022-11-13 13:27 | P.PN ---
Subjective Progress Note Date: 11/13/22 This is a pleasant 82-year-old gentleman with baseline dementia brought in by family secondary to increased fatigue and confusion .Lama catheter placed for urinary retention .T-max 101.9, WBC decreased to 11.2, maintained on ceftriaxone IV. Continues on gentle IV fluid hydration with renal function improving, BUN 50, creatinine 2.19, bicarb 29. Lama catheter with significant sediment. Positive chills and shivering. Denies chest pain, palpitations or shortness of breath. 11/09/22 T-max 102.8. Denies sweats or chills .Blood cultures returned positive for pseudomonas aeruginosa, antibiotics adjusted to Zosyn. Creatinine/electrolytes pending. Positive diet intake. Denies abdominal pain, reports bowel movement yesterday. Denies diarrhea. Yesterday he had slipped, reports hitting the door, brain CT report no acute intracranial process. Denies lightheadedness dizziness or focal deficits. Denies headache. Denies chest pain, palpitations or shortness of breath. Maintaining O2 sats in the mid 90s on room air. Renal ultrasound reporting no evidence for hydronephrosis. Evaluated by urology, recommendations noted including outpatient follow-up as urinary retention may be the result of sacral neural modulation, which he underwent recently in June 2022. 11/10/2022 Patient apparently developed mild fluid overload yesterday afternoon accompanied by some generalized edema. IV fluids were discontinued and received a single dose of IV Lasix. This morning, laying flat in bed resting, no edema, denies chest pain, palpitations or shortness of breath. Maintaining O2 sats of 96% on room air.Denies nausea vomiting or diarrhea, no abdominal pain. Renal function continues to improve, creatinine decreased to 1. Potassium 2.8, magnesium 1.5, supplementation ordered. Telemetry sinus. Continues on Zosyn, T-max. 99.7. 11/11/2022 maintained on Zosyn. Repeat cultures in progress. Lama with clear urine. Afebrile. Magnesium and potassium improving after supplementation, 3.5 and 1.6. Additional supplementation today ordered. Renal function continues improving, BUN 16, creatinine 0.94. Bicarb 31. Ambulating to bathroom with assistance, tolerated exertion well. Good diet intake, denies nausea, vomiting or diarrhea. Denies abdominal pain. Denies chest pain, palpitations or shortness of breath. Echo reporting normal LV function, EF 60-65%, [id number] right ventricular dilation. 11/13. Patient seen and examined. Patient stated he does not feel well about going home today. AT the bedside, had questions about his newly diagnosed diabetes mellitus, wanted some education regarding insulin REVIEW OF SYSTEMS: CONSTITUTIONAL: No fever, no malaise,. CARDIOVASCULAR: No chest pain, no palpitations, no syncope. PULMONARY: No shortness of breath, no cough, GASTROINTESTINAL: No diarrhea, no nausea, no vomiting, no abdominal pain. NEUROLOGICAL: No headaches, no weakness, PHYSICAL EXAMINATION: GENERAL: The patient is alert and oriented x3, not in any acute distress. Well developed, well nourished. HEENT: Pupils are round and equally reacting to light. EOMI. No scleral icterus. No conjunctival pallor. Normocephalic, atraumatic. No pharyngeal erythema. No thyromegaly. CARDIOVASCULAR: S1 and S2 present. No murmurs, rubs, or gallops. PULMONARY: Chest is clear to auscultation, no wheezing or crackles. ABDOMEN: Soft, nontender, nondistended, normoactive bowel sounds. No palpable organomegaly. MUSCULOSKELETAL: No joint swelling or deformity. EXTREMITIES: No cyanosis, clubbing, or pedal edema. NEUROLOGICAL: Gross neurological examination did not reveal any focal deficits. SKIN: No rashes. 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 fib History of CVA, TIA Hypokalemia Hypomagnesemia Monitor vital signs Monitor CBC Monitor CMP Continue telemetry monitoring Continue IV Zosyn Continue rest of home meds Currently on sliding scale insulin, can be switched to oral hypoglycemics at discharge Follow-up in ID recs Follow-up in nephrology Objective - Vital Signs Vital signs: Vital Signs Temp 98.2 F 11/13/22 07:08 Pulse 75 11/13/22 07:08 Resp 16 11/13/22 07:08 BP 182/75 06/24/23 07:08 Pulse Ox 98 11/13/22 07:08 FiO2 Intake & Output 11/12/22 11/13/22 11/13/22 18:59 06:59 18:59 Output Total 1100 1175 Balance -1100 -1175 Weight 93.894 kg Output: Urine 1100 1175 Other: Voiding Method Indwelling Catheter Indwelling Catheter Indwelling Catheter # Bowel Movements 1 1 - Labs CBC & Chem 7: 11/10/22 06:56 11/12/22 06:02 Labs: Abnormal Lab Results - Last 24 Hours (Table) 11/12/22 11/12/22 11/12/22 Range/Units 13:42 17:15 19:50 POC Glucose (mg/dL) 168 H 154 H 215 H (70-110) mg/dL 11/13/22 Range/Units 07:15 POC Glucose (mg/dL) 134 H (70-110) mg/dL Microbiology - Last 24 Hours (Table) 11/10/22 06:56 Blood Culture - Preliminary Blood
[2022-11-13 13:43] LABS: Blood Urea Nitrogen 16.7 mg/dL (9.0-27.0); Calcium 8.5 mg/dL (8.7-10.3); Chloride 105 mmol/L (96-109); Glucose 137 mg/dL (70-110); Magnesium 1.9 mg/dL (1.5-2.4); Potassium 4.5 mmol/L (3.5-5.5); Sodium 140 mmol/L (135-145)
[2022-11-13 17:22] LABS: Glucose,Whole Blood 160 mg/dL (70-110)
[2022-11-13 21:01] LABS: Glucose,Whole Blood 165 mg/dL (70-110)
[2022-11-13] MEDS: ATORVASTATIN 20 MG TAB PO SCH (21:13)
[2022-11-14] MEDS: PIPERACILLIN-TAZOBACTAM 3.375 GM in SODIUM CHLORIDE 0.9% 100 ML IVPB SCH ×3 (04:10→20:34)
[2022-11-14 07:39] LABS: Glucose,Whole Blood 140 mg/dL (70-110)
[2022-11-14] MEDS: INSULIN ASPART (NovoLOG) 100 UNIT/ML VIAL SQ SCH ×4 (07:42→20:36)
[2022-11-14] MEDS: APIXABAN 5 MG TAB PO SCH ×2 (08:16→20:35)
[2022-11-14] MEDS: amLODIPine 5 MG TAB PO SCH ×2 (08:16→20:35)
[2022-11-14] MEDS: FAMOTIDINE 20 MG/2 ML VIAL IV SCH (08:16)
[2022-11-14] MEDS: MAGNESIUM OXIDE 400 MG TAB PO SCH ×2 (08:16→20:36)
[2022-11-14] MEDS: TAMSULOSIN 0.4 MG CAP.ER.24H PO SCH (08:16)
[2022-11-14] MEDS: ESCITALOPRAM 10 MG TAB PO SCH (08:17)
[2022-11-14] MEDS: TIMOLOL 0.5% OPHTH DROPS 5 ML BTL RIGHT EYE SCH ×3 (08:17→20:36)
[2022-11-14] MEDS: MEMANTINE 10 MG TAB PO SCH ×2 (08:17→20:35)
[2022-11-14] MEDS: polyethylene glycoL 3350 17 GM POWD.PACK PO SCH (08:17)
[2022-11-14] MEDS: DONEPEZIL 5 MG TAB PO SCH ×2 (08:17→20:35)
[2022-11-14 12:01] LABS: Glucose,Whole Blood 151 mg/dL (70-110)
--- NOTE | 2022-11-14 14:35 | P.PN ---
Subjective Progress Note Date: 11/14/22 This is a pleasant 82-year-old gentleman with baseline dementia brought in by family secondary to increased fatigue and confusion .Lama catheter placed for urinary retention .T-max 101.9, WBC decreased to 11.2, maintained on ceftriaxone IV. Continues on gentle IV fluid hydration with renal function improving, BUN 50, creatinine 2.19, bicarb 29. Lama catheter with significant sediment. Positive chills and shivering. Denies chest pain, palpitations or shortness of breath. 11/09/22 T-max 102.8. Denies sweats or chills .Blood cultures returned positive for pseudomonas aeruginosa, antibiotics adjusted to Zosyn. Creatinine/electrolytes pending. Positive diet intake. Denies abdominal pain, reports bowel movement yesterday. Denies diarrhea. Yesterday he had slipped, reports hitting the door, brain CT report no acute intracranial process. Denies lightheadedness dizziness or focal deficits. Denies headache. Denies chest pain, palpitations or shortness of breath. Maintaining O2 sats in the mid 90s on room air. Renal ultrasound reporting no evidence for hydronephrosis. Evaluated by urology, recommendations noted including outpatient follow-up as urinary retention may be the result of sacral neural modulation, which he underwent recently in June 2022. 11/10/2022 Patient apparently developed mild fluid overload yesterday afternoon accompanied by some generalized edema. IV fluids were discontinued and received a single dose of IV Lasix. This morning, laying flat in bed resting, no edema, denies chest pain, palpitations or shortness of breath. Maintaining O2 sats of 96% on room air.Denies nausea vomiting or diarrhea, no abdominal pain. Renal function continues to improve, creatinine decreased to 1. Potassium 2.8, magnesium 1.5, supplementation ordered. Telemetry sinus. Continues on Zosyn, T-max. 99.7. 11/11/2022 maintained on Zosyn. Repeat cultures in progress. Lama with clear urine. Afebrile. Magnesium and potassium improving after supplementation, 3.5 and 1.6. Additional supplementation today ordered. Renal function continues improving, BUN 16, creatinine 0.94. Bicarb 31. Ambulating to bathroom with assistance, tolerated exertion well. Good diet intake, denies nausea, vomiting or diarrhea. Denies abdominal pain. Denies chest pain, palpitations or shortness of breath. Echo reporting normal LV function, EF 60-65%, [id number] right ventricular dilation. 11/13. Patient seen and examined. Patient stated he does not feel well about going home today. AT the bedside, had questions about his newly diagnosed diabetes mellitus, wanted some education regarding insulin 11/14. Patient seen and examined. No acute issues overnight, patient started on glimepiride. at the bedside, was very concerned about one episode of loose stools that the patient had this morning, she described it as a blowout. Was not very keen to take the patient home wanted to discuss with Dr. Ruby before taking him home REVIEW OF SYSTEMS: CONSTITUTIONAL: No fever, no malaise,. CARDIOVASCULAR: No chest pain, no palpitations, no syncope. PULMONARY: No shortness of breath, no cough, GASTROINTESTINAL: No diarrhea, no nausea, no vomiting, no abdominal pain. NEUROLOGICAL: No headaches, no weakness, PHYSICAL EXAMINATION: GENERAL: The patient is alert and oriented x3, not in any acute distress. Well developed, well nourished. HEENT: Pupils are round and equally reacting to light. EOMI. No scleral icterus. No conjunctival pallor. Normocephalic, atraumatic. No pharyngeal erythema. No thyromegaly. CARDIOVASCULAR: S1 and S2 present. No murmurs, rubs, or gallops. PULMONARY: Chest is clear to auscultation, no wheezing or crackles. ABDOMEN: Soft, nontender, nondistended, normoactive bowel sounds. No palpable organomegaly. MUSCULOSKELETAL: No joint swelling or deformity. EXTREMITIES: No cyanosis, clubbing, or pedal edema. NEUROLOGICAL: Gross neurological examination did not reveal any focal deficits. SKIN: No rashes. 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 fib History of CVA, TIA Hypokalemia Hypomagnesemia Monitor vital signs Monitor CBC Monitor CMP Continue telemetry monitoring Continue IV Zosyn Continue rest of home meds Currently on sliding scale insulin, started glimepiride. Follow-up in ID recs Follow-up in nephrology Objective - Vital Signs Vital signs: Vital Signs Temp 98.1 F 11/14/22 07:35 Pulse 69 11/14/22 07:35 Resp 16 11/14/22 07:35 BP 154/74 11/14/22 07:35 Pulse Ox 97 11/14/22 07:35 FiO2 Intake & Output 11/13/22 11/14/22 11/14/22 18:59 06:59 18:59 Intake Total 1500 Output Total 1800 2500 Balance -1800 -1000 Intake: Oral 1500 Output: Urine 1800 2500 Other: Voiding Method Indwelling Catheter Indwelling Catheter # Bowel Movements 1 - Labs CBC & Chem 7: 11/10/22 06:56 11/13/22 07:00 Labs: Abnormal Lab Results - Last 24 Hours (Table) 11/13/22 11/13/22 11/13/22 Range/Units 07:00 11:48 17:19 Glucose 137 H (70-110) mg/dL POC Glucose (mg/dL) 200 H 160 H (70-110) mg/dL Calcium 8.5 L (8.7-10.3) mg/dL 11/13/22 11/14/22 Range/Units 21:00 07:38 Glucose (70-110) mg/dL POC Glucose (mg/dL) 165 H 140 H (70-110) mg/dL Calcium (8.7-10.3) mg/dL Microbiology - Last 24 Hours (Table) 11/10/22 06:56 Blood Culture - Preliminary Blood
--- NOTE | 2022-11-14 17:19 | P.PN ---
Subjective Progress Note Date: 11/13/22 Principal diagnosis: Pseudomonas urinary tract infection and bacteremia Patient is a 82-year-old male with multiple comorbidities presented to the hospital with mental status changes and weakness patient did have evidence of complicated UTI with evidence of pseudomonas bacteremia On today's evaluation that is 11/13/2022 patient continues to be afebrile patient is breathing comfortably on room air patient denies having any chest pain or shortness of breath or cough, patient complaining of feeling weak today Objective - Vital Signs Vital signs: Vital Signs Temp 97.8 F 11/13/22 11:25 Pulse 64 11/13/22 11:25 Resp 16 11/13/22 11:25 BP 137/69 11/13/22 11:25 Pulse Ox 97 11/13/22 11:25 FiO2 Intake & Output 11/12/22 11/13/22 11/13/22 18:59 06:59 18:59 Output Total 1100 1175 800 Balance -1100 -1175 -800 Weight 93.894 kg Output: Urine 1100 1175 800 Other: Voiding Method Indwelling Catheter Indwelling Catheter Indwelling Catheter # Bowel Movements 1 1 1 - Exam GENERAL DESCRIPTION: An elderly male lying in bed in no distress RESPIRATORY SYSTEM: Unlabored breathing , decreased breath sounds at bases HEART: S1 S2 regular rate and rhythm , ABDOMEN: Soft , no tenderness EXTREMITIES: No edema feet - Labs CBC & Chem 7: 11/10/22 06:56 11/13/22 07:00 Labs: Abnormal Lab Results - Last 24 Hours (Table) 11/12/22 11/12/22 11/12/22 Range/Units 13:42 17:15 19:50 Glucose (70-110) mg/dL POC Glucose (mg/dL) 168 H 154 H 215 H (70-110) mg/dL Calcium (8.7-10.3) mg/dL 11/13/22 11/13/22 11/13/22 Range/Units 07:00 07:15 11:48 Glucose 137 H (70-110) mg/dL POC Glucose (mg/dL) 134 H 200 H (70-110) mg/dL Calcium 8.5 L (8.7-10.3) mg/dL Microbiology - Last 24 Hours (Table) 11/10/22 06:56 Blood Culture - Preliminary Blood Assessment and Plan (1) Bacteremia due to Pseudomonas Current Visit: Yes Status: Acute Code(s): R78.81 - BACTEREMIA; B96.5 - PSEUDOMONAS (MALLEI) CAUSING DISEASES CLASSD ELSWHR SNOMED Code(s): 7346117958 (2) UTI (urinary tract infection) Current Visit: Yes Status: Acute Code(s): N39.0 - URINARY TRACT INFECTION, SITE NOT SPECIFIED SNOMED Code(s): 94341480 Plan: 1patient presented hospital with sepsis in this patient who did have a fever elevated white count elevated lactic acid source likely complicated urinary tract infection, Patient with evidence of Pseudomonas bacteremia likely secondary urinary source ultrasound was negative for any hydronephrosis 2-blood cultures has been repeated and has been negative so far 3-Patient seem to have shown clinical improvement patient to continue Zosyn that can be transitioned to oral Cipro on discharge x10 days and close outpatient follow-up, discuss with the medical team Time with Patient: Less than 30
--- NOTE | 2022-11-14 17:20 | P.PN ---
Subjective Progress Note Date: 11/14/22 Principal diagnosis: Pseudomonas urinary tract infection and bacteremia Patient is a 82-year-old male with multiple comorbidities presented to the hospital with mental status changes and weakness patient did have evidence of complicated UTI with evidence of pseudomonas bacteremia On today's evaluation that is 11/14/2022 patient remains to be afebrile patient is breathing comfortably on room air patient denies having any chest pain or shortness of breath or cough, patient feeling better today no new symptoms Objective - Vital Signs Vital signs: Vital Signs Temp 97.8 F 11/14/22 11:25 Pulse 61 11/14/22 11:25 Resp 16 11/14/22 11:25 BP 148/69 11/14/22 11:25 Pulse Ox 96 11/14/22 11:25 FiO2 Intake & Output 11/13/22 11/14/22 11/14/22 18:59 06:59 18:59 Intake Total 1500 Output Total 1800 2500 Balance -1800 -1000 Intake: Oral 1500 Output: Urine 1800 2500 Other: Voiding Method Indwelling Catheter Indwelling Catheter Indwelling Catheter # Bowel Movements 1 1 - Exam GENERAL DESCRIPTION: An elderly male lying in bed in no distress RESPIRATORY SYSTEM: Unlabored breathing , decreased breath sounds at bases HEART: S1 S2 regular rate and rhythm , ABDOMEN: Soft , no tenderness EXTREMITIES: No edema feet - Labs CBC & Chem 7: 11/10/22 06:56 11/13/22 07:00 Labs: Abnormal Lab Results - Last 24 Hours (Table) 11/13/22 11/13/22 11/14/22 Range/Units 17:19 21:00 07:38 POC Glucose (mg/dL) 160 H 165 H 140 H (70-110) mg/dL 11/14/22 Range/Units 11:55 POC Glucose (mg/dL) 151 H (70-110) mg/dL Assessment and Plan (1) Bacteremia due to Pseudomonas Current Visit: Yes Status: Acute Code(s): R78.81 - BACTEREMIA; B96.5 - [facility]UD[facility]ON[facility] Code(s): 9129556573 (2) UTI (urinary tract infection) Current Visit: Yes Status: Acute Code(s): N39.0 - URINARY TRACT INFECTION, SITE NOT SPECIFIED SNOMED Code(s): 94813437 Plan: 1patient presented hospital with sepsis in this patient who did have a fever elevated white count elevated lactic acid source likely complicated urinary tract infection, Patient with evidence of Pseudomonas bacteremia likely secondary urinary source ultrasound was negative for any hydronephrosis 2-blood cultures has been repeated and has been negative so far 3-Patient has shown shown clinical improvement currently being treated with Zosy n that can be transitioned to oral Cipro on discharge x10 days and close outpatient follow-up Time with Patient: Less than 30
[2022-11-14 17:28] LABS: Glucose,Whole Blood 169 mg/dL (70-110)
[2022-11-14 20:15] LABS: Glucose,Whole Blood 320 mg/dL (70-110)
[2022-11-14] MEDS: ATORVASTATIN 20 MG TAB PO SCH (20:35)
[2022-11-15 01:19] VITALS: RESP 16
[2022-11-15] MEDS: PIPERACILLIN-TAZOBACTAM 3.375 GM in SODIUM CHLORIDE 0.9% 100 ML IVPB SCH (03:36)
[2022-11-15 07:28] LABS: Glucose,Whole Blood 127 mg/dL (70-110)
[2022-11-15] MEDS ORDERED: GLIMEPIRIDE 1 MG TAB PO SCH (07:30)
[2022-11-15] MEDS: INSULIN ASPART (NovoLOG) 100 UNIT/ML VIAL SQ SCH (07:33)
[2022-11-15 08:03] VITALS: BP 151/65; PULSE 68; TEMP 98.3
[2022-11-15] MEDS: TAMSULOSIN 0.4 MG CAP.ER.24H PO SCH (08:35)
[2022-11-15] MEDS: APIXABAN 5 MG TAB PO SCH (08:35)
[2022-11-15] MEDS: amLODIPine 5 MG TAB PO SCH (08:35)
[2022-11-15] MEDS: FAMOTIDINE 20 MG/2 ML VIAL IV SCH (08:35)
[2022-11-15] MEDS: MAGNESIUM OXIDE 400 MG TAB PO SCH (08:35)
[2022-11-15] MEDS: ESCITALOPRAM 10 MG TAB PO SCH (08:36)
[2022-11-15] MEDS: MEMANTINE 10 MG TAB PO SCH (08:36)
[2022-11-15] MEDS: TIMOLOL 0.5% OPHTH DROPS 5 ML BTL RIGHT EYE SCH (08:37)
[2022-11-15] MEDS: DONEPEZIL 5 MG TAB PO SCH (08:37)
--- NOTE | 2022-11-15 09:04 | P.DS ---
Providers Date of admission: 11/07/22 12:05 Attending physician: Clifford Ruby MD Consults: 11/07/22 13:06 Consult Physician Urgent Consulting Provider: Eric Sauer Consult Reason/Comments: urinary retention Do you want consulting provider notified?: Yes Consult Physician Urgent Consulting Provider: Sharonda Salinas Consult Reason/Comments: alyssa Do you want consulting provider notified?: Yes 11/09/22 11:59 Consult Physician Routine Consulting Provider: Francisco Pryor Consult Reason/Comments: Bacteremia Do you want consulting provider notified?: Yes Primary care physician: [facility] Course: This is a pleasant 82-year-old gentleman with baseline dementia brought in by family secondary to increased fatigue and confusion .Johnson catheter placed for urinary retention .T-max 101.9, WBC decreased to 11.2, maintained on ceftriaxone IV. Continues on gentle IV fluid hydration with renal function improving, BUN 50, creatinine 2.19, bicarb 29. Johnson catheter with significant sediment. Positive chills and shivering. Denies chest pain, palpitations or shortness of breath. 11/09/22 T-max 102.8. Denies sweats or chills .Blood cultures returned positive for pseudomonas aeruginosa, antibiotics adjusted to Zosyn. Creatinine/electrolytes pending. Positive diet intake. Denies abdominal pain, reports bowel movement yesterday. Denies diarrhea. Yesterday he had slipped, reports hitting the door, brain CT report no acute intracranial process. Denies lightheadedness dizziness or focal deficits. Denies headache. Denies chest pain, palpitations or shortness of breath. Maintaining O2 sats in the mid 90s on room air. Renal ultrasound reporting no evidence for hydronephrosis. Evaluated by urology, recommendations noted including outpatient follow-up as urinary retention may be the result of sacral neural modulation, which he underwent recently in June 2022. 11/10/2022 Patient apparently developed mild fluid overload yesterday afternoon accompanied by some generalized edema. IV fluids were discontinued and received a single dose of IV Lasix. This morning, laying flat in bed resting, no edema, denies chest pain, palpitations or shortness of breath. Maintaining O2 sats of 96% on room air.Denies nausea vomiting or diarrhea, no abdominal pain. Renal function continues to improve, creatinine decreased to 1. Potassium 2.8, magnesium 1.5, supplementation ordered. Telemetry sinus. Continues on Zosyn, T-max. 99.7. 11/11/2022 maintained on Zosyn. Repeat cultures in progress. Johnson with clear urine. Afebrile. Magnesium and potassium improving after supplementation, 3.5 and 1.6. Additional supplementation today ordered. Renal function continues improving, BUN 16, creatinine 0.94. Bicarb 31. Ambulating to bathroom with assistance, tolerated exertion well. Good diet intake, denies nausea, vomiting or diarrhea. Denies abdominal pain. Denies chest pain, palpitations or shortness of breath. Echo reporting normal LV function, EF 60-65%, mild-to- moderate right ventricular dilation. 11/13. Patient seen and examined. Patient stated he does not feel well about going home today. AT the bedside, had questions about his newly diagnosed diabetes mellitus, wanted some education regarding insulin 11/14. Patient seen and examined. No acute issues overnight, patient started on glimepiride. at the bedside, was very concerned about one episode of loose stools that the patient had this morning, she described it as a blowout. Was not very keen to take the patient home 11/15. Pt feeling well, no fever, chills, sweats. His blood culture is negative at 5 days. ID recommending cipro on discharge. Pt discharged in stable condition and recommended to follow closely with his PCP. Patient Condition at Discharge: Stable Plan - Discharge Summary Discharge Rx Participant: No New Discharge Prescriptions: New Magnesium Oxide [Mag-Ox] 400 mg PO BID #0 tab Ciprofloxacin HCl [Cipro] 500 mg PO Q12HR 5 Days #10 tab Apixaban [Eliquis] 2.5 mg PO BID #60 tab polyethylene glycoL 3350 [Miralax] 17 gm PO DAILY packet amLODIPine [Norvasc] 5 mg PO BID #30 tab Continue Atorvastatin Calcium [Lipitor] 20 mg PO HS Timolol 0.5% Ophth Soln [Timoptic 0.5% Ophth Soln] 1 drop RIGHT EYE TID Donepezil [Aricept] 5 mg PO BID Memantine [Namenda] 10 mg PO BID oxyBUTYnin chloride [oxyBUTYnin chloride ER] 5 mg PO DAILY Escitalopram [Lexapro] 10 mg PO DAILY Mirabegron [Myrbetriq] 50 mg PO DAILY Changed Ketoconazole 2% Cream [Nizoral 2%] 1 applic TOPICAL BID PRN #0 PRN Reason: Rash Discontinued Lisinopril-Hctz 20-25 mg [Zestoretic 20-25] 1 tab PO DAILY Apixaban [Eliquis] 5 mg PO BID #60 tab Discharge Medication List Atorvastatin Calcium [Lipitor] 20 mg PO HS 05/06/20 [History] Timolol 0.5% Ophth Soln [Timoptic 0.5% Ophth Soln] 1 drop RIGHT EYE TID 05/06/20 [History] Donepezil [Aricept] 5 mg PO BID 06/23/22 [History] Escitalopram [Lexapro] 10 mg PO DAILY 06/23/22 [History] Memantine [Namenda] 10 mg PO BID 11/07/22 [History] Mirabegron [Myrbetriq] 50 mg PO DAILY 11/07/22 [History] oxyBUTYnin chloride [oxyBUTYnin chloride ER] 5 mg PO DAILY 11/07/22 [History] Apixaban [Eliquis] 2.5 mg PO BID #60 tab 11/12/22 [Rx] Ketoconazole 2% Cream [Nizoral 2%] 1 applic TOPICAL BID PRN #0 11/12/22 [Rx] Magnesium Oxide [Mag-Ox] 400 mg PO BID #0 tab 11/12/22 [Rx] amLODIPine [Norvasc] 5 mg PO BID #30 tab 11/12/22 [Rx] polyethylene glycoL 3350 [Miralax] 17 gm PO DAILY packet 11/12/22 [Rx] Ciprofloxacin HCl [Cipro] 500 mg PO Q12HR 5 Days #10 tab 11/15/22 [Rx] Follow up Appointment(s)/Referral(s): Joseph Rosado MD [STAFF PHYSICIAN] - 11/24/22 8:00 am Naz Ruby DO [Primary Care Provider] - 11/15/22 2:30 pm (appointment is at the [place] office with Marcie Wright NP) [facility], [NON-STAFF] - 1 Week Ambulatory/Diagnostic Orders: Complete Blood Count w/diff [LAB.AMB] Time Frame: 3 Days, Location: None Selected Patient Instructions/Handouts: Urinary Tract Infection in Men (DC), Johnson Catheter Placement and Care (DC) Activity/Diet/Wound Care/Special Instructions: Zestoretic on hold . leave johnson in;high PVRs last night requiring reinsertion of johnson Discharge Disposition: HOME WITH HOME HEALTH SERVICES
== END 2022-11-15 11:13 | disposition home health service (06) | DRG 871 ==
LOC: EC 09:54 → 5NMEDONC 12:05
PROVIDERS: ADMIT Family Medicine; ATTEND Family Medicine
DX: A41.52 Sepsis due to Pseudomonas (principal); G93.41 Metabolic encephalopathy; N39.0 Urinary tract infection, site not specified; N17.9 Acute kidney failure, unspecified; R65.20 Severe sepsis without septic shock; E78.5 Hyperlipidemia, unspecified; E83.42 Hypomagnesemia; G47.33 Obstructive sleep apnea (adult) (pediatric); E87.6 Hypokalemia; E11.9 Type 2 diabetes mellitus without complications; H40.9 Unspecified glaucoma; R32 Unspecified urinary incontinence; H91.90 Unspecified hearing loss, unspecified ear; F03.90 Unspecified dementia, unspecified severity, without behavioral disturbance, psychotic disturbance, mood disturbance, and anxiety; I10 Essential (primary) hypertension; I48.0 Paroxysmal atrial fibrillation; Z79.01 Long term (current) use of anticoagulants; N40.1 Benign prostatic hyperplasia with lower urinary tract symptoms; N32.81 Overactive bladder; Z20.822 Contact with and (suspected) exposure to COVID-19; Z91.81 History of falling; Z79.899 Other long term (current) drug therapy; Z86.73 Personal history of transient ischemic attack (TIA), and cerebral infarction without residual deficits; Z82.3 Family history of stroke; Z82.49 Family history of ischemic heart disease and other diseases of the circulatory system
CPT/HCPCS: 36415; 70450; 71046; 76770; 80048; 80053; 81001; 83036; 83605; 83735; 83880; 84132; 84484; 85025; 85610; 85730; 87040; 87077; 87086; 87186; 87636; 93005; 93306

== ENCOUNTER 2022-12-08 17:28 | Emergency (ER) | payer MEDICARE ==
[2022-12-08 18:04] VITALS: RESP 18
--- NOTE | 2022-12-08 18:28 | ED ---
General Adult HPI - General Source: patient, family Mode of arrival: ambulatory Limitations: no limitations <Ronald Villagran - Last Filed: 12/08/22 18:28> - General Source: RN notes reviewed, old records reviewed - History of Present Illness -: hour(s) (8) Location: abdomen (suprapubic) Severity scale (1-10): 0 Quality: other (full) Consistency: constant Improves with: none Associated Symptoms: denies other symptoms Treatments Prior to Arrival: other (johnson catheter removal 1100 at home) <Trung Perkins - Last Filed: 12/08/22 22:07> - General Chief complaint: Urogenital Stated complaint: Urinating Problem Time Seen by Provider: 12/08/22 19:00 - History of Present Illness Initial comments: 82-year-old male with a past medical history significant for urinary retention presents to the ED for chief complaint urinary retention. Patient had a catheter in for approximately 3 weeks due to urinary retention. He was instructed to remove this catheter prior to seeing urology today. Catheter was removed at 11. Since then has been unable to urinate. Quicknote portion performed Signed Ronald Villagran PA-C (Ronald Villagran) Nontoxic-appearing 82-year-old male presents to the emergency room with urinary retention. Patient's family member states she removed the Johnson catheter as directed by the urologist at 11:00 and has not been able to urinate since. Patient denies any fevers or chills. No nausea or vomiting. Denies any pain, states fullness of the bladder only. (Trung Perkins) - Related Data Home Medications Medication Instructions Recorded Confirmed Atorvastatin Calcium [Lipitor] 20 mg PO HS 05/06/20 11/07/22 Timolol 0.5% Ophth Soln [Timoptic 1 drop RIGHT EYE TID 05/06/20 11/07/22 0.5% Ophth Soln] Donepezil [Aricept] 5 mg PO BID 06/23/22 11/07/22 Escitalopram [Lexapro] 10 mg PO DAILY 06/23/22 11/07/22 Memantine [Namenda] 10 mg PO BID 11/07/22 11/07/22 Mirabegron [Myrbetriq] 50 mg PO DAILY 11/07/22 11/07/22 oxyBUTYnin chloride [oxyBUTYnin 5 mg PO DAILY 11/07/22 11/07/22 chloride ER] Previous Rx's Medication Instructions Recorded Apixaban [Eliquis] 2.5 mg PO BID #60 tab 11/12/22 Ketoconazole 2% Cream [Nizoral 2%] 1 applic TOPICAL BID PRN #0 11/12/22 Magnesium Oxide [Mag-Ox] 400 mg PO BID #0 tab 11/12/22 amLODIPine [Norvasc] 5 mg PO BID #30 tab 11/12/22 polyethylene glycoL 3350 [Miralax] 17 gm PO DAILY packet 11/12/22 Ciprofloxacin HCl [Cipro] 500 mg PO Q12HR 5 Days #10 tab 11/15/22 Allergies Allergy/AdvReac Type Severity Reaction Status Date / Time No Known Allergies Allergy Verified 12/08/22 18:04 Review of Systems ROS Other: All systems not noted in ROS Statement are negative. <Ronald Villagran - Last Filed: 12/08/22 18:28> ROS Other: All systems not noted in ROS Statement are negative. <Trung Perkins - Last Filed: 12/08/22 22:07> ROS Statement: Those systems with pertinent positive or pertinent negative responses have been documented in the HPI. Past Medical History Past Medical History: Atrial Fibrillation, CVA/TIA, Dementia, Hearing Disorder / Deafness, Hyperlipidemia, Memory Impairment, Prostate Disorder, Renal Disease, Sleep Apnea/CPAP/BIPAP Additional Past Medical History / Comment(s): tia 2018 ?, cva 2019, urinary incontinence, glaucoma History of Any Multi-Drug Resistant Organisms: None Reported Past Surgical History: Hernia Repair, Prostate Surgery Additional Past Surgical History / Comment(s): bladder stimulator in 2021, States thinks he had a TURP. Past Anesthesia/Blood Transfusion Reactions: No Reported Reaction Past Psychological History: No Psychological Hx Reported Smoking Status: Never smoker Past Alcohol Use History: None Reported Past Drug Use History: None Reported - Past Family History Mother Family Medical History: Cancer Father Family Medical History: Myocardial Infarction ([place]) Sister(s) Family Medical History: CVA/TIA <Ronald Villagran - Last Filed: 12/08/22 18:28> General Exam Limitations: no limitations General appearance: alert, in no apparent distress Respiratory exam: Present: normal lung sounds bilaterally Cardiovascular Exam: Present: regular rate, normal rhythm GI/Abdominal exam: Present: distended, tenderness (Suprapubic tenderness palpation.) Psychiatric exam: Present: normal affect Skin exam: Present: warm, dry <Ronald Villagran - Last Filed: 12/08/22 18:28> Course Vital Signs 12/08/22 12/08/22 18:02 20:15 Temperature 98.2 F 97.7 F Pulse Rate 78 74 Respiratory 18 18 Rate Blood Pressure 101/70 169/85 O2 Sat by Pulse 97 97 Oximetry Medical Decision Making <Trung Perkins - Last Filed: 12/08/22 22:07> - Medical Decision Making Was pt. sent in by a medical professional or institution (, PA, [employer], urgent care, hospital, or fpc...) When possible be specific @ -Dr. Rosado Did you speak to anyone other than the patient for history (EMS, parent, family, police, friend...)? What history was obtained from this source @ -Family member gave history of presenting illness including direction to remove Johnson catheter today by urologist Did you review nursing and triage notes (agree or disagree)? Why? @ -I reviewed and agree with nursing and triage notes Were old charts reviewed (outside hosp., previous admission, EMS record, old EKG, old radiological studies, urgent care reports/EKG's, fpc records)? Report findings @ -No old charts were reviewed Differential Diagnosis (chest pain, altered mental status, abdominal pain women, abdominal pain men, vaginal bleeding, weakness, fever, dyspnea, syncope, headache, dizziness, GI bleed, back pain, seizure, CVA, palpatations, mental health, musculoskeletal)? @ -Urinary retention, urethral stricture, fecal impaction this is not an all inclusive last EKG interpreted by me (3pts min.). @ -n/a X-rays interpreted by me (1pt min.). @ -None done CT interpreted by me (1pt min.). @ -None done U/S interpreted by me (1pt. min.). @ -None done What testing was considered but not performed or refused? (CT, X-rays, U/S, labs)? Why? @ -None What meds were considered but not given or refused? Why? @ -None Did you discuss the management of the patient with other professionals (professionals i.e. Dr., PA, [employer], lab, RT, psych nurse, nephrology social worker, service correspondent, teacher, navigation officer, family independence case manager)? Give summary @ -No Was smoking cessation discussed for >3mins.? @ -No Was critical care preformed (if so, how long)? @ -No Were there social determinants of health that impacted care today? How? (Homelessness, low income, unemployed, alcoholism, drug addiction, transpor tation, low edu. Level, literacy, decrease access to med. care, nursing home, rehab)? @ -No Was there de-escalation of care discussed even if they declined (Discuss DNR or withdrawal of care, Hospice)? DNR status @ -No What co-morbidities impacted this encounter? (DM, HTN, Smoking, COPD, CAD, Cancer, CVA, ARF, Chemo, Hep., AIDS, mental health diagnosis, sleep apnea, morbid obesity)? @ -History of atrial fibrillation, CVA, dementia, hyperlipidemia, prostate Was patient admitted / discharged? Hospital course, mention meds given and route, prescriptions, significant lab abnormalities, going to OR and other pertinent info. @ -Discharged Nontoxic-appearing 82-year-old male presents to the emergency room with urinary retention. Patient's family member states she removed the Johnson catheter as directed by the urologist at 11:00 and has not been able to urinate since. Patient denies any fevers or chills. No nausea or vomiting. Denies any pain, states fullness of the bladder only. Bladder scan performed showing 876 mL. Johnson catheter placed draining clear y ellow urine. Patient feeling much better. Patient discharged home with Johnson catheter given a leg bag and instructed in use. Agreeable to discharge and following up with the urologist Dr. Rosado tomorrow. Case discussed with Dr. Wagoner Undiagnosed new problem with uncertain prognosis? @ -No Drug Therapy requiring intensive monitoring for toxicity (Heparin, Nitro, Insulin, Cardizem)? @ -No Were any procedures done? @ -No Diagnosis/symptom? @ -Urinary retention Acute, or Chronic, or Acute on Chronic? @ -Acute on chronic Uncomplicated (without systemic symptoms) or Complicated (systemic symptoms)? @ -Uncomplicated Side effects of treatment? @ -No Exacerbation, Progression, or Severe Exacerbation? @ -No Poses a threat to life or bodily function? How? (Chest pain, [place], [place], pneumonia, PE, COPD, DKA, ARF, appy, cholecystitis, CVA, Diverticulitis, Homicidal, Suicidal, threat to staff... and all critical care pts) @ -No (Trung Perkins) Disposition <Ronald Villagran - Last Filed: 12/08/22 18:28> Is patient prescribed a controlled substance at d/c from ED?: No Time of Disposition: 20:04 <Trung Perkins - Last Filed: 12/08/22 22:07> Clinical Impression: Urinary retention Disposition: HOME SELF-CARE Condition: Good Instructions (If sedation given, give patient instructions): Urinary Retention in Men (ED) Additional Instructions: Follow-up with your urologist tomorrow. Return to the emergency room with any new or concerning symptoms including fevers, no urine output from catheter, pain or fevers. Referrals: Naz Ruby DO [Primary Care Provider] - 1-2 days Joseph Rosado MD [STAFF PHYSICIAN] - 1-2 days
[2022-12-08 20:15] VITALS: BP 169/85; PULSE 74; TEMP 97.7
== END 2022-12-08 20:30 | disposition home or self-care (01) ==
LOC: EC 17:28
DX: R33.9 Retention of urine, unspecified (principal); I48.91 Unspecified atrial fibrillation; E78.5 Hyperlipidemia, unspecified; G47.30 Sleep apnea, unspecified; Z79.899 Other long term (current) drug therapy
CPT/HCPCS: 99283

== ENCOUNTER → 2023-01-04 | Outpatient (CLI) | payer MEDICARE ==
--- NOTE | 2023-01-04 10:51 | MR ---
EXAMINATION TYPE: MR Prostate wo/w con DATE OF EXAM: 01/04/2023 9:27 AM COMPARISON: None. CLINICAL INDICATION:Male, 82 years old with history of R97.20; PHH, TECHNIQUE: Multi-planar, multi-sequence imaging of the pelvis is performed prior to and following the uncomplicated administration of bolus intravenous gadolinium. CONTRAST: 9 Gadavist Interpretive Criteria: PI-RADS v2.1 SERUM PSA: 18.7 on 10/11/2022. 16.8 on 08/20/2022 4.3 on 07/07/2022 SURGICAL PATHOLOGY: No data available. FINDINGS: Prostatic dimensions: 5.2 x 4.9 x 3.8 cm. Ellipsoid Volume: 50.70 (PSA density=0.37 ng/mL/mL) CENTRAL GLAND (Central and Transition Zones/CZ+TZ): Hypertrophic stromal nodules noted bilaterally. There is some abnormal high DWI signal within the lef t mid gland that extends into the peripheral zone described below. PERIPHERAL ZONE (PZ): PI-RADS 5 lesion extending away from the posterior left lateral peripheral gland extending into the a djacent soft tissues there is heterogenous appearance of the gland which has high DWI and low ADC sig nal. PERIPROSTATIC TISSUES:/SEMINAL VESICLES (SV): Irregular soft tissue structure extending within the posterior lateral left peripheral gland measurin g 5.4 x 1.3 x 2.6 cm this area does demonstrate restricted diffusion. LYMPH NODES: No enlarged pelvic lymph node. Specifically no greater than 1.0 cm in short axis lymph nodes identifi ed. REMAINING PELVIS: Lama catheter in place. The urinary bladder is decompressed. No abnormal free or organized intrapelv ic fluid collection. No pathologic bowel dilation or mural thickening. Fat-containing left inguinal hernia. OSSEOUS STRUCTURES: Abnormal signal within the sacrum, it is unclear if this is patient's nerve stimulator wire lead alona uring an susceptibility artifact measuring 3.0 x 2.8 cm Labral cysts on the right suggestive of labral tear IMPRESSION: 1. PI-RADS 5 lesion within the left mid gland central/peripheral zone with extension through the pros mann capsule and into the adjacent soft tissues including the left seminal vesicles. This fingerlike projection extending away the posterior lateral aspect measuring up to 5.4 cm away from the prostate gland. Abnormal signal in the sacrum could represent susceptibility artifact from patient's nerve sti mulator. Clinical correlation for lead placement recommended. Consider either medicine gallium-68 PSM A scan. 2. Moderate BPH, estimated gland volume 50.70 mL. 3. Right hip. Labral cysts suggestive of labral tear.
== END | disposition home or self-care (01) ==
LOC: RADMRIMAIN 08:12
PROVIDERS: ATTEND Urology
DX: N40.0 Benign prostatic hyperplasia without lower urinary tract symptoms (principal); N42.89 Other specified disorders of prostate; R97.20 Elevated prostate specific antigen [PSA]
CPT/HCPCS: 72197; A9585

== ENCOUNTER → 2023-05-09 | Outpatient (CLI) | payer MEDICARE ==
--- NOTE | 2023-05-09 15:45 | NM ---
EXAMINATION TYPE: NM bone scan whole body DATE OF EXAM: 05/09/2023 COMPARISON: NONE CLINICAL INDICATION: Male, 82 years old with history of C61 prostate ca; Delayed whole-body scanning was performed following the injection of 22.3 mCi Tc 99m MDP. Images acq uired 3 hours post injection. FINDINGS: Abnormal uptake involving the sternoclavicular joints likely post arthritic. Soft tissue contaminatio n overlying the left leg noted. Moderate intensity uptake involving the right mandible likely related to periodontal disease. There is mild intensity uptake throughout the lower cervical and thoracic spine and moderate intensit y in the lumbar spine. Findings are most likely degenerative. IMPRESSION: No diagnostic evidence of metastasis. Suspect the abnormal uptake involving the lumbar spine is most likely degenerative. Would recommend x-ray correlation for confirmation.
== END | disposition home or self-care (01) ==
LOC: RADNMMAIN 10:39
PROVIDERS: ATTEND Urology
DX: C61 Malignant neoplasm of prostate (principal)
CPT/HCPCS: 78306; A9503

== ENCOUNTER → 2023-09-12 | Outpatient (CLI) | payer MEDICARE ==
--- NOTE | 2023-09-12 15:17 | CT ---
EXAMINATION TYPE: CT brain wo con CT DLP: 1072.3 mGycm, Automated exposure control for dose reduction was used. DATE OF EXAM: 09/12/2023 3:10 PM COMPARISON: CT brain 11/09/2022. CLINICAL INDICATION:Male, 83 years old with history of S09.90XA UNSPECIFIED INJURY OF HEAD, INITIAL e ncounter, fall TECHNIQUE: Brain: Axial CT images of the brain were obtained with coronal and sagittal reformats created and rev iewed. Contrast used: None. Oral contrast used: None. FINDINGS: Brain: Extra-axial spaces: No abnormal extra-axial fluid collections. Ventricular system: Within normal limits Cerebral parenchyma: No acute intraparenchymal hemorrhage or mass effect. The schreiber-white junction is well differentiated. Bilateral basal ganglia calcifications are reidentified. Cerebellum: Unremarkable. Mass effect: No evidence of midline shift. Intracranial vasculature: unremarkable Soft tissues: Normal. Calvarium/osseous structures: No depressed skull fracture. Paranasal sinuses and mastoid air cells: Mild scattered paranasal sinus disease. Visualized orbits: Orbital contents are intact. IMPRESSION: No acute intracranial process.
== END | disposition home or self-care (01) ==
LOC: RADCTMAIN 14:43
PROVIDERS: ATTEND Family Medicine
DX: S09.90XA Unspecified injury of head, initial encounter (principal); W19.XXXA Unspecified fall, initial encounter
CPT/HCPCS: 70450

== ENCOUNTER 2024-04-01 22:21 | Emergency (ER) | payer MEDICARE ==
[2024-04-01 22:32] VITALS: TEMP 98
--- NOTE | 2024-04-01 23:10 | ED ---
Fall HPI - General Chief Complaint: Fall Stated Complaint: fall, head injury Time Seen by Provider: 04/01/24 23:07 Source: patient, family, RN notes reviewed Mode of arrival: ambulatory - History of Present Illness Initial Comments: 83-year-old male with past medical history of atrial fibrillation, CVA, dementia, hyperlipidemia presenting to the ER with chief complaint of head injury prior to arrival. Patient states he was walking in the garage when he fell backwards onto the cement. Denies loss of consciousness. Patient does not remember exactly how he fell but denies any symptoms surrounding the fall such as chest pain, shortness of breath, abdominal pain, headaches. Patient is currently endorsing a headache, no other symptoms. Patient does take Xarelto. Takes lisinopril/hydrochlorothiazide daily for blood pressure. - Related Data Home Medications Medication Instructions Recorded Confirmed Atorvastatin Calcium [Lipitor] 20 mg PO HS 05/06/20 11/07/22 Timolol 0.5% Ophth Soln [Timoptic 1 drop RIGHT EYE TID 05/06/20 11/07/22 0.5% Ophth Soln] Donepezil [Aricept] 5 mg PO BID 06/23/22 11/07/22 Escitalopram [Lexapro] 10 mg PO DAILY 06/23/22 11/07/22 Memantine [Namenda] 10 mg PO BID 11/07/22 11/07/22 Mirabegron [Myrbetriq] 50 mg PO DAILY 11/07/22 11/07/22 oxyBUTYnin chloride [oxyBUTYnin 5 mg PO DAILY 11/07/22 11/07/22 chloride ER] Previous Rx's Medication Instructions Recorded Apixaban [Eliquis] 2.5 mg PO BID #60 tab 11/12/22 Ketoconazole 2% Cream [Nizoral 2%] 1 applic TOPICAL BID PRN #0 11/12/22 Magnesium Oxide [Mag-Ox] 400 mg PO BID #0 tab 11/12/22 amLODIPine [Norvasc] 5 mg PO BID #30 tab 11/12/22 polyethylene glycoL 3350 [Miralax] 17 gm PO DAILY packet 11/12/22 Ciprofloxacin HCl [Cipro] 500 mg PO Q12HR 5 Days #10 tab 11/15/22 Allergies Allergy/AdvReac Type Severity Reaction Status Date / Time No Known Allergies Allergy Verified 04/01/24 22:26 Review of Systems ROS Statement: Those systems with pertinent positive or pertinent negative responses have been documented in the HPI. ROS Other: All systems not noted in ROS Statement are negative. Past Medical History Past Medical History: Atrial Fibrillation, CVA/TIA, Dementia, Hearing Disorder / Deafness, Hyperlipidemia, Memory Impairment, Prostate Disorder, Renal Disease, Sleep Apnea/CPAP/BIPAP Additional Past Medical History / Comment(s): tia 2018 ?, cva 2019, urinary incontinence, glaucoma History of Any Multi-Drug Resistant Organisms: None Reported Past Surgical History: Hernia Repair, Prostate Surgery Additional Past Surgical History / Comment(s): bladder stimulator in 2021, States thinks he had a TURP. Past Anesthesia/Blood Transfusion Reactions: No Reported Reaction Past Psychological History: No Psychological Hx Reported Smoking Status: Never smoker Past Alcohol Use History: None Reported Past Drug Use History: None Reported - Past Family History Mother Family Medical History: Cancer Father Family Medical History: Myocardial Infarction (LA) Sister(s) Family Medical History: CVA/TIA General Exam Limitations: physical limitation General appearance: alert, in no apparent distress Head exam: Present: normocephalic, other (Large hematoma present on posterior scalp, no active bleeding or lacerations) Eye exam: Present: normal appearance, PERRL, EOMI. Absent: scleral icterus, conjunctival injection, periorbital swelling ENT exam: Present: normal exam, mucous membranes moist Neck exam: Present: normal inspection. Absent: tenderness, meningismus, lymphadenopathy Respiratory exam: Present: normal lung sounds bilaterally. Absent: respiratory distress, wheezes, rales, rhonchi, stridor Cardiovascular Exam: Present: regular rate, normal rhythm, normal heart sounds. Absent: systolic murmur, diastolic murmur, rubs, gallop, clicks GI/Abdominal exam: Present: soft, normal bowel sounds. Absent: distended, tenderness, guarding, rebound, rigid Neurological exam: Present: alert, oriented X3, CN II-XII intact Psychiatric exam: Present: normal affect, normal mood Skin exam: Present: warm, dry, intact, normal color. Absent: rash Course Vital Signs 04/01/24 04/01/24 04/02/24 22:27 23:00 00:00 Temperature 98.0 F Pulse Rate 68 67 61 Respiratory 16 12 16 Rate Blood Pressure 221/95 194/94 218/107 O2 Sat by Pulse 99 98 97 Oximetry 04/02/24 01:00 Temperature Pulse Rate 63 Respiratory 16 Rate Blood Pressure 189/96 O2 Sat by Pulse 97 Oximetry Medical Decision Making - Medical Decision Making Was pt. sent in by a medical professional or institution (, PA, TRAINING AND DEVELOPMENT MANAGER, urgent care, hospital, or alf...) When possible be specific @ -No Did you speak to anyone other than the patient for history (EMS, parent, family, police, friend...)? What history was obtained from this source @ -Patient's supplemented history Did you review nursing and triage notes (agree or disagree)? Why? @ -I reviewed and agree with nursing and triage notes Were old charts reviewed (outside hosp., previous admission, EMS record, old EKG, old radiological studies, urgent care reports/EKG's, alf records)? Report findings @ -No old charts were reviewed Differential Diagnosis (chest pain, altered mental status, abdominal pain women, abdominal pain men, vaginal bleeding, weakness, fever, dyspnea, syncope, headache, dizziness, GI bleed, back pain, seizure, CVA, palpatations, mental health, musculoskeletal)? @ -Differential Syncope: Valvular disease, hypertrophic cardiomyopathy, pulmonary embolism, tamponade, t achycardia, bradycardia, LA, hypovolemia, hemorrhage, dissection, anemia, intracranial hemorrhage, seizure, hypoglycemia, carbon monoxide poisoning, this is not meant to be an all-inclusive list. EKG interpreted by me (3pts min.). @ -As above X-rays interpreted by me (1pt min.). @ -Chest x-ray reveals no acute process CT interpreted by me (1pt min.). @ -CT reveals no acute intracranial process, chronic underlying presumed age- related findings, unchanged from previous, superficial scalp contusion changes overlying left parieto-occipital region with 1.1 x 1.7 x 2.1 cm hematoma noted internally, cervical spine reveals no acute process U/S interpreted by me (1pt. min.). @ -None done What testing was considered but not performed or refused? (CT, X-rays, U/S, labs)? Why? @ -None What meds were considered but not given or refused? Why? @ -None Did you discuss the management of the patient with other professionals (professionals i.e. , PARK, TRAINING AND DEVELOPMENT MANAGER, lab, RT, psych nurse, psychiatric social worker supervisor, exec. creative director, t eacher, armor officer, rn case manager)? Give summary @ -No Was smoking cessation discussed for >3mins.? @ -No Was critical care preformed (if so, how long)? @ -No Were there social determinants of health that impacted care today? How? (Homelessness, low income, unemployed, alcoholism, drug addiction, transportation, low edu. Level, literacy, decrease access to med. care, intermediate, rehab)? @ -No Was there de-escalation of care discussed even if they declined (Discuss DNR or withdrawal of care, Hospice)? DNR status @ -No What co-morbidities impacted this encounter? (DM, HTN, Smoking, COPD, CAD, Cance r, CVA, ARF, Chemo, Hep., AIDS, mental health diagnosis, sleep apnea, morbid obesity)? @ -None Was patient admitted / discharged? Hospital course, mention meds given and route, prescriptions, significant lab abnormalities, going to OR and other pertinent info. @ -Discharge. This is an 83-year-old male presenting with fall with head injury on [facility]. Patient denies loss of consciousness. He is not certain what caused him to fall. He is endorsing a headache, otherwise no other symptoms. Denies chest pain, shortness of breath, abdominal pain. Vital signs remarkable for hypertension at 221/95, other vital signs within acceptable limits. On examination, there is a large hematoma and posterior scalp. No other obvious signs of trauma. Code coag is initiated at this time. EKG reveals normal sinus rhythm with no ST changes. CT brain and C-spine revealed no acute intracranial process, there is a superficial scalp contusion changes overlying left parieto- occipital region with 1.1 x 1.7 x 2.1 cm hematoma noted internally. Lab work including CBC, CMP, coags, troponin largely unremarkable. Troponin 0.014 is low compared to previous. Patient was given dose of lisinopril for hypertension. Blood pressure recheck was 189/96. Discussed negative results with patient and . There is not appear to be emergent etiology causing fall today, however advised close follow-up with PCP for hypertension and strict return precautions. Patient and are agreeable to plan. Supportive care discussed for hematoma. Case was discussed with my ED attending Dr. Wagoner. Patient discharg ed in stable condition. Undiagnosed new problem with uncertain prognosis? @ -No Drug Therapy requiring intensive monitoring for toxicity (Heparin, Nitro, Insulin, Cardizem)? @ -No Were any procedures done? @ -No Diagnosis/symptom? @ -Fall with head injury, hypertension Acute, or Chronic, or Acute on Chronic? @ -Acute Uncomplicated (without systemic symptoms) or Complicated (systemic symptoms)? @ -Uncomplicated Side effects of treatment? @ -No Exacerbation, Progression, or Severe Exacerbation? @ -No Poses a threat to life or bodily function? How? (Chest pain, USA, LA, pneumonia, PE, COPD, DKA, ARF, appy, cholecystitis, CVA, Diverticulitis, Homicidal, Suicidal, threat to staff... and all critical care pts) @ -Not at this time - Lab Data Result diagrams: 04/01/24 23:16 04/01/24 23:16 Lab Results 04/01/24 04/01/24 04/01/24 Range/Units 23:16 23:16 23:16 WBC 8.2 (3.8-10.6) k/uL RBC 3.90 L (4.30-5.90) m/uL Hgb 12.9 L (13.0-17.5) gm/dL Hct 37.2 L (39.0-53.0) % MCV 95.3 (80.0-100.0) fL MCH 33.0 (25.0-35.0) pg MCHC 34.7 (31.0-37.0) g/dL RDW 13.1 (11.5-15.5) % Plt Count 200 (150-450) k/uL MPV 7.3 Neutrophils % 72 % Lymphocytes % 18 % Monocytes % 6 % Eosinophils % 2 % Basophils % 1 % Neutrophils # 5.9 (1.3-7.7) k/uL Lymphocytes # 1.4 (1.0-4.8) k/uL Monocytes # 0.5 (0-1.0) k/uL Eosinophils # 0.1 (0-0.7) k/uL Basophils # 0.1 (0-0.2) k/uL PT 12.7 H (10.0-12.5) sec INR 1.2 H (<1.2) APTT 32.1 H (22.0-30.0) sec Sodium 139 (137-145) mmol/L Potassium 3.6 (3.5-5.1) mmol/L Chloride 101 (98-107) mmol/L Carbon Dioxide 31 H (22-30) mmol/L Anion Gap 7 mmol/L BUN 18 (9-20) mg/dL Creatinine 0.83 (0.66-1.25) mg/dL Est GFR (CKD-EPI)AfAm >90 (>60 ml/min/1.73 sqM) Est GFR (CKD-EPI)NonAf 81 (>60 ml/min/1.73 sqM) Glucose 111 H (74-99) mg/dL Plasma Lactic Acid Babar (0.7-2.0) mmol/L Calcium 8.5 (8.4-10.2) mg/dL Total Bilirubin 0.7 (0.2-1.3) mg/dL AST 36 (17-59) U/L ALT 27 (4-49) U/L Alkaline Phosphatase 60 (38-126) U/L Troponin I (0.000-0.034) ng/mL Total Protein 6.8 (6.3-8.2) g/dL Albumin 4.2 (3.5-5.0) g/dL 04/01/24 04/01/24 Range/Units 23:16 23:16 WBC (3.8-10.6) k/uL RBC (4.30-5.90) m/uL Hgb (13.0-17.5) gm/dL Hct (39.0-53.0) % MCV (80.0-100.0) fL MCH (25.0-35.0) pg MCHC (31.0-37.0) g/dL RDW (11.5-15.5) % Plt Count (150-450) k/uL MPV Neutrophils % % Lymphocytes % % Monocytes % % Eosinophils % % Basophils % % Neutrophils # (1.3-7.7) k/uL Lymphocytes # (1.0-4.8) k/uL Monocytes # (0-1.0) k/uL Eosinophils # (0-0.7) k/uL Basophils # (0-0.2) k/uL PT (10.0-12.5) sec INR (<1.2) APTT (22.0-30.0) sec Sodium (137-145) mmol/L Potassium (3.5-5.1) mmol/L Chloride (98-107) mmol/L Carbon Dioxide (22-30) mmol/L Anion Gap mmol/L BUN (9-20) mg/dL Creatinine (0.66-1.25) mg/dL Est GFR (CKD-EPI)AfAm (>60 ml/min/1.73 sqM) Est GFR (CKD-EPI)NonAf (>60 ml/min/1.73 sqM) Glucose (74-99) mg/dL Plasma Lactic Acid Babar 1.1 (0.7-2.0) mmol/L Calcium (8.4-10.2) mg/dL Total Bilirubin (0.2-1.3) mg/dL AST (17-59) U/L ALT (4-49) U/L Alkaline Phosphatase (38-126) U/L Troponin I 0.014 (0.000-0.034) ng/mL Total Protein (6.3-8.2) g/dL Albumin (3.5-5.0) g/dL - EKG Data -: EKG Interpreted by Me EKG Comments: Normal sinus rhythm with no ST changes. Ventricular rate 69 bpm, FL interval 196, QRS duration 110, QT/QTc 465/484 Disposition Clinical Impression: Head injury, Hypertension Disposition: HOME SELF-CARE Condition: Stable Instructions (If sedation given, give patient instructions): Fall Prevention f or Older Adults (ED) Additional Instructions: Follow-up with PCP as discussed. Please return to the Emergency Department if symptoms worsen or any other concerns. Is patient prescribed a controlled substance at d/c from ED?: No Referrals: Naz Ruby DO [Primary Care Provider] - 1-2 days Time of Disposition: 01:24
[2024-04-01 23:28] LABS: Basophils # (A) 0.1 k/uL (0-0.2); Basophils % (A) 1 %; Eosinophils # (A) 0.1 k/uL (0-0.7); Eosinophils % (A) 2 %; HCT 37.2 % (39.0-53.0); HGB 12.9 gm/dL (13.0-17.5); Lymphocytes # (A) 1.4 k/uL (1.0-4.8); Lymphocytes % (A) 18 %; MCHC 34.7 g/dL (31.0-37.0); MCV 95.3 fL (80.0-100.0); Mean Platelet Volume 7.3; Monocytes # (A) 0.5 k/uL (0-1.0); Monocytes % (A) 6 %; Neutrophils # (A) 5.9 k/uL (1.3-7.7); Neutrophils % (A) 72 %; Platelet Count 200 k/uL (150-450); RDW 13.1 % (11.5-15.5); WBC 8.2 k/uL (3.8-10.6)
[2024-04-01 23:38] LABS: INR 1.2 (<1.2); Partial Thromboplastin Time 32.1 sec (22.0-30.0); Prothrombin Time 12.7 sec (10.0-12.5)
[2024-04-01 23:43] LABS: ALT 27 U/L (4-49); AST 36 U/L (17-59); African American GFR (CKD) >90 (>60 ml/min/1.73 sqM); Albumin 4.2 g/dL (3.5-5.0); Alkaline Phosphatase 60 U/L (38-126); Anion Gap 7 mmol/L; Blood Urea Nitrogen 18 mg/dL (9-20); Calcium 8.5 mg/dL (8.4-10.2); Carbon Dioxide 31 mmol/L (22-30); Chloride 101 mmol/L (98-107); Glucose 111 mg/dL (74-99); Non-African American GFR(CKD) 81 (>60 ml/min/1.73 sqM); Potassium 3.6 mmol/L (3.5-5.1); Sodium 139 mmol/L (137-145); Total Bilirubin 0.7 mg/dL (0.2-1.3); Total Protein 6.8 g/dL (6.3-8.2)
[2024-04-01] MEDS: ACETAMINOPHEN TAB 325 MG TAB PO STA (23:46)
--- NOTE | 2024-04-02 00:14 | CT ---
EXAM: CT Head Without Intravenous Contrast CLINICAL HISTORY: head injury TECHNIQUE: Axial computed tomography images of the head/brain without intravenous contrast. CTDI is 45.2 mGy and DLP is 1079 mGy-cm. This CT exam was performed using one or more of the following dose reduction techniques: automated exposure control, adjustment of the mA and/or kV according to patient size, and/or use of iterative reconstruction technique. COMPARISON: CT head without contrast 11/09/2022 FINDINGS: Brain: No intracranial hemorrhage. No significant mass effect. No cortical infarct. Chronic appearing prominence of the cerebral sulci and sylvian fissures are noted. Mild periventricular deep white matter hypodense changes noted. Physiologic basal ganglia calcifications. Ventricles: Unremarkable. No ventriculomegaly. Bones/joints: Unremarkable. No acute fracture. Soft tissues: Superficial scalp contusive changes overlying the left parieto-occipital region. There is a heterogeneous ovoid presumed hematoma noted internally measuring 1.1 x 1.7 x 2.1 cm. No radiopaque foreign body or subcutaneous emphysema. Sinuses: Unremarkable as visualized. No acute sinusitis. Mastoid air cells: Unremarkable as visualized. No mastoid effusion. IMPRESSION: 1. No acute intracranial process identified. Chronic underlying presumed incidental age-related findings, not significantly altered when compared to the previous examination. 2. Superficial scalp contusive changes overlying the left parieto- occipital region with a 1.1 x 1.7 x 2.1 cm hematoma noted internally. No radiopaque foreign body or subcutaneous emphysema. No skull fracture. EXAM: CT Cervical Spine Without Intravenous Contrast CLINICAL HISTORY: head injury TECHNIQUE: Axial computed tomography images of the cervical spine without intravenous contrast. CTDI is 14.5 mGy and DLP is 432.5 mGy-cm. This CT exam was performed using one or more of the following dose reduction techniques: automated exposure control, adjustment of the mA and/or kV according to patient size, and/or use of iterative reconstruction technique. COMPARISON: CTA neck 05/06/2020 FINDINGS: Vertebrae: The vertebral bodies are intact without acute osseous traumatic injury. Minimal chronic anterior wedging noted at C5 and C6 levels. 1-2 mm retrolisthesis involving C4 and C5. The facet joints are well aligned without subluxation or dislocation. The pedicles, transverse processes and spinous processes are intact. Diffuse facet hypertrophic arthropathy noted bilaterally. Discs/spinal canal/neural foramina: This patient's narrowing with circumferential disc marginal osteophyte changes and vacuum phenomenon noted at C4-5 through C6-7. Soft tissues: Unremarkable. Lung apices: The included lung apices demonstrate no evidence for acute traumatic injury. IMPRESSION: No acute osseous traumatic injury or significant acute traumatic abnormal alignment involving the cervical spine. Underlying chronic multilevel degenerative changes noted, not significantly progressed from the previous CTA neck examination.
--- NOTE | 2024-04-02 00:23 | XR ---
EXAM: XR Chest, 1 View CLINICAL HISTORY: syncope TECHNIQUE: Frontal view of the chest. COMPARISON: Chest 2 views dated 11/07/2022 FINDINGS: Lungs: No definite focal airspace consolidation. The pulmonary vasculature is unremarkable. Pleural space: Unremarkable. No pneumothorax. No large pleural effusion. Heart: Unremarkable. No cardiomegaly. Mediastinum: The mediastinal contours are stable, accounting for lordotic technique. No tracheal deviation. Similar atherosclerotic calcification of the aortic arch. Bones/joints: Unremarkable. No acute fracture. IMPRESSION: No focal consolidation or acute cardiopulmonary process identified.
[2024-04-02] MEDS: lisinopriL 10 MG TAB PO STA (00:39)
[2024-04-02 01:44] VITALS: BP 185/82; PULSE 64; RESP 15
== END 2024-04-02 01:54 | disposition home or self-care (01) ==
LOC: EC 22:21
DX: S09.90XA Unspecified injury of head, initial encounter (principal); I10 Essential (primary) hypertension; W18.30XA Fall on same level, unspecified, initial encounter; Y93.01 Activity, walking, marching and hiking
CPT/HCPCS: 36415; 70450; 71045; 72125; 80053; 83605; 84484; 85025; 85610; 85730; 93005; 99284

== ENCOUNTER 2024-04-16 18:32 | Emergency (ER) | payer MEDICARE ==
--- NOTE | 2024-04-16 19:04 | ED ---
General Adult HPI - General Chief complaint: Fall Stated complaint: Fall Time Seen by Provider: 04/16/24 18:44 Source: patient Mode of arrival: wheelchair Limitations: physical limitation - History of Present Illness Initial comments: Dictation was produced using [employer] dictation software. please excuse any grammatical, word or spelling errors. Chief Complaint: 83-year-old male presents after fall History of Present Illness: 83-year-old male presents to the emergency department with fall. Patient turned really quickly caused him to lose his balance he fell hit the back of his head on the drywall. Patient fell to the ground. No loss of consciousness. Patient takes Xarelto. States that he has pain to the back of his head. No loss of consciousness. The ROS documented in this emergency department record has been reviewed and confirmed by me. Those systems with pertinent positive or negative responses have been documented in the HPI. All other systems are other negative and/or noncontributory. - Related Data Home Medications Medication Instructions Recorded Confirmed Atorvastatin Calcium [Lipitor] 20 mg PO HS 05/06/20 11/07/22 Timolol 0.5% Ophth Soln [Timoptic 1 drop RIGHT EYE TID 05/06/20 11/07/22 0.5% Ophth Soln] Donepezil [Aricept] 5 mg PO BID 06/23/22 11/07/22 Escitalopram [Lexapro] 10 mg PO DAILY 06/23/22 11/07/22 Memantine [Namenda] 10 mg PO BID 11/07/22 11/07/22 Mirabegron [Myrbetriq] 50 mg PO DAILY 11/07/22 11/07/22 oxyBUTYnin chloride [oxyBUTYnin 5 mg PO DAILY 11/07/22 11/07/22 chloride ER] Previous Rx's Medication Instructions Recorded Apixaban [Eliquis] 2.5 mg PO BID #60 tab 11/12/22 Ketoconazole 2% Cream [Nizoral 2%] 1 applic TOPICAL BID PRN #0 11/12/22 Magnesium Oxide [Mag-Ox] 400 mg PO BID #0 tab 11/12/22 amLODIPine [Norvasc] 5 mg PO BID #30 tab 11/12/22 polyethylene glycoL 3350 [Miralax] 17 gm PO DAILY packet 11/12/22 Ciprofloxacin HCl [Cipro] 500 mg PO Q12HR 5 Days #10 tab 11/15/22 Allergies Allergy/AdvReac Type Severity Reaction Status Date / Time No Known Allergies Allergy Verified 04/16/24 18:41 Review of Systems ROS Statement: Those systems with pertinent positive or pertinent negative responses have been documented in the HPI. ROS Other: All systems not noted in ROS Statement are negative. Past Medical History Past Medical History: Atrial Fibrillation, CVA/TIA, Dementia, Hearing Disorder / Deafness, Hyperlipidemia, Memory Impairment, Prostate Disorder, Renal Disease, Sleep Apnea/CPAP/BIPAP Additional Past Medical History / Comment(s): tia 2017 ?, cva 2019, urinary incontinence, glaucoma History of Any Multi-Drug Resistant Organisms: None Reported Past Surgical History: Hernia Repair, Prostate Surgery Additional Past Surgical History / Comment(s): bladder stimulator in 2021, States thinks he had a TURP. Past Anesthesia/Blood Transfusion Reactions: No Reported Reaction Past Psychological History: No Psychological Hx Reported Smoking Status: Never smoker Past Alcohol Use History: None Reported Past Drug Use History: None Reported - Past Family History Mother Family Medical History: Cancer Father Family Medical History: Myocardial Infarction (NH) Sister(s) Family Medical History: CVA/TIA General Exam - General Exam Comments Initial Comments: PHYSICAL EXAM: General Impression: Alert and oriented x3, not in acute distress HEENT: Normocephalic atraumatic, extra-ocular movements intact, pupils equal and reactive to light bilaterally, mucous membranes moist. Cardiovascular: Heart regular rate and rhythm Chest: Able to complete full sentences, no retractions, no tachypnea Abdomen: abdomen soft, non-tender, non-distended, no organomegaly Musculoskeletal: Pulses present and equal in all extremities, no peripheral edema Motor: no focal deficits noted Neurological: CN II-XII grossly intact, no focal motor or sensory deficits noted Skin: Intact with no visualized rashes Psych: Normal affect and mood Limitations: physical limitation Course Vital Signs 04/16/24 04/16/24 04/16/24 18:33 19:01 19:48 Temperature 98.5 F Pulse Rate 68 67 65 Respiratory 18 20 16 Rate Blood Pressure 192/76 163/76 163/76 O2 Sat by Pulse 97 98 98 Oximetry 04/16/24 20:30 Temperature Pulse Rate 62 Respiratory 12 Rate Blood Pressure 186/86 O2 Sat by Pulse 97 Oximetry EKG Findings - EKG Comments: EKG Findings:: My EKG interpretation: Ventricular rate 59, A-fib with slow response, QRS 102, QTc 40. No QTC prolongation, no ST or T-wave changes noted. Overall, this EKG is unremarkable Medical Decision Making - Medical Decision Making Was pt. sent in by a medical professional or institution (, PA, HAMPER [employer]ACHINE, urgent care, hospital, or prison...) When possible be specific @ -No Did you speak to anyone other than the patient for history (EMS, parent, family, police, friend...)? What history was obtained from this source @ -No Did you review nursing and triage notes (agree or disagree)? Why? @ -I reviewed and agree with nursing and triage notes Were old charts reviewed (outside hosp., previous admission, EMS record, old EKG, old radiological studies, urgent care reports/EKG's, prison records)? Report findings @ -No old charts were reviewed Differential Diagnosis (chest pain, altered mental status, abdominal pain women, abdominal pain men, vaginal bleeding, musculoskeletal, weakness, fever, dyspnea, syncope, headache, dizziness, GI bleed, back pain, seizure, CVA, palpatations, mental health)? @ -Differential Headache: Migraine, tension, cluster, carbon monoxide, central venous thrombosis, pension karma temporal arteritis, acute closure glaucoma, intercranial hemorrhage, mastoiditis, sinusitis, head injury, this is not meant to be an all-inclusive list. EKG interpreted by me (3pts min.). @ -See above X-rays interpreted by me (1pt min.). @ -Chest and pelvis x-ray shows no acute processes CT interpreted by me (1pt min.). @ -CT brain shows no acute processes U/S interpreted by me (1pt. min.). @ -None done What testing was considered but not performed or refused? (CT, X-rays, U/S, labs)? Why? @ -None What meds were considered but not given or refused? Why? @ -None Was smoking cessation discussed for >3mins.? @ -No Were there social determinants of health that impacted care today? How? (Homelessness, low income, unemployed, alcoholism, drug addiction, transportation, low edu. Level, literacy, decrease access to med. care, [place] [facility], rehab)? @ -No Was there de-escalation of care discussed even if they declined (Discuss DNR or withdrawal of care, Hospice)? DNR status @ -No What co-morbidities impacted this encounter? (DM, HTN, Smoking, COPD, CAD, Cancer, CVA, ARF, Chemo, Hep., AIDS, mental health diagnosis, sleep apnea, morbid obesity)? @ -None Was patient admitted / discharged? Hospital course, mention meds given and route, prescriptions, significant lab abnormalities, going to OR and other pertinent info. @ -83-year-old male presents to the emergency room after he turned quickly lost his balance and hit his head on the drywall. He fell to the ground landed on his bottom. Vital signs stable. Patient has no complaints except for some mild posterior head pain. Imagings and labs unremarkable. Patient reevaluated at bedside 8:44 PM found to be stable to condition. Patient will be discharged. Advised follow-up with primary care doctor. Did you discuss the management of the patient with other professionals (professionals i.e. , PA, H[employer]ACHINE, lab, RT, psych nurse, social service manager, navy diver, teacher, patrol community service officer, patient case manager)? Give summary @ -No Was critical care preformed (if so, how long)? @ -No Undiagnosed new problem with uncertain prognosis? @ -No Drug Therapy requiring intensive monitoring for toxicity (Heparin, Nitro, Insulin, Cardizem)? @ -No Were any procedures done? @ -No Diagnosis/symptom? Acute, or Chronic, or Acute on Chronic? Uncomplicated (without systemic symptoms) or Complicated (systemic symptoms)? @ -Head contusion Side effects of treatment? @ -No Exacerbation, Progression, or Severe Exacerbation? @ -No Poses a threat to life or bodily function? How? (Chest pain, [place], NH, pneumonia, PE, COPD, DKA, ARF, appy, cholecystitis, CVA, Diverticulitis, Homicidal, Suic idal, threat to staff... and all critical care pts) @ -No - Lab Data Result diagrams: 04/16/24 19:26 04/16/24 19:26 Lab Results 04/16/24 04/16/24 Range/Units 19:26 19: WBC 7.7 (3.8-10.6) k/uL RBC 3.96 L (4.30-5.90) m/uL Hgb 12.9 L (13.0-17.5) gm/dL Hct 37.8 L (39.0-53.0) % MCV 95.4 (80.0-100.0) fL MCH 32.5 (25.0-35.0) pg MCHC 34.1 (31.0-37.0) g/dL RDW 13.1 (11.5-15.5) % Plt Count 190 (150-450) k/uL MPV 7.6 Neutrophils % 71 % Lymphocytes % 17 % Monocytes % 8 % Eosinophils % 1 % Basophils % 0 % Neutrophils # 5.5 (1.3-7.7) k/uL Lymphocytes # 1.3 (1.0-4.8) k/uL Monocytes # 0.6 (0-1.0) k/uL Eosinophils # 0.1 (0-0.7) k/uL Basophils # 0.0 (0-0.2) k/uL Sodium 138 (137-145) mmol/L Potassium 3.7 (3.5-5.1) mmol/L Chloride 98 (98-107) mmol/L Carbon Dioxide 36 H (22-30) mmol/L Anion Gap 4 mmol/L BUN 27 H (9-20) mg/dL Creatinine 1.09 (0.66-1.25) mg/dL Est GFR (CKD-EPI)AfAm 72 (>60 ml/min/1.73 sqM) Est GFR (CKD-EPI)NonAf 63 (>60 ml/min/1.73 sqM) Glucose 101 H (74-99) mg/dL Calcium 8.8 (8.4-10.2) mg/dL Disposition Clinical Impression: Fall Disposition: HOME SELF-CARE Condition: Good Instructions (If sedation given, give patient instructions): Fall Prevention for Older Adults (ED) Is patient prescribed a controlled substance at d/c from ED?: No Referrals: Naz Ruby DO [Primary Care Provider] - 1-2 days Time of Disposition: 20:38
--- NOTE | 2024-04-16 19:26 | CT ---
EXAMINATION TYPE: CT brain cspine wo con DATE OF EXAM: 04/16/2024 7:17 PM COMPARISON: Previous CT brain/cervical spine study dated 04/01/2024. CLINICAL INDICATION: Male, 83 years old with history of head injury; fall on thinners TECHNIQUE: Brain: Multiple axial CT images of the brain were obtained without IV contrast. Cspine: Axial CT images from the skull base to the inferior aspect of T2 we obtained without intraven ous contrast. Coronal and sagittal reformatted images were also reviewed. . CT DLP: 1416.1 mGycm, Automated exposure control for dose reduction was used. FINDINGS: Brain: Extra-axial spaces: No abnormal extra-axial fluid collections. Ventricular system: Prominent compatible with generalized cerebral volume loss. Cerebral parenchyma: No acute intraparenchymal hemorrhage or mass effect. The schreiber-white junction is acutely differentiated. Scattered hypoattenuating areas are seen within the white matter. Cerebellum: Unremarkable. Mass effect: No evidence of midline shift. Intracranial vasculature: unremarkable Soft tissues: Normal. Calvarium/osseous structures: No depressed skull fracture. Paranasal sinuses and mastoid air cells: Clear. Visualized orbits: Orbital contents are intact. Previous bilateral cataract lens extraction. Cervical spine: Fracture: None. Osseous structures: Unremarkable Vertebral alignment: Straightening of the normal cervical spine lordotic curvature. Minimal anterolis thesis of C3 on C4. Spinal canal/Neural Foramina: Multilevel facet arthropathy and uncovertebral hypertrophy in combinati on with posterior disc osteophyte complex these cause varying degrees of multilevel neural foraminal and spinal canal stenosis. Multilevel intervertebral disc space loss, most pronounced at C4-C5 there is severe disc space loss. Multiple anterior ossification formation. Neck soft tissues: Prevertebral soft tissues are within normal limits. Other: The airway is patent. The lung apices are clear. IMPRESSION: 1. No acute intracranial process. 2. No acute fracture or traumatic dislocation of the cervical spine. 3. Multilevel cervical spine degenerative changes as above. [facility], , 04/16/2024 7:24 PM
[2024-04-16 19:30] LABS: Basophils % (A) 0 %; Eosinophils # (A) 0.1 k/uL (0-0.7); Eosinophils % (A) 1 %; HCT 37.8 % (39.0-53.0); HGB 12.9 gm/dL (13.0-17.5); Lymphocytes # (A) 1.3 k/uL (1.0-4.8); Lymphocytes % (A) 17 %; MCH 32.5 pg (25.0-35.0); MCHC 34.1 g/dL (31.0-37.0); MCV 95.4 fL (80.0-100.0); Mean Platelet Volume 7.6; Monocytes # (A) 0.6 k/uL (0-1.0); Monocytes % (A) 8 %; Neutrophils # (A) 5.5 k/uL (1.3-7.7); Neutrophils % (A) 71 %; Platelet Count 190 k/uL (150-450); RBC 3.96 m/uL (4.30-5.90); RDW 13.1 % (11.5-15.5); WBC 7.7 k/uL (3.8-10.6)
--- NOTE | 2024-04-16 19:50 | XR ---
EXAMINATION TYPE: XR chest 2V DATE OF EXAM: 04/16/2024 7:42 PM COMPARISON: Multiple prior chest radiograph, most recently dated 04/01/2024. CLINICAL INDICATION: Male, 83 years old with history of fall; [facility] TECHNIQUE: XR chest 2V Frontal and lateral views of the chest. FINDINGS: Lungs/Pleura: There is no evidence of pleural effusion, focal consolidation, or pneumothorax. Pulmonary vascularity: Unremarkable. Heart/mediastinum: Cardiomediastinal silhouette is unremarkable. Musculoskeletal: No acute osseous pathology. Other findings: None IMPRESSION: No acute cardiopulmonary disease/process. [facility], , 04/16/2024 7:48 PM
--- NOTE | 2024-04-16 19:52 | XR ---
EXAMINATION TYPE: XR pelvis AP view DATE OF EXAM: 04/16/2024 7:42 PM COMPARISON: None available. CLINICAL INDICATION: Male, 83 years old with history of fall; [facility] TECHNIQUE: XR pelvis AP view, examined in a single projection. FINDINGS: There is no evidence of fracture or dislocation. There is no soft tissue abnormality. Sacra l stimulator device noted overlying the iliac bone. No abnormal calcifications are present. The spine appears intact. The hips appear intact. 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 Lumbosacral spinal degenerative changes. IMPRESSION: No acute osseous pathology. [facility], , 04/16/2024 7:50 PM
[2024-04-16 19:56] LABS: African American GFR (CKD) 72 (>60 ml/min/1.73 sqM); Anion Gap 4 mmol/L; Blood Urea Nitrogen 27 mg/dL (9-20); Calcium 8.8 mg/dL (8.4-10.2); Carbon Dioxide 36 mmol/L (22-30); Chloride 98 mmol/L (98-107); Glucose 101 mg/dL (74-99); Non-African American GFR(CKD) 63 (>60 ml/min/1.73 sqM); Potassium 3.7 mmol/L (3.5-5.1); Sodium 138 mmol/L (137-145)
[2024-04-16 21:01] VITALS: BP 180/88; PULSE 67; RESP 16; TEMP 97.6
== END 2024-04-16 21:00 | disposition home or self-care (01) ==
LOC: EC 18:32
DX: S09.90XA Unspecified injury of head, initial encounter (principal); W19.XXXA Unspecified fall, initial encounter
CPT/HCPCS: 36415; 70450; 71046; 72125; 72170; 80048; 85025; 93005; 99284